=== PATIENT | female | born 1950 | race Caucasian/White ===

== ENCOUNTER → 2020-05-23 02:05 | Outpatient (CLI) | payer MEDICARE, SELFPAY ==
[2020-05-23 19:33] LABS: SARS-CoV-2 RNA PCR Negative
== END ==
PROVIDERS: PCP Internal Medicine; Visit Provider Internal Medicine Gastroenterology
DX: Z01.812 Encounter for preprocedural laboratory examination (principal); Z20.822 Contact with and (suspected) exposure to COVID-19
CPT/HCPCS: C9803; U0003; U0005

== ENCOUNTER 2020-05-27 01:52 | Day surgery (SDC) | payer MEDICARE, SELFPAY ==
[2020-05-18 12:58] VITALS: BMI 38.0
[2020-05-27 11:37] VITALS: BP 141/88; PULSE 94; RESP 18; TEMP 36.2; O2SAT 98; BMI 37.9
[2020-05-27 11:37] LABS: Glucose Point of Care 132 (65-105)
[2020-05-27] MEDS: LACTATED RINGERS 1,000 ML 150 ML IV CONT (11:51)
--- NOTE | 2020-05-27 11:52 | WPDANESEPPF ---
Anes - Initial Pre Proc Eval Procedure: Operation Date: 05/27/20 13:30 Proposed Procedures p Screening Colonoscopy - Nam Garza DO Date/Time: 05/27/20 11:52 Surgeon: Nam Garza DO Pre Op Diagnosis: neoplasm screening Patient Data Age: 70 Gender: F Height: 5 ft 7 in Weight: 109.9 kg Last Vital Signs Temp 97.1 F L 05/27/20 11:37 Pulse 94 05/27/20 11:37 Resp 18 05/27/20 11:37 BP 141/88 H 05/27/20 11:37 Pulse Ox 98 05/27/20 11:37 Allergies Allergy/AdvReac Type Severity Reaction Status Date / Time No Known Allergies Allergy Mild Verified 05/27/20 11:37 Home Medications Medication Instructions Recorded Confirmed Type fluocinonide 0.05 % topical cream 1 applic TOPICAL BID 12/17/18 05/27/20 History metoprolol succinate 25 mg 12.5 mg PO DAILY #90 tablet 01/14/20 05/27/20 Rx tablet,extended release 24 hr potassium chloride 10 mEq 10 meq PO .every other day #90 03/09/20 05/27/20 Rx tablet,extended release tablet atorvastatin 10 mg tablet See Rx Instructions .ROUTE 05/04/20 05/27/20 Rx .COMPLEX #90 tablet furosemide 40 mg tablet See Rx Instructions .ROUTE 05/04/20 05/27/20 Rx .COMPLEX #90 tablet glimepiride 2 mg tablet See Rx Instructions .ROUTE 05/04/20 05/27/20 Rx .COMPLEX #135 tablet irbesartan 300 mg tablet See Rx Instructions .ROUTE 05/04/20 05/27/20 Rx .COMPLEX #90 tablet metformin 1,000 mg tablet See Rx Instructions .ROUTE 05/04/20 05/27/20 Rx .COMPLEX #180 tablet empagliflozin [Jardiance] 10 mg PO DAILY 05/18/20 05/27/20 History Laboratory Tests 05/27/20 11:33 POC Capillary Glucose 132 mg/dl H mg/dl (65-105) Patient hx anesthesia problems: none Family hx anesthesia problems: none PMFSH Past Medical History Medical History Postmenopausal Screening for breast cancer Screening for colon cancer Family History Family History Mother Family history of elevated blood lipids Father Family history of diabetes mellitus in first degree relative Family history of coronary artery disease Cerebrovascular accident Family history of Alzheimer's disease Other Diabetes mellitus Family history of hypercholesterolemia Social History Social History Years smoked: 4 Smoking status: Former smoker Tobacco type: cigarettes Alcohol intake: current Living arrangements: with family Gender identity (if verbalized by the patient): Female Spiritual care concerns: No Anes - Eval Final PreProcedure Day of Procedure 05/27/20 11:52 Patient weight: obese Heart: regular rate and rhythm Lungs: clear to auscultation Airway: Mallampati scale class II Neurological: alert and oriented Last oral intake: >/= 8 hours ASA classification: III Emergent: no Anesthetic plan: proceed Anesthesia type and monitoring: general GIVS and standard monitoring Informed Consent: The patient's anesthetic plan and its attendant risks and benefits were discussed with the patient/family/POA. Questions were solicited and answers provided to the satisfaction of the patient/family/POA.
--- NOTE | 2020-05-27 11:54 | WPDANESEPPF ---
Anes - Initial Pre Proc Eval Procedure: Operation Date: 05/27/20 13:30 Proposed Procedures p Screening Colonoscopy - Nam Garza DO Date/Time: 05/27/20 11:54 Surgeon: Nam Garza DO Pre Op Diagnosis: neoplasm screening Patient Data Age: 70 Gender: F Height: 5 ft 7 in Weight: 109.9 kg Last Vital Signs Temp 97.1 F L 05/27/20 11:37 Pulse 94 05/27/20 11:37 Resp 18 05/27/20 11:37 BP 141/88 H 05/27/20 11:37 Pulse Ox 98 05/27/20 11:37 Allergies Allergy/AdvReac Type Severity Reaction Status Date / Time No Known Allergies Allergy Mild Verified 05/27/20 11:37 Home Medications Medication Instructions Recorded Confirmed Type fluocinonide 0.05 % topical cream 1 applic TOPICAL BID 12/17/18 05/27/20 History metoprolol succinate 25 mg 12.5 mg PO DAILY #90 tablet 01/14/20 05/27/20 Rx tablet,extended release 24 hr potassium chloride 10 mEq 10 meq PO .every other day #90 03/09/20 05/27/20 Rx tablet,extended release tablet atorvastatin 10 mg tablet See Rx Instructions .ROUTE 05/04/20 05/27/20 Rx .COMPLEX #90 tablet furosemide 40 mg tablet See Rx Instructions .ROUTE 05/04/20 05/27/20 Rx .COMPLEX #90 tablet glimepiride 2 mg tablet See Rx Instructions .ROUTE 05/04/20 05/27/20 Rx .COMPLEX #135 tablet irbesartan 300 mg tablet See Rx Instructions .ROUTE 05/04/20 05/27/20 Rx .COMPLEX #90 tablet metformin 1,000 mg tablet See Rx Instructions .ROUTE 05/04/20 05/27/20 Rx .COMPLEX #180 tablet empagliflozin [Jardiance] 10 mg PO DAILY 05/18/20 05/27/20 History Laboratory Tests 05/27/20 11:33 POC Capillary Glucose 132 mg/dl H mg/dl (65-105) Patient hx anesthesia problems: none Family hx anesthesia problems: none PMFSH Past Medical History Medical History Postmenopausal Screening for breast cancer Screening for colon cancer Family History Family History Mother Family history of elevated blood lipids Father Family history of diabetes mellitus in first degree relative Family history of coronary artery disease Cerebrovascular accident Family history of Alzheimer's disease Other Diabetes mellitus Family history of hypercholesterolemia Social History Social History Years smoked: 4 Smoking status: Former smoker Tobacco type: cigarettes Alcohol intake: current Living arrangements: with family Gender identity (if verbalized by the patient): Female Spiritual care concerns: No Anes - Eval Final PreProcedure Day of Procedure 05/27/20 11:54 Patient weight: obese Heart: regular rate and rhythm Lungs: clear to auscultation Airway: Mallampati scale class III Neurological: alert and oriented Last oral intake: >/= 8 hours ASA classification: III Emergent: no Anesthetic plan: proceed Anesthesia type and monitoring: general GIVS and standard monitoring Informed Consent: The patient's anesthetic plan and its attendant risks and benefits were discussed with the patient/family/POA. Questions were solicited and answers provided to the satisfaction of the patient/family/POA.
--- NOTE | 2020-05-27 12:02 | WPDGICN ---
GI Consult Note Consult date/time: 05/27/20 12:02 HPI: Reason for visit is colonoscopy. This very pleasant lady seen at the request of the primary physician. Impression: Screening colonoscopy. The patient is reported to have a thrombosed hemorrhoid /Temporal tag. Diabetes mellitus. Neuropathy. HTN. HLD. Obesity. Cardiomyopathy. Venous stasis. Recommendation: Colonoscopy. History: This very pleasant lady is negative GI review systems. She is reported to have a thrombosed hemorrhoid /hemorrhoidal tag. She is here for colonoscopy. She has never had a colonoscopy. General: very pleasant patient in no acute distress. HEENT: Head was normocephalic sclerae is clear mouth without masses neck was supple. Heart: Rate rhythm regular without S3 or S4.Systolic murmur 2nd right intercostal space in apex. Lungs: CTA. Abdomen: Soft with no guarding or rigidity. Bowel sounds were active. Neurologic: Cranial nerves 2 through 12 intact. No focal defects. No clonus. Musculoskeletal system: Revealed no joint tenderness or swelling no muscle atrophy. Extremities: Reveal no significant edema. Evidence a chronic venous stasis. Skin: Warm and dry with normal turgor. Mental status: intact. Patient is alert and oriented. Review of Systems Review of Systems: All systems reviewed & are unremarkable except as noted in HPI and below PMFSH Past Medical History Medical History (Updated 05/27/20 @ 11:55 by Gerardo Gilbert MD) Benign essential hypertension Cardiomyopathy no echo on the chart Hyperlipidemia Hypertension Postmenopausal Screening for breast cancer Screening for colon cancer Family History Family History Mother Family history of elevated blood lipids Father Family history of diabetes mellitus in first degree relative Family history of coronary artery disease Cerebrovascular accident Family history of Alzheimer's disease Other Diabetes mellitus Family history of hypercholesterolemia Social History Social History Years smoked: 4 Smoking status: Former smoker Tobacco type: cigarettes Alcohol intake: current Living arrangements: with family Gender identity (if verbalized by the patient): Female Spiritual care concerns: No Meds Home Medications and Allergies Home Medications Medication Instructions Recorded Confirmed Type fluocinonide 0.05 % topical cream 1 applic TOPICAL BID 12/17/18 05/27/20 History metoprolol succinate 25 mg 12.5 mg PO DAILY #90 tablet 01/14/20 05/27/20 Rx tablet,extended release 24 hr potassium chloride 10 mEq 10 meq PO .every other day #90 03/09/20 05/27/20 Rx tablet,extended release tablet atorvastatin 10 mg tablet See Rx Instructions .ROUTE 05/04/20 05/27/20 Rx .COMPLEX #90 tablet furosemide 40 mg tablet See Rx Instructions .ROUTE 05/04/20 05/27/20 Rx .COMPLEX #90 tablet glimepiride 2 mg tablet See Rx Instructions .ROUTE 05/04/20 05/27/20 Rx .COMPLEX #135 tablet irbesartan 300 mg tablet See Rx Instructions .ROUTE 05/04/20 05/27/20 Rx .COMPLEX #90 tablet metformin 1,000 mg tablet See Rx Instructions .ROUTE 05/04/20 05/27/20 Rx .COMPLEX #180 tablet empagliflozin [Jardiance] 10 mg PO DAILY 05/18/20 05/27/20 History Allergies Allergy/AdvReac Type Severity Reaction Status Date / Time No Known Allergies Allergy Mild Verified 05/27/20 11:37 Vital Signs Vital Signs - 24 hr 05/27/20 11:37 Temperature 36.2 C L Pulse Rate 94 Respiratory Rate 18 Blood Pressure 141/88 H Pulse Oximetry 98
[2020-05-27 12:42] VITALS: BP 113/67; PULSE 74; RESP 24; O2SAT 96
[2020-05-27 12:52] VITALS: BP 139/76; PULSE 78; RESP 27; O2SAT 96
--- NOTE | 2020-05-27 12:53 | SUR.PHASEII ---
MD Gilbert notified pt HR ranging from 80's to 150's. MD Garza at bedside at this time. pt denies complaints. no new orders. will continue to monitor.
[2020-05-27 13:02] VITALS: BP 141/72; PULSE 82; RESP 27; O2SAT 98
--- NOTE | 2020-05-27 13:03 | SUR.PHASEII ---
cardiac leads were adjusted. vs as charted.
== END 2020-05-27 13:18 | disposition home or self-care (01) ==
PROVIDERS: PCP Internal Medicine; Visit Provider Internal Medicine Gastroenterology
PROC: 0DJD8ZZ Inspection of Lower Intestinal Tract, Via Natural or Artificial Opening Endoscopic (ICD-10-PCS; CPT 45378; principal; 2020-05-27 13:30)
DX: Z12.11 Encounter for screening for malignant neoplasm of colon (principal); C44.520 Squamous cell carcinoma of anal skin; K43.9 Ventral hernia without obstruction or gangrene; E11.40 Type 2 diabetes mellitus with diabetic neuropathy, unspecified; I10 Essential (primary) hypertension; E78.5 Hyperlipidemia, unspecified; I42.9 Cardiomyopathy, unspecified; I87.8 Other specified disorders of veins; E66.9 Obesity, unspecified; Z68.37 Body mass index [BMI] 37.0-37.9, adult; Z87.891 Personal history of nicotine dependence; Z79.84 Long term (current) use of oral hypoglycemic drugs
CPT/HCPCS: 45380; 88305; 88342; J2704; J7120

== ENCOUNTER 2020-06-09 15:15 | Outpatient (CLI) | payer MEDICARE, SELFPAY ==
--- NOTE | ~2020-06-09 | CT_ITS ---
EXAMINATION: CT chest abdomen pelvis w con DATE: 06/09/2020 16:01 CDT INDICATION: Rectal mass TECHNIQUE: Computed tomography (CT) of the chest, abdomen, and pelvis was performed with 100 cc Omnip aque 350 intravenous contrast. The dose-length product was 1449.79 mGy-cm. COMPARISON: None FINDINGS: CHEST CT: There is calcified granuloma of the left lower lobe. There is dependent atelectasis. No endobronchial lesions. No pathologically enlarged thoracic lymph nodes. No significant pleural or pericardial effu pablito. ABDOMEN/PELVIS CT: The liver, spleen, adrenal glands and left kidney are unremarkable. There is a 3 mm nonobstructing ri ght renal stone. There are gallstones. The pancreas is atrophic containing calcifications and multipl e small cystic masses, largest measuring 1.8 cm. Nonobstructive bowel gas pattern. Normal appendix. There is a lower abdominal wall ventral hernia con taining nonobstructed transverse colon no definitive rectal mass identified. No pathologically enlarg ed lymph nodes. No lytic or blastic lesions. Severe thoracic and lumbar spondylosis with scoliosis. IMPRESSION: 1. Chronic pancreatitis with multiple small cystic masses of the pancreatic body measuring up to 1.8 cm. The differential diagnosis includes pseudocyst, intraductal papillary mucinous neoplasm (IPMN), m ucinous cystic neoplasm (MCN), and the less common serous cystadenoma and neuroendocrine tumor. 2: Nonobstructing right nephrolithiasis. 3: Large periumbilical hernia containing nonobstructed transverse colon. Reviewed, dictated and finalized at location A. IMPRESSION: 1. Chronic pancreatitis with multiple small cystic masses of the pancreatic bod y measuring up to 1.8 cm. The differential diagnosis includes pseudocyst, intra ductal papillary mucinous neoplasm (IPMN), mucinous cystic neoplasm (MCN), and the less common serous cystadenoma and neuroendocrine tumor. 2: Nonobstructing right nephrolithiasis. 3: Large periumbilical hernia containing nonobstructed transverse colon.
[2020-06-09 15:41] LABS: Estimated Glomerular Filt Rate 49
== END 2020-06-09 15:16 | disposition home or self-care (01) ==
LOC: ANHIMG 15:20
PROVIDERS: PCP Internal Medicine; Visit Provider Internal Medicine Gastroenterology
DX: K62.89 Other specified diseases of anus and rectum (principal); K42.9 Umbilical hernia without obstruction or gangrene; N20.0 Calculus of kidney; K85.90 Acute pancreatitis without necrosis or infection, unspecified
CPT/HCPCS: 71260; 74177; Q9967

== ENCOUNTER 2020-09-21 09:30 | Outpatient (CLI) | payer MEDICARE, SELFPAY ==
--- NOTE | 2020-09-21 09:30 | ECG_ITS ---
Measurements Intervals [place] Rate: 66 P: 49 ND: 168 QRS: -23 QRSD: 106 T: 30 QT: 384 QTc: 404 Interpretive Statements SINUS RHYTHM BORDERLINE R WAVE PROGRESSION, ANTERIOR LEADS BORDERLINE ST ABNORMALITY- HIGH LATERAL LEADS BASELINE ARTIFACT- I, II, III, AVR, AVL, AVF BORDERLINE ECG Electronically Signed On 09-21-2020 11:08:16 CDT by Rory King D.O.
== END 2020-09-21 09:31 | disposition home or self-care (01) ==
LOC: ANHSURGERY 09:34
PROVIDERS: PCP Internal Medicine; Visit Provider Surgery
DX: I10 Essential (primary) hypertension (principal); Z01.818 Encounter for other preprocedural examination; R94.31 Abnormal electrocardiogram [ECG] [EKG]
CPT/HCPCS: 93005

== ENCOUNTER 2020-09-24 11:07 | Observation (INO) | payer MEDICARE, SELFPAY ==
[2020-09-17 13:00] VITALS: BMI 37.9
--- NOTE | 2020-09-22 11:02 | PM.IMHP ---
H&P: HPI History of Present Illness Date/Time: 09/22/20 11:02 Chief Complaint: Large ventral hernia Narrative: the patient is a 70-year-old woman with qvo-scuvorz-qeawvwueg diabetes, obesity, hypertension and a history of cardiomyopathy. She underwent a colonoscopy last May. At this procedure she was noted to have a fungating mass at the anal verge. Biopsies of this showed squamous cell carcinoma. She underwent chemo radiation therapy, then I grow regimen, which was completed on August 07, 2020. She followed up with radiation oncology approximately 1 month later and the radiation associated perineal skin issues had resolved. During the patient's colonoscopy on 05/27/2020, the scope was only able to be advanced to the mid transverse colon due to a large ventral hernia containing the transverse colon. This was verified on a CT scan of the chest abdomen and pelvis done on 06/09/2020. Prior to the colonoscopy, the patient did not know she had her hernia. She did have a history of some bloody stools. I saw the patient both in May and then again in July. 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 Having completed her radiation therapy for anal canal cancer over 6 weeks ago, she is taken to surgery now for laparoscopic repair of a large ventral hernia. Review of Systems Review of Systems: All systems reviewed & are unremarkable except as noted in HPI and below Constitutional: Constitutional: Denies chills and Denies fever(s) ENT: Denies headache(s) Cardiovascular: Cardiovascular: Denies chest pain, Denies diaphoresis, Denies dyspnea and Denies paroxysmal nocturnal dyspnea Respiratory: Respiratory: Denies chest congestion, Denies cough and Denies dyspnea Gastrointestinal: Gastrointestinal: Denies bloating, Denies constipation and Denies nausea Integumentary/Breasts: Skin/Breast: Denies lesions and Denies rash Neurologic: Denies confusion and Denies headache(s) [facility] Past Medical History Medical History (Updated 09/22/20 @ 11:14 by Fabio Hoyt MD) Benign essential hypertension Cardiomyopathy no echo on the chart Hyperlipidemia Hypertension Postmenopausal Screening for breast cancer Screening for colon cancer Surgical History Surgical History History of right knee joint replacement Hx of colonoscopy unable to complete due to transverse colon in a hernia Family History Family History Mother Family history of elevated blood lipids Father Family history of diabetes mellitus in first degree relative Family history of coronary artery disease Cerebrovascular accident Family history of Alzheimer's disease Sibling Hodgkin disease Other Diabetes mellitus Family history of hypercholesterolemia Social History Social History (Updated 09/14/20 @ 10:53 by Kate Moran MA) Smoking packs per day: 0.5 Smoking cigarettes per day: 10.0 Years smoked: 4 Smoking pack-years: 2.00 Smoking status: Former smoker Tobacco type: cigarettes Second hand tobacco smoke exposure: Yes Smoking end date: 02/20/71 Additional smoking assessment comments: TEENAGE YEARS (16) Alcohol intake: never Alcohol use details: 3 times per year Substance use: never Substance use type: does not use Gender identity (if verbalized by the patient): Female Spiritual care concerns: No Meds Home Medications and Allergies Home Medications Medication Instructions Recorded Confirmed Type atorvastatin 10 mg tablet See Rx Instructions .ROUTE 05/04/20 09/18/20 Rx .COMPLEX #90 tablet furosemide 40 mg tablet See Rx Instructions .ROUTE 05/04/20 09/18/20 Rx .COMPLEX #90 tablet glimepiride 2 mg tablet See Rx Instructions .ROUTE 05/04/20 09/18/20 Rx .COMPLEX #135 tablet metformin 1,000 mg
[2020-09-23] VITALS (19 sets, daily range): BP systolic 121–149; BP diastolic 55–96; PULSE 62–95; RESP 10–18; TEMP 36.1–36.4; O2SAT 94–99; BMI 36.3; BMI 36.8
[2020-09-23] MEDS: LACTATED RINGERS 1,000 ML 30 ML IV CONT ×2 (08:29→12:40)
[2020-09-23] MEDS: ACETAMINOPHEN 500 MG TABLET 1000 MG PO (08:29)
[2020-09-23] MEDS: KETOROLAC 15 MG/ML VIAL (*BKC) IV PUSH (08:29)
[2020-09-23 08:54] LABS: Glucose Point of Care 136 mg/dl (65-105)
--- NOTE | 2020-09-23 09:45 | WPDHPUPDATE1 ---
History and Physical Update Update Date/Time: 09/23/20 09:45 History and Physical has been reviewed, including an updated exam of the patient. There are NO changes in the patient's condition. Risks, benefits, and alternatives have been discussed and questions answered. Patient agrees to proceed with procedure.
--- NOTE | 2020-09-23 09:45 | WPDANESEPPF ---
Anes - Initial Pre Proc Eval Procedure: Operation Date: 09/23/20 09:30 Proposed Procedures p Laparoscopic Repair Ventral Hernia with Mesh - Fabio Hoyt MD Date/Time: 09/23/20 09:45 Surgeon: Fabio Hoyt MD Pre Op Diagnosis: Ventral hernia Patient Data Age: 70 Gender: F Height: 1.7 m Weight: 105.3 kg Last Vital Signs Temp 36.4 C 09/23/20 08:06 Pulse 71 09/23/20 08:06 Resp 18 09/23/20 08:06 BP 124/62 09/23/20 08:06 Pulse Ox 95 09/23/20 08:06 Allergies Allergy/AdvReac Type Severity Reaction Status Date / Time No Known Allergies Allergy Mild Verified 09/23/20 08:01 Home Medications Medication Instructions Recorded Confirmed Type atorvastatin 10 mg tablet See Rx Instructions .ROUTE 05/04/20 09/23/20 Rx .COMPLEX #90 tablet furosemide 40 mg tablet See Rx Instructions .ROUTE 05/04/20 09/23/20 Rx .COMPLEX #90 tablet glimepiride 2 mg tablet See Rx Instructions .ROUTE 05/04/20 09/23/20 Rx .COMPLEX #135 tablet metformin 1,000 mg tablet See Rx Instructions .ROUTE 05/04/20 09/23/20 Rx .COMPLEX #180 tablet empagliflozin 10 mg tablet 20 mg PO DAILY #30 tablet 07/27/20 09/23/20 Rx potassium chloride 10 mEq 10 meq PO DAILY #90 tablet 07/29/20 09/23/20 Rx tablet,extended release fluocinonide 0.05 % topical cream 1 applic TOPICAL BID PRN 09/14/20 09/23/20 History irbesartan 300 mg HS 09/17/20 09/23/20 History metoprolol succinate 12.5 mg PO HS 09/17/20 09/23/20 History Laboratory Tests 09/23/20 08:51 POC Capillary Glucose 136 mg/dl H mg/dl (65-105) Patient hx anesthesia problems: none Family hx anesthesia problems: none PMFSH Past Medical History Medical History Benign essential hypertension Cardiomyopathy no echo on the chart Hyperlipidemia Hypertension Postmenopausal Screening for breast cancer Screening for colon cancer Surgical History Surgical History History of right knee joint replacement Hx of colonoscopy unable to complete due to transverse colon in a hernia Family History Family History Mother Family history of elevated blood lipids Father Family history of diabetes mellitus in first degree relative Family history of coronary artery disease Cerebrovascular accident Family history of Alzheimer's disease Sibling Hodgkin disease Other Diabetes mellitus Family history of hypercholesterolemia Social History Social History Smoking packs per day: 0.5 Smoking cigarettes per day: 10.0 Years smoked: 3 Smoking pack-years: 1.50 Smoking status: Former smoker Tobacco type: cigarettes Second hand tobacco smoke exposure: Yes Smoking end date: 02/20/71 Additional smoking assessment comments: smoked only socially Alcohol intake: current Alcohol use details: 3 times per year Substance use: never Substance use type: does not use Living arrangements: with family Gender identity (if verbalized by the patient): Female Spiritual care concerns: No Anes - Eval Final PreProcedure Day of Procedure 09/23/20 09:45 Patient weight: obese Heart: regular rate and rhythm and murmur (II/ SM) Lungs: clear to auscultation Airway: Mallampati scale class II Neurological: alert and oriented Last oral intake: >/= 8 hours ASA classification: III Emergent: no Anesthetic plan: proceed Anesthesia type and monitoring: general ETT and standard monitoring Informed Consent: The patient's anesthetic plan and its attendant risks and benefits were discussed with the patient/family/POA. Questions were solicited and answers provided to the satisfaction of the patient/family/POA.
--- NOTE | 2020-09-23 09:52 | SUR.PREOP ---
PT AND DR BECK NOTIFIED THE OR ROOM IS RUNNING APPROX 30 MIN BEHIND.
[2020-09-23] MEDS: ceFAZolin 2 GM/D5W 50 ML 2 GM/50 ML BAG IVPB (10:30)
[2020-09-23] MEDS: BUPIVACAINE/EPINEPHRINE 0.5% 50 ML VIAL (10:56)
--- NOTE | 2020-09-23 12:38 | W.PM.PROC2 ---
Procedure Note - Detailed Date of Procedure 09/23/20 Pre-op Diagnosis Ventral hernia Post-op Diagnosis same Procedure Performed Laparoscopic repair of large ventral hernia with 20 x 25 cm Symbotex mesh Surgeon Fbaio Hoyt MD Radiologic Technology Teacher Marycarmen VIVEROS Anesthesia general and local ( 0.5% Marcaine with epinephrine) Indications patient is a 70-year-old woman who has a large ventral hernia that started at the umbilicus but now represents chronic evisceration and a significant ventral hernia. She is noted to have transverse colon in the hernia and discomfort associated with it. It was then able to be reduced. She is taken to surgery now for laparoscopic repair. 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 Findings 6 x 6 cm defect. Fortunately the omentum and transverse colon reduced with minimal dissection. 25 x 20 cm Symbotex mesh was used oriented along the same line as the linea alba. Description of Procedure The patient was taken to surgery and induced into general anesthesia. Weeks catheter was placed. The entire abdomen was prepped and draped. Initial trocar was a 5 mm port placed in the left subcostal position. This would applied Medical optical trocar. Once intra-abdominal, it insufflated easily. From there we placed another 5 mm port in the left lateral abdomen and a 10 11 port in the left lower quadrant laterally. Later in the case we placed two 5 mm ports in the lateral right abdomen 1 in the upper quadrant, 1 in the right lower quadrant. The herniated omentum and transverse colon were easily seen. Using gentle traction and minimal dissection at the edge of the hernia defect this all reduced in 1 piece and did not have any adhesions that required deep dissection up in the hernia sac. The hernia defect looked pretty symmetric. I introduced a ruler into the abdominal cavity and actually measured this with the abdomen insufflated to 20 cm. It measured at 6 cm diameter and was essentially a anvik. From there, I reduced insufflation to 12 mm pressure. I used a 22 gauge needle and a marker. I placed cespedes on the skin at the margins of the hernia defect. I connected each of these dots to delineate where the hernia was located. The 25 x 20 cm mesh was chosen. It was placed symmetrically over the defect in the area were it would be placed intra-abdominally. I marked around the edges of the hernia mesh. I then marked where each of the transfascial sutures would be placed to position the mesh as desired. I then used 2 0 Hawkins-Lee suture and placed each of these transfascial sutures in the mesh. The mesh was then rolled and introduced into the abdominal cavity through the 10 11 left lower quadrant port. The mesh was unrolled and oriented appropriately. Using the [employer] suture pass device, I placed initially the lower abdominal midline transfascial suture. The right lateral transfascial suture was placed next. The left lateral transfascial suture was then placed. Finally the cephalad midline suture was placed. The left lateral suture had to be repositioned slightly more medial than it was placed initially. Once this was done the mesh was in good position. The Hawkins-Lee transfascial sutures were each tied down securing the mesh to the anterior abdominal wall. I then used the secure strap and placed absorbable tacks around the edges of the hernia defect securing the mesh to the abdominal wall. I moved out to each corner of the mesh and placed it in a flattened well secured position. It was at this point in the procedure that the 2 right-sided trocars were placed. I moved to the right side so that I could better position the left side of the mesh. Eventually the mesh was secured quite well with the secure straps. The repair looked to be as expected. I cut the transfascial sutures at the skin level. We stopped insufflation and evacuated CO2. The fascia was closed at the 10 11 port site with
[2020-09-23 12:49] LABS: Glucose Point of Care 165 mg/dl (65-105)
--- NOTE | 2020-09-23 14:48 | SUR.PHASEI ---
[id number] faxed floor notified
[2020-09-23 18:24] LABS: Glucose Point of Care 195 mg/dl (65-105)
[2020-09-23] MEDS: IBUPROFEN IV 800 MG/200 ML 800 MG/200 ML BAG 400 MG IVPB ×2 (19:57→23:53)
[2020-09-23] MEDS: GLIMEPIRIDE 1 MG TABLET PO (19:57)
[2020-09-23] MEDS: SENNA/DOCUSATE SODIUM TABLET 2 TAB PO (20:39)
[2020-09-23] MEDS: IRBESARTAN 150 MG TABLET 300 MG BY MOUTH (20:39)
[2020-09-23] MEDS: ENOXAPARIN 30 MG/0.3 ML SYRINGE SUB-Q (20:39)
[2020-09-23 22:16] LABS: Glucose Point of Care 187 mg/dl (65-105)
[2020-09-23] MEDS: METOPROLOL SUCCINATE EXT REL 12.5 MG TABCR PO (22:23)
[2020-09-24] VITALS (7 sets, daily range): BP systolic 109–142; BP diastolic 60–79; PULSE 64–84; RESP 14–16; TEMP 36.3–36.7; O2SAT 93–98
[2020-09-24] MEDS: IBUPROFEN IV 800 MG/200 ML 800 MG/200 ML BAG 400 MG IVPB ×3 (05:06→17:47)
[2020-09-24 05:45] LABS: Hematocrit 33.4 % (37.0-47.0); Hemoglobin 10.3 g/dL (12.0-15.0); Mean Corpuscular HGB Conc 30.8 g/dl (32-36); Mean Corpuscular Hemoglobin 28.1 pg (26-34); Mean Corpuscular Volume 91.3 fl (80-100); Mean Platelet Volume 9.8 fl (7.4-10.4); Platelet Count Result 217 k/mm3 (150-375); Red Blood Count 3.66 M/mm3 (4.2-5.4); Red Cell Distribution Width 24.1 % (11.5-14.5)
[2020-09-24 05:53] LABS: Anion Gap 5 mmol/L (8-16); Blood Urea Nitrogen 22 mg/dL (7-17); Calcium 8.8 mg/dL (8.4-10.2); Carbon Dioxide 27 mmol/L (22-30); Chloride 100 mmol/L (98-107); Estimated CRCL calculation 56 ml/min; Estimated Glomerular Filt Rate 55; Glucose 124 mg/dL (65-110); Potassium 4.3 mmol/L (3.4-5.0); Sodium 132 mmol/L (137-145)
--- NOTE | 2020-09-24 08:41 | PM.PNGS ---
Progress Note: A&P Assessment and Plan (1) Ventral hernia: Qualifiers: Obstruction and gangrene presence: without obstruction or gangrene Qualified Code(s): K43.9 - Ventral hernia without obstruction or gangrene Code(s): K43.9 - Ventral hernia without obstruction or gangrene Status: Chronic Assessment and Plan: pain being relieved very well with IV ibuprofen. Continue these as analgesics with morphine and [place] as backup. DC Weeks today. Increase ambulation. Advance diet to regular. Recheck labs again tomorrow. Doing well so far. (2) DM w/o complication type II: Code(s): E11.9 - Type 2 diabetes mellitus without complications Status: Chronic Assessment and Plan: Blood sugars under 200. Hospitalist to see. Continue sliding scale insulin and diabetic diet. (3) Hypertension: Qualifiers: Hypertension type: essential hypertension Qualified Code(s): I10 - Essential (primary) hypertension Code(s): I10 - Essential (primary) hypertension Status: Chronic Assessment and Plan: On home medications. Monitoring. (4) BMI 37.0-37.9, adult: Code(s): Z68.37 - Body mass index [BMI] 37.0-37.9, adult Status: Chronic Subjective Subjective Date/Time Seen: 09/24/20 08:41 Post Op day: 1 Patient reports: no new complaints, still having pain ( IV ibuprofen really helping), no flatus, no bowel movement and afebrile Exam Const: General: comfortable and no acute distress; No confusion Orientation/consciousness: patient oriented x3 and No confusion GI: Inspection: incision ( incisions dry and intact, healing well), obesity, no visible herniation and other ( minimal seroma, binder in place) GI Palp: Yes Soft to palpation, Yes Tenderness to palpation present (GI), No Guarding due to palpation present (GI), No Hernia present, No Ascites present and No Rebound tenderness present Auscultation: normal bowel sounds Neuro: General: patient oriented x3, no focal motor deficits and No confusion Extrem: General: no calf tenderness and no edema Psych: Affect: normal affect Insight: Good insight present (Psych) Judgement: Good judgement present (Psych) Objective Data Vital Signs Vital Signs: Vital Signs - 24 hr 09/23/20 12:45 09/23/20 13:00 09/23/20 13:15 Temperature 36.2 C L Pulse Rate 86 87 81 Respiratory Rate 14 16 10 L Blood Pressure 138/60 149/89 H 139/60 Pulse Oximetry 99 99 99 09/23/20 13:30 09/23/20 13:45 09/23/20 14:00 Temperature Pulse Rate 85 78 84 Respiratory Rate 18 12 16 Blood Pressure 142/68 H 125/73 137/66 Pulse Oximetry 97 94 95 09/23/20 14:15 09/23/20 14:30 09/23/20 14:50 Temperature Pulse Rate 80 78 75 Respiratory Rate 14 16 10 L Blood Pressure 136/75 131/60 121/75 Pulse Oximetry 98 96 09/23/20 15:05 09/23/20 15:30 09/23/20 15:45 Temperature 36.1 C L 36.2 C L Pulse Rate 62 82 81 Respiratory Rate 12 14 16 Blood Pressure 125/55 L 143/73 H 142/73 H Pulse Oximetry 96 98 97 09/23/20 16:15 09/23/20 17:15 09/23/20 18:00 Temperature 36.2 C L 36.2 C L 36.4 C Pulse Rate 95 89 90 Respiratory Rate 16 16 14 Blood Pressure 146/92 H 145/96 H 136/73 Pulse Oximetry 94 94 94 09/23/20 20:00 09/23/20 22:00 09/23/20 22:23 Temperature 36.3 C L Pulse Rate 89 89 89 Respiratory Rate 18 18 Blood Pressure 131/69 Pulse Oximetry 98 98 09/24/20 00:00 09/24/20 04:00 Temperature 36.3 C L 36.4 C Pulse Rate 74 69 Respiratory Rate 16 16 Blood Pressure 133/60 109/79 Pulse Oximetry 93 98 Intake/Output Intake/Output: Intake & Output 09/21/20 09/22/20 09/23/20 09/24/20 23:59 23:59 23:59 23:59 Intake Total 1340 900 Output Total 440 1400 Balance 900 -500 Meds/Results Medications: Active Medications Generic Name Dose Route Start Last Admin Trade Name Freq PRN Reason Stop Dose Admin Acetaminophen 500 mg 09/23/20 15:20 Acetaminophen 500 Mg Tablet PO Q6H PRN Mild
[2020-09-24] MEDS: POTASSIUM CHLORIDE 10 MEQ TABLET.ER PO (09:10)
[2020-09-24] MEDS: metFORMIN HCL 500 MG TABLET 1000 MG BY MOUTH ×2 (09:10→17:47)
[2020-09-24] MEDS: GLIMEPIRIDE 2 MG TABLET BY MOUTH (09:10)
[2020-09-24] MEDS: FUROSEMIDE 40 MG TABLET BY MOUTH (09:11)
[2020-09-24] MEDS: polyethylene glycoL 3350 17 GM POWD.PACK PO (09:11)
[2020-09-24 09:34] LABS: Glucose Point of Care 165 mg/dl (65-105)
--- NOTE | 2020-09-24 10:47 | WPDANESPN ---
Anes - Prog Note Post-Op Date/Time: 09/24/20 10:47 Cardiovascular status: normal Respiratory status: normal Airway patency: baseline Mental status: baseline Post-Op hydration status: normal Vital Signs: Last Vital Signs Temp 36.7 C 09/24/20 08:00 Pulse 66 09/24/20 08:00 Resp 16 09/24/20 08:00 BP 142/74 H 09/24/20 08:00 Pulse Ox 97 09/24/20 08:00 Pain Score (VAS): 0 I/O: Intake & Output 09/23/20 09/24/20 09/24/20 23:59 07:59 15:59 Intake Total 590 900 240 Output Total 300 1400 475 Balance 290 500 -235 Laboratory Tests 09/24/20 05:34 09/24/20 05:34 09/23/20 09/23/20 09/23/20 12:46 18:20 19:54 WBC RBC Hgb Hct MCV MCH MCHC RDW Plt Count MPV Sodium Potassium Chloride Carbon Dioxide Anion Gap BUN Creatinine Estim Creat Clear Calc Estimated GFR Glucose POC Capillary Glucose 165 H 195 H 187 H Calcium 09/24/20 09/24/20 09/24/20 05:34 05:34 09:09 WBC 8.0 RBC 3.66 L Hgb 10.3 L Hct 33.4 L MCV 91.3 MCH 28.1 MCHC 30.8 L RDW 24.1 H Plt Count 217 MPV 9.8 Sodium 132 L Potassium 4.3 Chloride 100 Carbon Dioxide 27 Anion Gap 5 L BUN 22 H Creatinine 1.00 Estim Creat Clear Calc 56 Estimated GFR 55 L Glucose 124 H POC Capillary Glucose 165 H Calcium 8.8 Post-procedural complaints: none Patient Feedback: Patient satisfied with anesthetic care.
[2020-09-24] MEDS: ENOXAPARIN 40 MG/0.4 ML SYRINGE SUB-Q (10:49)
[2020-09-24] MEDS: FAMOTIDINE 20 MG TABLET PO ×2 (10:49→21:56)
[2020-09-24 12:45] LABS: Glucose Point of Care 133 mg/dl (65-105)
--- NOTE | 2020-09-24 14:04 | PM.IMCN ---
Assessment and Plan Assessment and plan (1) DM w/o complication type II: Code(s): E11.9 - Type 2 diabetes mellitus without complications Status: Chronic Assessment and Plan: Jazmín Peañloza is a 70 year old female with history of noninsulin dependent diabetes, obesity, hypertension, cardiomyopathy, and squamous cell carcinoma, during recent procedure patient was found to have ventral hernia and patient was seen by surgery service and was taken to OR and had her surgical repair of the hernia, we have been consulted for medical management patient diabetes hypertension and any medical issues while in the hospital, patient's home medication have been resumed, patient blood sugar reasonably well controlled as well as blood pressure patient has no complaint of chest pain shortness of breath palpitation fever or chills. will continue to monitor patient with you if you have any question please feel free to contact us. (2) Hypertension: Qualifiers: Hypertension type: essential hypertension Qualified Code(s): I10 - Essential (primary) hypertension Code(s): I10 - Essential (primary) hypertension Status: Chronic Assessment and Plan: will continue home regimen and monitor. HPI Data of Consult Consult date: 09/24/20 Requesting Physician: Fabio Hoyt MD Primary Care Provider: Marcila Mendoza DO Consult Narrative Narrative: Jazmín Peñaloza is a 70 year old female with history of noninsulin dependent diabetes, obesity, hypertension, cardiomyopathy, and squamous cell carcinoma, during recent procedure patient was found to have ventral hernia and patient was seen by surgery service and was taken to OR and her surgical repair of the hernia, we have been consulted for medical management patient diabetes hypertension and any medical issues while in the hospital, patient's home medication have been resumed, patient blood sugar reasonably well controlled as well as blood pressure patient has no complaint of chest pain shortness of breath palpitation fever or chills. will continue to monitor patient with you if you have any question please feel free to contact us. Review of Systems Review of Systems: All systems reviewed & are unremarkable except as noted in HPI and below PMFSH Past Medical History Medical History Benign essential hypertension Cardiomyopathy no echo on the chart Hyperlipidemia Hypertension Postmenopausal Screening for breast cancer Screening for colon cancer Surgical History Surgical History History of right knee joint replacement Hx of colonoscopy unable to complete due to transverse colon in a hernia Family History Family History Mother Family history of elevated blood lipids Father Family history of diabetes mellitus in first degree relative Family history of coronary artery disease Cerebrovascular accident Family history of Alzheimer's disease Sibling Hodgkin disease Other Diabetes mellitus Family history of hypercholesterolemia Social History Social History Smoking packs per day: 0.5 Smoking cigarettes per day: 10.0 Years smoked: 3 Smoking pack-years: 1.50 Smoking status: Former smoker Tobacco type: cigarettes Second hand tobacco smoke exposure: Yes Smoking end date: 02/20/71 Additional smoking assessment comments: smoked only socially Alcohol intake: never Alcohol use details: 3 times per year Substance use: never Substance use type: does not use Living arrangements: with family Gender identity (if verbalized by the patient): Female Spiritual care concerns: Yes (Church) Meds Home Medications and Allergies Home Medications Medication Instructions Recorded Confirmed Type atorvas
[2020-09-24 17:11] LABS: Glucose Point of Care 124 mg/dl (65-105)
[2020-09-24] MEDS: GLIMEPIRIDE 1 MG TABLET PO (17:47)
--- NOTE | 2020-09-24 21:40 | PHAR ---
RX [id number] CONTAINS DRUG NAME: JARDIANCE INGREDIENTS: EMPAGLIFLOZIN -- 10 MG RELATED DOCUMENTS: DRUGDEX EVALUATIONS - EMPAGLIFLOZIN COLOR: LIGHT YELLOW SHAPE: HOH IMPRINT: S 10 FORM: ORAL TABLET
[2020-09-24] MEDS: IRBESARTAN 150 MG TABLET 300 MG BY MOUTH (21:55)
[2020-09-24] MEDS: SENNA/DOCUSATE SODIUM TABLET 2 TAB PO (21:55)
[2020-09-24] MEDS: METOPROLOL SUCCINATE EXT REL 12.5 MG TABCR PO (21:56)
[2020-09-24 22:06] LABS: Glucose Point of Care 146 mg/dl (65-105)
[2020-09-25] VITALS: BP 129/66; PULSE 74; RESP 16; TEMP 36.4; O2SAT 94
[2020-09-25] MEDS: IBUPROFEN IV 800 MG/200 ML 800 MG/200 ML BAG 400 MG IVPB (01:15)
[2020-09-25 05:36] LABS: Hemoglobin 10.6 g/dL (12.0-15.0); Mean Corpuscular HGB Conc 31.2 g/dl (32-36); Mean Corpuscular Hemoglobin 28.6 pg (26-34); Mean Corpuscular Volume 91.9 fl (80-100); Mean Platelet Volume 9.7 fl (7.4-10.4); Platelet Count Result 215 k/mm3 (150-375); Red Cell Distribution Width 24.4 % (11.5-14.5); White Blood Count 6.4 K/mm3 (4.5-10.0)
[2020-09-25 05:51] LABS: Anion Gap 6 mmol/L (8-16); Blood Urea Nitrogen 20 mg/dL (7-17); Calcium 8.8 mg/dL (8.4-10.2); Carbon Dioxide 24 mmol/L (22-30); Chloride 107 mmol/L (98-107); Estimated CRCL calculation 62 ml/min; Estimated Glomerular Filt Rate > 60; Glucose 101 mg/dL (65-110); Magnesium 2.1 mg/dL (1.6-2.3); Potassium 4.2 mmol/L (3.4-5.0); Sodium 137 mmol/L (137-145)
[2020-09-25 06:00] VITALS: BP 148/72; PULSE 67; RESP 18; TEMP 36.6; O2SAT 97
[2020-09-25] MEDS: IBUPROFEN IV 800 MG/200 ML 800 MG/200 ML BAG 300 MG IVPB (06:31)
[2020-09-25 08:04] LABS: Glucose Point of Care 92 mg/dl (65-105)
[2020-09-25] MEDS: metFORMIN HCL 500 MG TABLET 1000 MG BY MOUTH (09:23)
[2020-09-25] MEDS: GLIMEPIRIDE 2 MG TABLET BY MOUTH (09:24)
[2020-09-25] MEDS: ENOXAPARIN 40 MG/0.4 ML SYRINGE SUB-Q (09:24)
[2020-09-25] MEDS: FUROSEMIDE 40 MG TABLET BY MOUTH (09:25)
[2020-09-25] MEDS: FAMOTIDINE 20 MG TABLET PO (09:25)
[2020-09-25] MEDS: polyethylene glycoL 3350 17 GM POWD.PACK PO (09:26)
[2020-09-25 10:00] VITALS: BP 149/77; PULSE 68; RESP 16; TEMP 36.4; O2SAT 99
--- NOTE | 2020-09-25 11:11 | PM.DS ---
DS: Admitting Diagnosis Admitting Diagnosis large ventral hernia squamous cell cancer of the anal canal status post Joan regimen treatment type 2 diabetes morbid obesity essential hypertension DS: Discharge Diagnosis Discharge Diagnosis (1) Ventral hernia: Qualifiers: Obstruction and gangrene presence: without obstruction or gangrene Qualified Code(s): K43.9 - Ventral hernia without obstruction or gangrene Code(s): K43.9 - Ventral hernia without obstruction or gangrene Status: Chronic Assessment and Plan: underwent laparoscopic repair of ventral hernia with 25 x 20 cm Symbotex mesh on 09/23/2020. (2) Cancer of anal canal: Code(s): C21.1 - Malignant neoplasm of anal canal Status: Chronic (3) BMI 38.0-38.9,adult: Code(s): Z68.38 - Body mass index [BMI] 38.0-38.9, adult Status: Chronic (4) DM w/o complication type II: Code(s): E11.9 - Type 2 diabetes mellitus without complications Status: Chronic (5) Hypertension: Qualifiers: Hypertension type: essential hypertension Qualified Code(s): I10 - Essential (primary) hypertension Code(s): I10 - Essential (primary) hypertension Status: Chronic DS: Summary Hospital Course Hospital Course: Patient is a 70-year-old woman who finished chemo radiation therapy for squamous cell cancer of the anal canal in late July. She was noted at a colonoscopy last March 24 have a large ventral hernia with transverse colon in the hernia and unable to complete the colonoscopy due to the colon being in the hernia sac. She was seen in the office and prepared for surgery. She was taken to the operating room on 09/23/2020. A large central abdominal ventral hernia was noted with chronic evisceration. There was a large subcutaneous pocket below the umbilicus due to the chronically eviscerated omentum and transverse colon. There was no loss of abdominal domain. On 09/23/2020 the patient underwent an uneventful laparoscopic ventral hernia repair. A large piece of Symbotex mesh, 25 x 20 cm, was used. Patient has been an and binder to minimize the seroma since surgery. She was comfortable largely with the IV ibuprofen on a scheduled q.6 hour dose. This was converted to p.r.n. oral ibuprofen on the day of discharge. Hospitalist service saw the patient in consultation and assisted with management of her medical comorbidities including diabetes. Blood sugars were well controlled on the day of discharge. She was comfortable, tolerating food well and able to be discharged in the afternoon on postop day 2. Status at Discharge Functional status at discharge: independent ambulation Overall status at discharge: patient is progressing back to baseline Time Spent with Patient Time attestation: Total time spent providing and/or coordinating discharge services: Exam GI: Inspection: incision ( Healing well), Pannus present, obesity, no visible herniation and other ( minimal seroma, binder in place.) GI Palp: Yes Soft to palpation, Yes Tenderness to palpation present (GI) ( Mild tenderness) and No Hernia present Auscultation: normal bowel sounds DS: Data Data Completed and Pending Labs on day of discharge: Labs from last 24 hours 09/25/20 09/25/20 09/25/20 07:45 05:22 05:22 WBC 6.4 RBC 3.70 L Hgb 10.6 L Hct 34.0 L MCV 91.9 MCH 28.6 MCHC 31.2 L RDW 24.4 H Plt Count 215 MPV 9.7 Sodium 137 Potassium 4.2 Chloride 107 Carbon Dioxide 24 Anion Gap 6 L BUN 20 H Creatinine 0.90 Estim Creat Clear Calc 62 Estimated GFR > 60 Glucose 101 POC Capillary Glucose 92 Calcium 8.8 Magnesium 2.1 09/24/20 09/24/20 09/24/20 21:59 17:07 12:18 WBC RBC Hgb Hct MCV MCH MCHC RDW Plt Count MPV Sodium Potassium Chloride Carbon Dioxide Anion Gap BUN Creatinine Estim Creat Clear Calc
[2020-09-25] MEDS: POTASSIUM CHLORIDE 10 MEQ TABLET.ER PO (11:25)
[2020-09-25 13:40] LABS: Glucose Point of Care 81 mg/dl (65-105)
--- NOTE | 2020-09-25 14:11 | PM.IMPN ---
Progress Note: A&P Assessment and Plan (1) DM w/o complication type II: Code(s): E11.9 - Type 2 diabetes mellitus without complications Status: Chronic Assessment and Plan: 09/25/20 14:11 Jazmín Peñaloza is a 70 year old female with history of noninsulin dependent diabetes, obesity, hypertension, cardiomyopathy, and squamous cell carcinoma, during recent procedure patient was found to have ventral hernia and patient was seen by surgery service and was taken to OR and had her surgical repair of the hernia, we have been consulted for medical management patient diabetes hypertension and any medical issues while in the hospital, patient's home medication have been resumed, patient blood sugar reasonably well controlled as well as blood pressure patient has no complaint of chest pain shortness of breath palpitation fever or chills. will continue to monitor patient with you if you have any question please feel free to contact us. patient is clinically stable has no complaint of chest pain shortness of breath or dizziness, pain is controlled, her blood sugar within normal limits blood pressure close to target, patient was seen surgery service clinically stable discharge home. (2) Hypertension: Qualifiers: Hypertension type: essential hypertension Qualified Code(s): I10 - Essential (primary) hypertension Code(s): I10 - Essential (primary) hypertension Status: Chronic Assessment and Plan: will continue home regimen and monitor. Subjective Date/time seen: 09/25/20 14:11 Jazmín Peñaloza is a 70 year old female with history of noninsulin dependent diabetes, obesity, hypertension, cardiomyopathy, and squamous cell carcinoma, during recent procedure patient was found to have ventral hernia and patient was seen by surgery service and was taken to OR and had her surgical repair of the hernia, we have been consulted for medical management patient diabetes hypertension and any medical issues while in the hospital, patient's home medication have been resumed, patient blood sugar reasonably well controlled as well as blood pressure patient has no complaint of chest pain shortness of breath palpitation fever or chills. will continue to monitor patient with you if you have any question please feel free to contact us. patient is clinically stable has no complaint of chest pain shortness of breath or dizziness, pain is controlled, her blood sugar within normal limits blood pressure close to target, patient was seen surgery service clinically stable discharge home. Review of Systems Review of Systems: All systems reviewed & are unremarkable except as noted in HPI and below Exam Narrative: moderately obese Patient is comfortable, NAD HEENT: eyes are clear and none icteric LUNGS: normal respiratory efforts ABD: distended Lower extremities: no edema SKIN: nonjaundiced Neuro: grossly intact normal speech. Objective Data Vital Signs Vital Signs: Vital Signs - 24 hr 09/24/20 16:00 09/24/20 20:00 09/24/20 21:56 Temperature 98.0 F 97.9 F Pulse Rate 64 81 84 Respiratory Rate 16 14 Blood Pressure 130/60 140/64 Pulse Oximetry 96 98 09/25/20 00:00 09/25/20 06:00 09/25/20 10:00 Temperature 97.6 F 97.8 F 97.5 F L Pulse Rate 74 67 68 Respiratory Rate 16 18 16 Blood Pressure 129/66 148/72 H 149/77 H Pulse Oximetry 94 97 99 Intake/Output Intake/Output: Intake & Output 09/22/20 09/23/20 09/24/20 09/25/20 23:59 23:59 23:59 23:59 Intake Total 1340 2420 840 Output Total 440 9765 1100 Balance 900 -072 -061 Meds/Results Medications: Active Medications Generic Name Dose Route Start Last Admin Trade Name Freq PRN Reason Stop Dose Admin Hydrocodone Bitart/Acetaminophen 1 tab 09/23/20 15:20 Hydrocodone/Acetaminophen (*Crx) 5-325 Mg Tablet PO Q4H PRN Pain Rated 4-6 Hydrocodone Bitart/Acetaminophen 1 tab 09/23/20 15:20 Hydrocodon
== END 2020-09-25 14:20 | disposition home or self-care (01) ==
LOC: ANHSURGERY 11:12 → ANH2MED 11:12
PROVIDERS: Admitting Provider Surgery; PCP Internal Medicine; Visit Provider Surgery
PROC: (CPT 49652; principal; 2020-09-23 09:30)
DX: K43.9 Ventral hernia without obstruction or gangrene (principal); C21.1 Malignant neoplasm of anal canal; E66.9 Obesity, unspecified; Z68.36 Body mass index [BMI] 36.0-36.9, adult; I10 Essential (primary) hypertension; E11.9 Type 2 diabetes mellitus without complications; K86.2 Cyst of pancreas; K80.20 Calculus of gallbladder without cholecystitis without obstruction; Z92.21 Personal history of antineoplastic chemotherapy; Z92.3 Personal history of irradiation; E78.5 Hyperlipidemia, unspecified; I42.9 Cardiomyopathy, unspecified; Z78.0 Asymptomatic menopausal state; Z87.891 Personal history of nicotine dependence; Z79.84 Long term (current) use of oral hypoglycemic drugs; Z79.02 Long term (current) use of antithrombotics/antiplatelets; Z79.899 Other long term (current) drug therapy
CPT/HCPCS: 49652; 36415; 80048; 82948; 83735; 85027; A9270; C1781; G0378; J0690; J1100; J1170; J1650; J1741; J1885; J2704; J2710; J3010; J7120

== ENCOUNTER 2021-01-27 10:33 | Outpatient (CLI) | payer MEDICARE, SELFPAY ==
--- NOTE | ~2021-01-27 | CT_ITS ---
EXAMINATION: CT abdomen pelvis w con EXAM DATE: 01/27/2021 11:15 INDICATION: Anal cancer. TECHNIQUE: Spiral CT of the abdomen and pelvis was performed following intravenous injection of 100 m L Omnipaque 350. Axial, coronal and sagittal images of the abdomen and pelvis were reviewed. The do se-length product (DLP) for this examination was 1261.03 mGy-cm. The exposure was tailored according to patient size (auto mA exposure control), and iterative reconstruction (ASIR) was used as addition al dose reduction technique. There is no prior study for comparison. FINDINGS: Previously seen large abdominal wall hernia containing transverse colon has been repaired. There is small postoperative seroma in this location. There is pancreatic body cystic lesion measuring 1.6 cm, another smaller one measuring 1.2 cm, and in the uncinate measuring 1.8 cm (this uncinate lesion not definitively seen on prior study). These cou ld be pseudocyst given that the pancreatic calcifications indicating history of chronic pancreatitis. The differential diagnosis includes for cystic masses includes pseudocyst, intraductal papillary mu cinous neoplasm (IPMN), mucinous cystic neoplasm (MCN), and the less common serous cystadenoma and ne uroendocrine tumor. Correlate for history of pancreatitis. The liver, spleen, adrenal glands are unremarkable. There are gallstones within an otherwise unremar kable gallbladder. No evidence of obstructive biliary disease. Portal and splenic veins are patent. Kidneys enhance symmetrically. There is no hydronephrosis. There are regions of bilateral renal co rtical scarring, with lobular renal contours bilaterally. There is 4 mm right mid calyceal stone. Po ssible fibroid uterus. The bladder is unremarkable. There is no retroperitoneal or pelvic lymphaden opathy. The appendix is normal. The stomach and small bowel are unremarkable. There is expected amount of c olonic stool. No free intraperitoneal gas. The heart is normal in size. There are no pericardial or pleural effusions. Left basilar calcified granuloma. There is moderate lumbar dextroscoliosis. IMPRESSION: 1. No evidence of metastatic disease. 2. Chronic pancreatitis with several cystic lesions, could be pseudocyst but one has developed or la rger than prior study and cystic neoplasm not excludable. Attention to this on follow-up. 3. Right nephrolithiasis. 4. Cholelithiasis. Reviewed, dictated and finalized at location A. ERY PAIRER IMPRESSION: 1. No evidence of metastatic disease. 2. Chronic pancreatitis with several cystic lesions, could be pseudocyst but o ne has developed or larger than prior study and cystic neoplasm not excludable. Attention to this on follow-up. 3. Right nephrolithiasis. 4. Cholelithiasis.
[2021-01-27 11:07] LABS: Estimated Glomerular Filt Rate 37
== END 2021-01-27 10:34 | disposition home or self-care (01) ==
LOC: ANHIMG 10:38
PROVIDERS: PCP Internal Medicine; Visit Provider Internal Medicine Hematology & Oncology
DX: C21.0 Malignant neoplasm of anus, unspecified (principal); K85.90 Acute pancreatitis without necrosis or infection, unspecified; M41.9 Scoliosis, unspecified; K80.20 Calculus of gallbladder without cholecystitis without obstruction
CPT/HCPCS: 74177; Q9967

== ENCOUNTER 2021-02-03 13:02 | Outpatient (CLI) | payer MEDICARE, SELFPAY ==
--- NOTE | ~2021-02-03 | DEXA_ITS ---
Bone Density Report Name: ELIZABETH JAMES Age: 70 Sex: Female Ethnicity: White Date of : 1950 Indication: postmenopausal; height loss; cancer; Referring Provider: Aylin Reid Study: Bone densitometry was performed. Exam Date: February 03, 2021 Accession number: [id number] Bone Density: Region BMD T-score Z-score Classification AP Spine (L1, L2) 1.145 1.5 3.7 Normal Femoral Neck (Left) 0.665 -1.7 0.3 Osteopenia Total Hip (Left) 1.043 0.8 2.5 Normal Total Hip Bilateral Avg 1.008 0.6 2.2 Normal Femoral Neck (Right) 0.690 -1.4 0.5 Osteopenia Total Hip (Right) 0.973 0.3 1.9 Normal World Health Organization criteria for BMD impression classify patients as: Normal (T-score at or above -1.0), Osteopenia (T-score between -1.0 and -2.5), or Osteoporosis (T-score at or below -2.5). 10-year Fracture Risk(1): Major Osteoporotic Fracture 10.0% Hip Fracture 1.7% Reported Risk Factors: [place] (), Neck BMD=0.665, BMI=38.3 (1) FRAX(R) Version 3.08. Fracture probability calculated for an untreated patient. Fracture probability may be lower if the patient has received treatment. Clinical Information Provided by Patient: Has used the following medications: Vitamin D, Calcium Has the following medical conditions: Cancer Patient maximum height was 68 Menopause Age: 50 Onset of menses at age 11 Number of children 3 Impression: The patient has low bone mass, based on the Left Femoral Neck T-score. The patient has an estimated ten-year risk of hip fracture of 1.7% and an estimated ten-year risk of major fracture of 10%, based on the WHO FRAX algorithm. Discussion: BONE DENSITY IS LOW AT ONE OR MORE SKELETAL SITES. This patient's lowest T-score is low at one or more skeletal sites. It meets the World Health Organization's (WHO) criteria for ?low bone mass? (T-score between -1.0 and -2.5). The patient's 10-year risk of fracture as calculated by FRAX is less than the threshold where pharmacological therapy is recommended by the National Osteoporosis Foundation (NOF). However, all treatment decisions require clinical judgment and consideration of individual patient factors, including patient preferences, comorbidities, previous drug use, risk factors not captured in the FRAX model (e.g., frailty, falls, vitamin D deficiency, increased bone turnover, interval significant decline in bone density) and possible under or overestimation of fracture risk by FRAX. The patient should follow a healthful lifestyle (good nutrition with adequate calcium and vitamin D, and appropriate weight-bearing exercise). Follow-Up: Consider repeating this study in 2 to 3 years to reassess this patient's status, or sooner if there is some new clinical indication. Reported by: MARIKA on 02/03/2021 1:46:00 PM.
--- NOTE | ~2021-02-03 | MM_ITS ---
EXAMINATION: MM screening leo BI w adrienne HISTORY: Screening mammogram TECHNIQUE: Craniocaudal and mediolateral oblique 3-D tomosynthesis images were obtained and synthetic 2-D images were generated. CAD analysis was submitted and interpreted. COMPARISON: 12/05/2014, 11/18/2013, 11/07/2012 bilateral screening mammogram examinations BREAST PARENCHYMAL COMPOSITION: There are scattered areas of fibroglandular density. FINDINGS: There is no evidence of suspicious mass, calcification, or architectural distortion to sugg est malignancy in either breast. There has been no suspicious interval change. IMPRESSION: 1. No mammographic evidence of malignancy. 2. Recommend routine screening mammography in one year. BI-RADS Category 1: Negative Reviewed, dictated and finalized at location A. MECHANIC
== END 2021-02-03 13:03 | disposition home or self-care (01) ==
LOC: ANHIMG 13:03
PROVIDERS: PCP Internal Medicine; Visit Provider Nurse Practitioner
DX: Z12.31 Encounter for screening mammogram for malignant neoplasm of breast (principal); Z78.0 Asymptomatic menopausal state; M85.852 Other specified disorders of bone density and structure, left thigh; M85.851 Other specified disorders of bone density and structure, right thigh
CPT/HCPCS: 36415; 77063; 77067; 77080; 80053; 85025

== ENCOUNTER 2021-03-29 00:15 | Day surgery (SDC) | payer MEDICARE, SELFPAY ==
[2021-03-16 14:12] VITALS: BMI 34.5
[2021-03-29 09:06] VITALS: BP 161/90; PULSE 80; RESP 20; TEMP 35.7; O2SAT 99
--- NOTE | 2021-03-29 09:18 | SUR.PREOP ---
requesting full colonoscopy. Call and spoke to Maritza in the office- states no pre cert required. Okay to proceed.
[2021-03-29] MEDS: LACTATED RINGERS 1,000 ML 150 ML IV CONT (09:21)
--- NOTE | 2021-03-29 09:22 | WPDANESEPPF ---
Anes - Initial Pre Proc Eval Procedure: Operation Date: 03/29/21 10:00 Proposed Procedures p Colonoscopy - Nam Santos MD Date/Time: 03/29/21 09:22 Surgeon: Nam Santos MD Pre Op Diagnosis: anal ca Patient Data Age: 71 Gender: F Height: 1.7 m Weight: 103.6 kg Last Vital Signs Temp 35.7 C L 03/29/21 09:06 Pulse 80 03/29/21 09:06 Resp 20 03/29/21 09:06 BP 161/90 H 03/29/21 09:06 Pulse Ox 99 03/29/21 09:06 Allergies Allergy/AdvReac Type Severity Reaction Status Date / Time No Known Allergies Allergy Mild Verified 03/29/21 09:04 Home Medications Medication Instructions Recorded Confirmed Type fluocinonide 0.05 % topical cream 1 applic TOPICAL BID PRN 09/14/20 03/29/21 History metoprolol succinate 12.5 mg PO HS 09/17/20 03/29/21 History atorvastatin 10 mg tablet See Rx Instructions .ROUTE 10/28/20 03/29/21 Rx .COMPLEX #90 tablet furosemide 40 mg tablet See Rx Instructions .ROUTE 10/28/20 03/29/21 Rx .COMPLEX #90 tablet glimepiride 2 mg tablet See Rx Instructions .ROUTE 10/28/20 03/29/21 Rx .COMPLEX #135 tablet irbesartan 300 mg tablet 300 mg PO DAILY #90 tablet 10/28/20 03/29/21 Rx metformin 1,000 mg tablet See Rx Instructions .ROUTE 10/28/20 03/29/21 Rx .COMPLEX #180 tablet empagliflozin 10 mg tablet See Rx Instructions .ROUTE 01/21/21 03/29/21 Rx .COMPLEX #90 tablet potassium chloride 10 mEq 10 meq PO DAILY #90 tablet 01/25/21 03/29/21 Rx tablet,extended release Patient hx anesthesia problems: none Family hx anesthesia problems: none Results Review: All pre-operative results and documents have been reviewed as part of the pre-operative evaluation. [facility] Past Medical History Medical History Benign essential hypertension Cardiomyopathy no echo on the chart Hyperlipidemia Hypertension Postmenopausal Screening for breast cancer Screening for colon cancer Surgical History Surgical History H/O ventral hernia repair 09/23/20 Laparoscopic repair of large ventral hernia with 20 x 25 cm Symbotex mesh History of right knee joint replacement Hx of colonoscopy unable to complete due to transverse colon in a hernia Family History Family History Mother Family history of elevated blood lipids Father Family history of diabetes mellitus in first degree relative Family history of coronary artery disease Cerebrovascular accident Family history of Alzheimer's disease Sibling Hodgkin disease Other Diabetes mellitus Family history of hypercholesterolemia Social History Social History Smoking packs per day: 0.5 Smoking cigarettes per day: 10.0 Years smoked: 3 Smoking pack-years: 1.50 Smoking status: Former smoker Tobacco type: cigarettes Second hand tobacco smoke exposure: Yes Smoking end date: 02/20/71 Additional smoking assessment comments: smoked only socially Alcohol intake: never Alcohol use details: 3 times per year Substance use: never Substance use type: does not use Living arrangements: with family Gender identity (if verbalized by the patient): Female Sexual Orientation (if Verbalized by the Patient): Straight or Heterosexual Spiritual care concerns: Yes ([employer]) Anes - Eval Final PreProcedure Day of Procedure 03/29/21 09:22 Patient weight: obese Heart: regular rate and rhythm Lungs: clear to auscultation and normal air movement Airway: Mallampati scale class II Neurological: alert and oriented Last oral intake: >/= 8 hours ASA classification: III Emergent: no Anesthetic plan: proceed Anesthesia type and monitoring: general GIVS and standard monitoring Results Review: All pre-operative results and documents have been reviewed as part of the pre-operative evaluation.
--- NOTE | 2021-03-29 09:27 | WPDGICN ---
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 His anal cancer identified [address] Garza. She is now status post treatment by Dr. Mon Oncology. Surveillance is advised at this time. (2) Screening for colon cancer: Code(s): Z12.11 - Encounter for screening for malignant neoplasm of colon Status: Acute Assessment and Plan: Patient's previous colonoscopy was limited because of her hernia. Repeat attempted colonoscopy will be performed today. GI Consult Note Consult date/time: 03/29/21 09:27 HPI: Jazmín Peñaloza is a 71 year old female Presents for colonoscopy. Patient reports that she underwent a colonoscopy by Dr. Garza in May of 2020. This identified an anal carcinoma. The colonoscopy itself was unable to be completed apparently because of a hernia. Patient presents today to complete her colonoscopy. Also to assess anal area after treatment by Oncology service. Patient currently feels well. She reports her weight appetite bowel movements are normal. Surveillance exam of the anus as requested by Oncology Service. Review of Systems Review of Systems: All systems reviewed & are unremarkable except as noted in HPI and below PMFSH Past Medical History Medical History Benign essential hypertension Cardiomyopathy no echo on the chart Hyperlipidemia Hypertension Postmenopausal Screening for breast cancer Screening for colon cancer Surgical History Surgical History H/O ventral hernia repair 09/23/20 Laparoscopic repair of large ventral hernia with 20 x 25 cm Symbotex mesh History of right knee joint replacement Hx of colonoscopy unable to complete due to transverse colon in a hernia Family History Family History Mother Family history of elevated blood lipids Father Family history of diabetes mellitus in first degree relative Family history of coronary artery disease Cerebrovascular accident Family history of Alzheimer's disease Sibling Hodgkin disease Other Diabetes mellitus Family history of hypercholesterolemia Social History Social History Smoking packs per day: 0.5 Smoking cigarettes per day: 10.0 Years smoked: 3 Smoking pack-years: 1.50 Smoking status: Former smoker Tobacco type: cigarettes Second hand tobacco smoke exposure: Yes Smoking end date: 02/20/71 Additional smoking assessment comments: smoked only socially Alcohol intake: never Alcohol use details: 3 times per year Substance use: never Substance use type: does not use Living arrangements: with family Gender identity (if verbalized by the patient): Female Sexual Orientation (if Verbalized by the Patient): Straight or Heterosexual Spiritual care concerns: Yes ([employer]) Meds Home Medications and Allergies Home Medications Medication Instructions Recorded Confirmed Type fluocinonide 0.05 % topical cream 1 applic TOPICAL BID PRN 09/14/20 03/29/21 History metoprolol succinate 12.5 mg PO HS 09/17/20 03/29/21 History atorvastatin 10 mg tablet See Rx Instructions .ROUTE 10/28/20 03/29/21 Rx .COMPLEX #90 tablet furosemide 40 mg tablet See Rx Instructions .ROUTE 10/28/20 03/29/21 Rx .COMPLEX #90 tablet glimepiride 2 mg tablet See Rx Instructions .ROUTE 10/28/20 03/29/21 Rx .COMPLEX #135 tablet irbesartan 300 mg tablet 300 mg PO DAILY #90 tablet 10/28/20 03/29/21 Rx metformin 1,000 mg tablet See Rx Instructions .ROUTE 10/28/20 03/29/21 Rx .COMPLEX #180 tablet empagliflozin 10 mg tablet See Rx Instructions .ROUTE 01/21/21 03/29/21 Rx
[2021-03-29 09:30] LABS: Glucose Point of Care 114 mg/dl (65-105)
[2021-03-29 09:57] VITALS: BP 88/54; PULSE 65; RESP 18; O2SAT 96
[2021-03-29 10:07] VITALS: BP 94/68; PULSE 73; RESP 26; O2SAT 97
[2021-03-29 10:17] VITALS: BP 128/82; PULSE 69; RESP 22; O2SAT 99
== END 2021-03-29 10:26 | disposition home or self-care (01) ==
PROVIDERS: PCP Internal Medicine; Visit Provider Internal Medicine Gastroenterology
PROC: 0DJD8ZZ Inspection of Lower Intestinal Tract, Via Natural or Artificial Opening Endoscopic (ICD-10-PCS; CPT 45378; principal; 2021-03-29 10:00)
DX: Z12.11 Encounter for screening for malignant neoplasm of colon (principal); K62.6 Ulcer of anus and rectum; Z85.048 Personal history of other malignant neoplasm of rectum, rectosigmoid junction, and anus; I10 Essential (primary) hypertension; E78.5 Hyperlipidemia, unspecified; I42.9 Cardiomyopathy, unspecified; Z79.84 Long term (current) use of oral hypoglycemic drugs; E66.9 Obesity, unspecified; Z68.35 Body mass index [BMI] 35.0-35.9, adult
CPT/HCPCS: 45380; 82948; 88305; J2704; J7120

== ENCOUNTER 2022-05-09 02:36 | Day surgery (SDC) | payer MEDICARE, SELFPAY ==
[2022-04-27 12:10] VITALS: BMI 36.1
[2022-05-09 09:49] VITALS: BP 165/80; PULSE 92; RESP 17; TEMP 36; O2SAT 100; BMI 36.4
[2022-05-09 09:58] LABS: Glucose Point of Care 127 mg/dl (65-105)
[2022-05-09] MEDS: LACTATED RINGERS 1,000 ML 150 ML IV CONT (10:02)
--- NOTE | 2022-05-09 10:15 | PM.HPGS ---
History of Present Illness History of Present Illness Consent: Risks, benefits, and alternatives have been discussed and questions answered. Patient agrees to proceed with procedure. Chief complaint: hx malignant neoplasm rectum/rectosigmoid junction Narrative: Jazmín Peñaloza is a 72 year old female Presents for colonoscopy. Patient has a history of ano-rectal mass resected 2020. Patient presents today for follow-up colonoscopy. Patient reports her current weight appetite and bowel movements are normal. Patient denies abdominal pain. She has had no bleeding. Family history noncontributory. Review of Systems Review of Systems: Review of systems noncontributory. [facility] Past Medical History Medical History Benign essential hypertension Cardiomyopathy no echo on the chart Hyperlipidemia Hypertension Postmenopausal Screening for breast cancer Screening for colon cancer Surgical History Surgical History H/O ventral hernia repair 09/23/20 Laparoscopic repair of large ventral hernia with 20 x 25 cm Symbotex mesh History of right knee joint replacement Hx of colonoscopy unable to complete due to transverse colon in a hernia Family History Family History Mother Family history of elevated blood lipids Father Family history of diabetes mellitus in first degree relative Family history of coronary artery disease Cerebrovascular accident Family history of Alzheimer's disease Sibling Hodgkin disease Other Diabetes mellitus Family history of hypercholesterolemia Social History Social History Smoking packs per day: 0.5 Smoking cigarettes per day: 10.0 Years smoked: 3 Smoking pack-years: 1.50 Smoking status: Former smoker Tobacco type: cigarettes Second hand tobacco smoke exposure: Yes Smoking end date: 02/20/71 Additional smoking assessment comments: smoked only socially Alcohol intake: current Alcohol use details: 3 times per year Substance use: never Substance use type: does not use Living arrangements: with family Occupation/Education: retired Gender identity (if verbalized by the patient): Female Sexual Orientation (if Verbalized by the Patient): Straight or Heterosexual 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) Meds Home Medications and Allergies Home Medications Medication Instructions Recorded Confirmed Type potassium chloride 10 mEq 10 meq PO DAILY #90 tabs 01/10/22 05/09/22 Rx tablet,extended release metoprolol succinate 25 mg 12.5 mg PO HS take 1/2 tab daily 01/25/22 05/09/22 Rx tablet,extended release 24 hr #45 tabs empagliflozin 10 mg tablet See Rx Instructions .Route 03/15/22 05/09/22 Rx (Jardiance) .COMPLEX #180 tabs mometasone 0.1 % topical cream 1 applic topical DAILY PRN Itching 03/31/22 05/09/22 History atorvastatin 10 mg tablet See Rx Instructions .Route 04/22/22 05/09/22 Rx .COMPLEX #90 tabs irbesartan 300 mg tablet 300 mg PO DAILY #90 tabs 04/22/22 05/09/22 Rx furosemide 40 mg tablet See Rx Instructions .Route 04/26/22 05/09/22 Rx .COMPLEX #90 tabs glimepiride 2 mg tablet See Rx Instructions .Route 04/26/22 05/09/22 Rx .COMPLEX #135 tabs metformin 1,000 mg tablet See Rx Instructions .Route 04/26/22 05/09/22 Rx .COMPLEX #180 tabs doxycycline hyclate 100 mg capsule 100 mg PO BID 04/27/22 05/09/22 History (Vibramycin) Allergies Allergy/AdvReac Type Severity Reaction Status Date / Time No Known Allergies Allergy Mild Verified 05/09/22 09:47 Vital Signs Vital Signs - 24 hr 05/09/22 09:49 Temperature 96.8 F L Pulse Rate 92 Respiratory Rate 17 Blood Pressure 165/80 H Pulse Oximetry 100 Oxygen Delivery Room Air Exam Narrative: Physical exam reveals patient to be alert. Vital signs stable.
--- NOTE | 2022-05-09 10:44 | WPDANESEPPF ---
Anes - Initial Pre Proc Eval Procedure: Operation Date: 05/09/22 11:00 Proposed Procedures p Colonoscopy - Nam Santos MD Date/Time: 05/09/22 10:44 Surgeon: Nam Santos MD Pre Op Diagnosis: hx malignant neoplasm rectum/rectosigmoid junction Patient Data Age: 72 Gender: F Height: 1.7 m Weight: 105.5 kg Last Vital Signs Temp 96.8 F L 05/09/22 09:49 Pulse 92 05/09/22 09:49 Resp 17 05/09/22 09:49 BP 165/80 H 05/09/22 09:49 Pulse Ox 100 05/09/22 09:49 O2 Del Method Room Air 05/09/22 09:49 Allergies Allergy/AdvReac Type Severity Reaction Status Date / Time No Known Allergies Allergy Mild Verified 05/09/22 09:47 Home Medications Medication Instructions Recorded Confirmed Type potassium chloride 10 mEq 10 meq PO DAILY #90 tabs 01/10/22 05/09/22 Rx tablet,extended release metoprolol succinate 25 mg 12.5 mg PO HS take 1/2 tab daily 01/25/22 05/09/22 Rx tablet,extended release 24 hr #45 tabs empagliflozin 10 mg tablet See Rx Instructions .Route 03/15/22 05/09/22 Rx (Jardiance) .COMPLEX #180 tabs mometasone 0.1 % topical cream 1 applic topical DAILY PRN Itching 03/31/22 05/09/22 History atorvastatin 10 mg tablet See Rx Instructions .Route 04/22/22 05/09/22 Rx .COMPLEX #90 tabs irbesartan 300 mg tablet 300 mg PO DAILY #90 tabs 04/22/22 05/09/22 Rx furosemide 40 mg tablet See Rx Instructions .Route 04/26/22 05/09/22 Rx .COMPLEX #90 tabs glimepiride 2 mg tablet See Rx Instructions .Route 04/26/22 05/09/22 Rx .COMPLEX #135 tabs metformin 1,000 mg tablet See Rx Instructions .Route 04/26/22 05/09/22 Rx .COMPLEX #180 tabs doxycycline hyclate 100 mg capsule 100 mg PO BID 04/27/22 05/09/22 History (Vibramycin) Laboratory Tests 05/09/22 09:55 POC Capillary Glucose 127 mg/dl H mg/dl (65-105) Patient hx anesthesia problems: none Family hx anesthesia problems: none Results Review: All pre-operative results and documents have been reviewed as part of the pre-operative evaluation. [facility] Past Medical History Medical History Benign essential hypertension Cardiomyopathy no echo on the chart Hyperlipidemia Hypertension Postmenopausal Screening for breast cancer Screening for colon cancer Surgical History Surgical History H/O ventral hernia repair 09/23/20 Laparoscopic repair of large ventral hernia with 20 x 25 cm Symbotex mesh History of right knee joint replacement Hx of colonoscopy unable to complete due to transverse colon in a hernia Family History Family History Mother Family history of elevated blood lipids Father Family history of diabetes mellitus in first degree relative Family history of coronary artery disease Cerebrovascular accident Family history of Alzheimer's disease Sibling Hodgkin disease Other Diabetes mellitus Family history of hypercholesterolemia Social History Social History Smoking packs per day: 0.5 Smoking cigarettes per day: 10.0 Years smoked: 3 Smoking pack-years: 1.50 Smoking status: Former smoker Tobacco type: cigarettes Second hand tobacco smoke exposure: Yes Smoking end date: 02/20/71 Additional smoking assessment comments: smoked only socially Alcohol intake: current Alcohol use details: 3 times per year Substance use: never Substance use type: does not use Living arrangements: with family Occupation/Education: retired Gender identity (if verbalized by the patient): Female Sexual Orientation (if Verbalized by the Patient): Straight or Heterosexual Spiritual care concerns: Yes (Gnosticist) Anes - Eval Final PreProcedure Day of Procedure 05/09/22 10:44 Patient weight: normal Heart: regular rate and rhythm Lungs: clear to auscultation Airwa
[2022-05-09 11:11] VITALS: BP 107/65; PULSE 66; RESP 20; O2SAT 95
[2022-05-09 11:21] VITALS: BP 132/92; PULSE 76; RESP 20; O2SAT 98
[2022-05-09 11:31] VITALS: BP 152/85; PULSE 75; RESP 20; O2SAT 98
== END 2022-05-09 11:38 | disposition home or self-care (01) ==
PROVIDERS: PCP Internal Medicine; Visit Provider Internal Medicine Gastroenterology
PROC: 0DJD8ZZ Inspection of Lower Intestinal Tract, Via Natural or Artificial Opening Endoscopic (ICD-10-PCS; CPT 45378; principal; 2022-05-09 11:00)
DX: Z12.11 Encounter for screening for malignant neoplasm of colon (principal); Z85.048 Personal history of other malignant neoplasm of rectum, rectosigmoid junction, and anus; I10 Essential (primary) hypertension; I42.9 Cardiomyopathy, unspecified; E78.5 Hyperlipidemia, unspecified; Z87.891 Personal history of nicotine dependence; Z79.84 Long term (current) use of oral hypoglycemic drugs
CPT/HCPCS: G0105; 82948; J2704; J7120

== ENCOUNTER 2022-06-08 09:43 | Outpatient (CLI) | payer MEDICARE, SELFPAY ==
--- NOTE | ~2022-06-08 | MM_ITS ---
EXAMINATION: MM screening [facility] BI w adrienne HISTORY: Screening mammogram TECHNIQUE: Craniocaudal and mediolateral oblique 3-D tomosynthesis images were obtained and synthetic 2-D images were generated. CAD analysis was submitted and interpreted. COMPARISON: 02/03/2021, 12/05/2014, 11/18/2013 BREAST PARENCHYMAL COMPOSITION: There are scattered areas of fibroglandular density. FINDINGS: No suspicious mass, calcification, or architectural distortion are identified in either heladio ast to suggest malignancy. There has been no suspicious interval change. IMPRESSION: 1. No mammographic evidence of malignancy. 2. Recommend routine screening mammography in one year. BI-RADS Category 1: Negative Reviewed, dictated and finalized at location A.
== END 2022-06-08 09:44 | disposition home or self-care (01) ==
PROVIDERS: PCP Internal Medicine; Visit Provider Nurse Practitioner
DX: Z12.31 Encounter for screening mammogram for malignant neoplasm of breast (principal)
CPT/HCPCS: 77063; 77067

== ENCOUNTER 2022-07-06 08:51 | Outpatient (CLI) | payer MEDICARE, SELFPAY ==
--- NOTE | ~2022-07-06 | CT_ITS ---
EXAMINATION: CT abdomen pelvis w con DATE: 07/06/2022 09:19 INDICATION: Anal cancer TECHNIQUE: Computed tomography (CT) of the abdomen and pelvis was performed with 100 cc Omnipaque 350 intravenous contrast. The dose-length product was 1205.37 mGy-cm. Automated exposure control and ite rative reconstruction technique were employed. COMPARISON: CT dated 01/27/2021 FINDINGS: There is dependent atelectasis. There is calcified granuloma left lower lobe. Heart size no rmal. No significant pleural or pericardial effusion. Fatty infiltration of the liver. There are gallstones. The spleen, adrenal glands and left kidney are unremarkable. There is nonobstructing right renal stone. There are punctate pancreatic calcification s, suspicious for chronic pancreatitis. There are multiple small pancreatic cysts, unchanged from laure or examinations allowing for differences of technique. There is an accessory splenule in the left upp er abdomen. No significant vascular abnormality. No lymphadenopathy. There likely changes of umbilica l hernia repair with fluid at the umbilicus, possibly postoperative seroma. Nonobstructive bowel sonya krys. Normal appendix. Bladder wall is mildly prominent, although not well distended. There is severe lower thoracic and lumbar spondylosis with dextroscoliosis. No focal lytic or blastic lesions. IMPRESSION: 1. No evidence for recurrent malignancy or metastatic disease. 2: Probable chronic pancreatitis with multiple small cysts unchanged, most likely benign pseudocyst. The differential diagnosis includes intraductal papillary mucinous neoplasm (IPMN), mucinous cystic neoplasm (MCN), and the less common serous cystadenoma and neuroendocrine tumor. 3: Cholelithiasis. 4: Nonobstructing right nephrolithiasis. Reviewed, dictated and finalized at location B. IMPRESSION: 1. No evidence for recurrent malignancy or metastatic disease. 2: Probable chronic pancreatitis with multiple small cysts unchanged, most lik юлия benign pseudocyst. The differential diagnosis includes intraductal papillar y mucinous neoplasm (IPMN), mucinous cystic neoplasm (MCN), and the less common serous cystadenoma and neuroendocrine tumor. 3: Cholelithiasis. 4: Nonobstructing right nephrolithiasis.
[2022-07-06 09:14] LABS: Estimated Glomerular Filt Rate 40
== END 2022-07-06 08:52 | disposition home or self-care (01) ==
PROVIDERS: PCP Family Medicine; Visit Provider Internal Medicine Hematology & Oncology
DX: C21.0 Malignant neoplasm of anus, unspecified (principal); K80.20 Calculus of gallbladder without cholecystitis without obstruction; N20.0 Calculus of kidney
CPT/HCPCS: 74177; Q9967

== ENCOUNTER 2022-10-26 08:55 | Outpatient (CLI) | payer MEDICARE, SELFPAY ==
--- NOTE | ~2022-10-26 | XR_ITS ---
EXAM: XR shoulder LT min 2V DATE: 10/26/2022 09:18 HISTORY: M25.512 - Pain in left shoulder, NO INJURY, LIMITED ROM . COMPARISON: None available. FINDINGS: Decreased mineralization. No fracture or dislocation. No lytic or blastic lesion. Moderate AC joint and severe glenohumeral joint degenerative change. Subacromial narrowing. No erosion or per iosteal change. Soft tissues within normal limits. IMPRESSION: Moderate AC joint and severe glenohumeral joint osteoarthritis. Rotator cuff pathology. Reviewed, dictated and finalized at location K. IMPRESSION: Moderate AC joint and severe glenohumeral joint osteoarthritis. Rot ator cuff pathology.
== END 2022-10-26 08:56 | disposition home or self-care (01) ==
PROVIDERS: PCP Family Medicine; Visit Provider Nurse Practitioner Family
DX: M19.012 Primary osteoarthritis, left shoulder (principal)
CPT/HCPCS: 73030

== ENCOUNTER 2022-11-17 09:50 | Outpatient (CLI) | payer MEDICARE, SELFPAY ==
--- NOTE | ~2022-11-17 | MR_ITS ---
EXAMINATION: MR shoulder LT wo con DATE: 11/17/2022 10:29 INDICATION: Left shoulder pain. TECHNIQUE: Magnetic resonance imaging (MRI) of the left shoulder was performed without intravenous co ntrast. Sequences included axial PD-weighted FS FSE, coronal oblique PD-weighted FS FSE and T2-weight ed FS FSE, and sagittal oblique T2-weighted FS FSE and T1-weighted FSE. COMPARISON: Left shoulder radiographs 10/26/2022 FINDINGS: Coracoacromial arch: The acromion undersurface is curved in morphology (type II). There is moderate acromioclavicular join t osteoarthritis. There is severe subacromial/subdeltoid bursitis. Rotator cuff: There is severe supraspinatus and infraspinatus tendinopathy. There is an articular-sided, partial-th ickness tear of supraspinatus and infraspinatus tendons measuring 14 mm anterior to posterior by 30 m m proximal to distal by 60% tendon thickness. Teres minor tendon is normal. There is mild subscapular is tendinopathy. There is no asymmetric fatty atrophy of the rotator cuff muscle bellies. Biceps tendon and glenoid labrum: Biceps tendon is in bicipital groove. There is a partial tear of biceps tendon. There is widespread t earing of the glenoid labrum. Fluid: There is a small glenohumeral joint effusion. Bones/cartilage: There is advanced glenohumeral joint osteoarthritis including bone volume loss of the glenoid. IMPRESSION: 1. Advanced glenohumeral joint osteoarthritis. 2. Moderate acromioclavicular joint osteoarthritis. 3. Articular-sided, partial-thickness tear of supraspinatus and infraspinatus tendons. 4. Small glenohumeral joint effusion. 5. Partial tear of proximal biceps tendon. 6. Severe subacromial/subdeltoid bursitis. Reviewed, dictated and finalized at location E. IMPRESSION: 1. Advanced glenohumeral joint osteoarthritis. 2. Moderate acromioclavicular joint osteoarthritis. 3. Articular-sided, partial-thickness tear of supraspinatus and infraspinatus t endons. 4. Small glenohumeral joint effusion. 5. Partial tear of proximal biceps tendon. 6. Severe subacromial/subdeltoid bursitis.
== END 2022-11-17 09:51 | disposition home or self-care (01) ==
PROVIDERS: PCP Family Medicine; Visit Provider Nurse Practitioner Family
DX: M25.512 Pain in left shoulder (principal); R93.89 Abnormal findings on diagnostic imaging of other specified body structures
CPT/HCPCS: 73221

== ENCOUNTER 2022-12-21 08:25 | Outpatient (CLI) | payer MEDICARE, SELFPAY ==
[2022-12-21 08:45] LABS: Basophils Percent Auto 0.6 % (0.2-1.2); Eosinophils Absolute Auto 0.2 K/mm3 (0-0.3); Eosinophils Percent Auto 3.5 % (0-4.4); Hematocrit 43.8 % (37.0-47.0); Hemoglobin 13.6 g/dL (12.0-15.0); Immature Granulocyte Absolute 0.05 K/mm3 (0.00-0.031); Immature Granulocyte Percent A 0.8 % (0-0.5); Lymphocytes Absolute Auto 1.12 K/mm3 (0.9-3.2); Lymphocytes Percent Auto 16.9 % (18.3-44.2); Mean Corpuscular HGB Conc 31.1 g/dl (32-36); Mean Corpuscular Hemoglobin 28.2 pg (26-34); Mean Corpuscular Volume 90.9 fl (80-100); Mean Platelet Volume 9.4 fl (7.4-10.4); Monocytes Absolute Auto 0.7 K/mm3 (0.1-0.6); Neutrophils Absolute Auto 4.5 K/mm3 (1.3-6.7); Neutrophils Percent Auto 68.2 % (45.5-73.1); Platelet Count Result 275 k/mm3 (150-375); Red Blood Count 4.82 M/mm3 (4.2-5.4); Red Cell Distribution Width 15.2 % (11.5-14.5); White Blood Count 6.6 K/mm3 (4.5-10.0)
[2022-12-21 09:47] LABS: Alanine Aminotransferase 29 U/L (6-35); Albumin Level 4.4 g/dL (3.5-5.1); Alkaline Phosphatase 138 U/L (38-126); Anion Gap 7 mmol/L (8-16); Aspartate Amino Transferase 28 U/L (14-36); Bilirubin,Total 0.8 mg/dL (0.2-1.3); Blood Urea Nitrogen 28 mg/dL (7-17); Calcium 10.1 mg/dL (8.4-10.2); Carbon Dioxide 31 mmol/L (22-30); Chloride 98 mmol/L (98-107); Estimated Glomerular Filt Rate 40; Glucose 143 mg/dL (65-110); Sodium 136 mmol/L (137-145)
== END 2022-12-21 08:26 | disposition home or self-care (01) ==
PROVIDERS: PCP Family Medicine; Visit Provider Internal Medicine Hematology & Oncology
DX: C21.0 Malignant neoplasm of anus, unspecified (principal)
CPT/HCPCS: 36415; 80053; 85025

== ENCOUNTER 2023-11-14 09:51 | Outpatient (CLI) | payer MEDICARE, SELFPAY ==
--- NOTE | 2023-11-14 09:55 | ECHO_ITS ---
Patient Info Name: Jazmín Peñaloza Age: 73 years : 1950 Gender: Female Ht: 67 in Wt: 216 lbs BSA: 2.19 m2 HR: 75 bpm BP: 116 / 83 mmHg Technical Quality: Fair Exam Date: 11/14/2023 10:03 AM Exam Location: Echo Lab Patient Status: Outpatient Admit Date: 11/14/2023 Staff Ordering Physician: Jonnie Barrow MD Sql Architect: Madhuri Dubois RDCS Attending Provider: Jonnie Barrow MD Referring Physician: Danial BALBUENA; Exam Type: CA echo doppler color flow Study Info Indications I10 - Essential (primary) hypertension Complete two-dimensional, color flow and Doppler transthoracic echocardiogram is performed. Strain analysis performed. Summary 1. Complete two-dimensional, color flow and Doppler transthoracic echocardiogram is performed. 2. Left ventricular chamber dimension is normal. 3. Left ventricular systolic function is normal, estimated at 60-65%. 4. The left ventricular diastolic function is grade I diastolic dysfunction. 5. E/e' 7 is not elevated. 6. Global longitudinal strain is slightly abnormal at -16.8%. 7. There is moderate aortic valve sclerosis. 8. There is mild aortic valve stenosis with a peak velocity of 204 cm/s, mean gradient of 9 mmHg, and aortic valve area of 1.9 cm2. 9. There is mild aortic valve regurgitation. 10. No pulmonary hypertension, estimated pulmonary arterial systolic pressure is 22 mmHg. Left Ventricle E/e' 7 is not elevated. Global longitudinal strain is slightly abnormal at -16.8%. Left ventricular chamber dimension is normal. Left ventricular systolic function is normal, estimated at 60-65%. The left ventricular diastolic function is grade I diastolic dysfunction. Right Ventricle Right ventricular chamber dimension is normal. Right ventricular systolic function is normal. Left Atria Left atrial chamber dimension is normal. Right Atria Right atrial chamber dimension is normal. Aortic Valve The aortic valve is trileaflet. There is moderate aortic valve sclerosis. There is mild aortic valve stenosis with a peak velocity of 204 cm/s, mean gradient of 9 mmHg, and aortic valve area of 1.9 cm2. There is mild aortic valve regurgitation. Pulmonic Valve There is no pulmonic regurgitation. Mitral Valve There is no mitral valve stenosis. There is no mitral valve regurgitation. Tricuspid Valve There is no tricuspid valve regurgitation. No pulmonary hypertension, estimated pulmonary arterial systolic pressure is 22 mmHg. Pericardium/Pleural There is no pericardial effusion. Inferior Vena Cava Normal inferior vena cava with >50% collapse upon inspiration consistent with normal right atrial pressure, 5 mmHg. Aorta The aortic root size at the sinus of Valsalva is normal. Left Ventricular Outflow Tract Name Value Normal LVOT 2D LVOT Diameter 2.0 cm LVOT Doppler LVOT Peak Gradient 6 mmHg LVOT Mean Gradient 4 mmHg LVOT VTI 27 cm LVOT VTI/AV VTI Ratio 0.6 LVOT Stroke Volume 81 ml LVOT CO 5.5 l/min LVOT CI 2.5 l/min/m2 Pulmonic Valve --
== END 2023-11-14 09:52 | disposition home or self-care (01) ==
PROVIDERS: PCP Family Medicine; Visit Provider Family Medicine
DX: R01.1 Cardiac murmur, unspecified (principal); I10 Essential (primary) hypertension; I36.1 Nonrheumatic tricuspid (valve) insufficiency; I35.0 Nonrheumatic aortic (valve) stenosis
CPT/HCPCS: 93306

== ENCOUNTER 2024-04-16 07:58 | Outpatient (CLI) | payer MEDICARE, SELFPAY ==
--- NOTE | ~2024-04-16 | DEXA_ITS ---
Bone Density Report Name: ELIZABETH JAMES Age: 74 Sex: Female Ethnicity: White Date of : 1950 Indication: postmenopausal; screening for osteoporosis; height loss; Referring Provider: JESICA VALENTINE Study: Bone densitometry was performed. Exam Date: April 16, 2024 Accession number: [id number] Bone Density: Region BMD T-score Z-score Classification AP Spine(L1-L4) 1.173 1.1 3.6 Normal Femoral Neck (Left) 0.658 -1.7 0.4 Osteopenia Total Hip (Left) 1.003 0.5 2.3 Normal Femoral Neck (Right) 0.696 -1.4 0.8 Osteopenia Total Hip (Right) 0.949 0.1 1.9 Normal Total Hip Mean 0.976 0.3 2.1 Normal World Health Organization criteria for BMD impression classify patients as: Normal (T-score at or above -1.0), Osteopenia (T-score between -1.0 and -2.5), or Osteoporosis (T-score at or below -2.5). 10-year Fracture Risk(1): Major Osteoporotic Fracture 11% Hip Fracture 2.5% Reported Risk Factors: [place] (), Neck BMD=0.658, BMI=36.6 (1) FRAX(R) Version 3.08. Fracture probability calculated for an untreated patient. Fracture probability may be lower if the patient has received treatment. Previous Exams: Region Exam Age BMD T-score BMD Change BMD Change Date g/cm2 vs Baseline vs Previous Total Hip(Left) 04/16/2024 74 1.003 0.5 -0.040 (-3.8%) -0.040 (-3.8%) 02/03/2021 70 1.043 0.8 Total Hip(Right) 04/16/2024 74 0.949 0.1 -0.024 (-2.4%) -0.024 (-2.4%) 02/03/2021 70 0.973 0.3 *Denotes significance at 95% confidence level, LSC for Total Hip = 0.027 g/cm2 Clinical Information Provided by Patient: Has used the following medications: Vitamin D, Calcium Patient maximum height was 68 Menopause Age: 50 No regular weight bearing exercise Drinks caffeinated beverages Onset of menses at age 11 Number of children 3 Impression: The patient has low bone mass, based on the Left Femoral Neck T-score. The patient has an estimated ten-year risk of hip fracture of 2.5% and an estimated ten-year risk of major fracture of 11%, based on the WHO FRAX algorithm. The BMD for the Total Hip(Left) decreased, changing by -3.8% since the last DXA exam. Discussion: BONE DENSITY IS LOW AT ONE OR MORE SKELETAL SITES. This patient's lowest T-score is low at one or more skeletal sites. It meets the World Health Organization's (WHO) criteria for ?low bone mass? (T-score between -1.0 and -2.5). The patient's 10-year risk of fracture as calculated by FRAX is less than the threshold where pharmacological therapy is recommended by the National Osteoporosis Foundation (NOF). However, all treatment decisions require clinical judgment and consideration of individual patient factors, including patient preferences, comorbidities, previous drug use, risk factors not captured in the FRAX model (e.g., frailty, falls, vitamin D deficiency, increased bone turnover, interval significant decline in bone density) and possible under or overestimation of fracture risk by FRAX. The patient should follow a healthful lifestyle (good nutrition with adequate calcium and vitamin D, and appropriate weight-bearing exercise). Follow-Up: Consider repeating this study in 2 years to reassess this patient's status, or sooner if there is some new clinical indication. Reported by: KORY on 04/16/2024 8:35:00 AM. Reviewed, dictated and finalized at location A. [facility]ITALJamal
--- OUTSIDE RECORDS SUMMARY | 2024-04-16 08:10 | XMS_ITS | Clinical Summary ---
Author Organization [facility] Address [address] [place] [address] Care Team Providers Care Fuel Attendant Name Role Phone TexNam millard Primary Care Provider Unavailabl e Allergies No known active allergies Medications empagliflozin (Jardiance) 10 mg tablet Take 10 mg by mouth 2 times daily. Active potassium chloride (KLOR-CON) 10 mEq Extended Release tablet Take 10 mEq by mouth. Active glimepiride (AMARYL) 1 mg tablet Take 1 mg by mouth 2 times daily. One in AM and half in PM Active furosemide (LASIX) 40 mg tablet Take 40 mg by mouth daily. Active Irbesartan (AVAPRO) 300 mg tablet Take 300 mg by mouth daily at bedtime. Active metFORMIN (GLUCOPHAGE) 1,000 mg tablet Take 1,000 mg by mouth 2 times daily with meals. Active metoprolol succinate (TOPROL XL) 25 mg Extended Release 24 hour tablet Take 25 mg by mouth daily. 1/2 pill a day Active atorvastatin (LIPITOR) 10 mg tablet Take 10 mg by mouth daily. Active Active Problems Problem Noted Date Diagnosed Date Anal cancer 06/17/2020 Encounters Date Type Department Care Team Description 03/14/2024 External Device Data ST[facility] ABSTRACTION Provider, Abstract from Last 3 Months Family History Medical History Relation Name Comments Hodgkin's lymphoma Sister 2 Relation Name Status Comments Father Mother Alive Sister 1 Alive Sister 2 Son 1 Alive Son 2 Alive Son 3 Alive Social History Tobacco Use Types Packs/Day Years Used Date Smoking Tobacco: Never Smokeless Tobacco: Never Tobacco Cessation:Counseling Given: Not Answered Alcohol Use Standard Drinks/Week Comments Yes 0 (1 standard drink = 0.6 oz pur e alcohol) Comments Unknown Sex and Gender Information Value Date Recorded Sex Assigned at Not on file Legal Sex Female 2:18 PM CDT Gender Identity Not on file Sexual Orientation Not on file Last Filed Vital Signs Vital Sign Reading Time Taken Comments Blood Pressure 145/59 12/28/2022 1:13 PM CUSTOMER SUPPORT SPECIALIST Pulse 77 12/28/2022 1:07 PM CUSTOMER SUPPORT SPECIALIST Temperature 36.3 C (97.3 F) 12/28/2022 1:07 PM CUSTOMER SUPPORT SPECIALIST Respiratory Rate 18 12/28/2022 1:07 PM CUSTOMER SUPPORT SPECIALIST Oxygen Saturation 97% 12/28/2022 1:07 PM CUSTOMER SUPPORT SPECIALIST Inhaled Oxygen Concentration - - Weight 102.9 kg (226 lb 12.8 oz) 12/28/2022 1:07 PM CUSTOMER SUPPORT SPECIALIST Height 170.2 cm (5' 7 ) 10/13/2021 1:10 PM CDT Body Mass Index 35.52 10/13/2021 1:10 PM CDT Plan of Treatment Upcoming Encounters Date Type Department Care Team (Late st Contact Info) Description 12/27/2024 9:45 AM CUSTOMER SUPPORT SPECIALIST Office Visit [facility] - [place] [address] [facility] [address] [place] [address] Keith Mon MD [address] [facility] [address] [place] [address] Health Maintenance Due Date Last Done Comments DTAP/TDAP/TD VACCINES (1 - Tdap) 02/11/1967 Traditional Medicare (ACO) A nnual Wellness Visit 02/11/1967 PNEUMOCOCCAL VACCINE 65+ YEA RS (1 of 1 - PCV) 02/11/1998 ZOSTER VACCINE (1 of 2) 02/11/1998 OSTEOPOROSIS SCREENING 02/11/2013 RSV VACCINE (60+ or ) (1 - 1-dose 75+ series) 02/11/2023 INFLUENZA VACCINE (#1) 2023 COLORECTAL SCREENING Discontinued 05/09/2022, 03/29/2021, 05/27/2020, Additional history exists Colorectal Cancer Screening Discontinued FIT-DNA Q 3 years Discontinued FIT/FOBT Q 1 year Discontinued Flex Sig/CT Colonography Q 5 years Discontinued Insurance MEDICARE PART A AND B [facility] Care Teams Fuel Attendant Relationship Specialty Start Date End Date Nam Garza DO PCP - General Gastroenterology 06/17/20
--- OUTSIDE RECORDS SUMMARY | 2024-04-16 08:10 | XMS_ITS | Clinical Summary ---
Author Organization [facility] Address [address], [address] [address] Phone Care Team Providers Care Jet Dyeing Machine Tender Name Role Phone Aylin Reid DIRECTOR OPERATIONS Primary Care Provider [phone] Social History Tobacco Use Types Packs/Day Years Used Date Smoking Tobacco: Never Assessed Comments Unknown Sex and Gender Information Value Date Recorded Sex Assigned at Not on file Legal Sex Female 8:55 AM CDT Gender Identity Not on file Sexual Orientation Not on file Plan of Treatment Health Maintenance Due Date Last Done Comments DEXA Bone Density 1950 Hepatitis C Virus (HCV) Screening 1950 TdaP Immunization 1950 Pneumococcal Immunization (5 0+ years) (1 of 1 - PCV) 02/11/1998 Zoster Immunization (1 of 2) 02/11/1998 Respiratory Syncytial Virus (RSV) Immunization (Adult) (1 - 1-dose 75+ series) 02/11/2023 Influenza Immunization (#1) 2023 SARS-COV-2 Immunization ( - season) 2023 Colonoscopy High Risk Discontinued 05/27/2020 Colonoscopy Discontinued 05/27/2020 Colorectal Cancer Screening Discontinued Cologuard Discontinued Hepatitis B Immunization Aged Out No longer eligible based on patient's age to complete this topic Immunochemical Fecal Occult Blood Discontinued Meningococcal Immunization (ACWY) Aged Out No longer eligible based on patient's age to complete this topic Rotavirus Immunization Aged Out No lo nger eligible based on patient's age to complete this topic Procedures Procedure Name Priority Date/Time Associated Diagnosis Comments HM COLONOSCOPY Routine 05/27/2020 from Last 3 Months or Most Recently Relevant to Health Maintenance Results * COLONOSCOPY (05/27/2020) Nam Garza DO PROCEDURE/MINOR SURGICAL ORDERA BLES Final Result from Last 3 Months or Most Recently Relevant to Health Maintenance Insurance MEDICARE [facility] Care Teams Jet Dyeing Machine Tender Relationship Specialty Start Date End Date Aylin Reid APRN PCP - General Family Medicine 05/18/20
--- OUTSIDE RECORDS SUMMARY | 2024-04-16 08:10 | XMS_ITS | Encounter Summary ---
Author Organization [facility] Address [address] [place] [address] Care Team Providers Care Low Altitude Air Defense Officer Name Role Phone Nam Garza DO Primary Care Provider Unavailabl e Encounter Details Date Type Department Care Team (Late Contact Info) Description 06/18/2020 Chart Note [facility] Radiation Therapy [address] [place] [address] [place] [address] [place] [address] Social History Tobacco Use Types Packs/Day Years Used Date Smoking Tobacco: Never Smokeless Tobacco: Never Alcohol Use Standard Drinks/Week Comments Yes 0 (1 standard drink = 0.6 oz pur e alcohol) Comments Unknown Sex and Gender Information Value Date Recorded Sex Assigned at Not on file Legal Sex Female 2:18 PM CDT Gender Identity Not on file Sexual Orientation Not on file COVID-19 Exposure Response Date Recorded In the last month, have you been in contact with someone who was confirmed or suspected to have Coronavirus / COVID-19? No / Unsure 06/17/2020 2:21 PM CDT documented as of this encounter Plan of Treatment Upcoming Encounters Date Type Department Care Team (Late Contact Info) Description 12/27/2024 9:45 AM STATISTICAL ENGINEER Office Visit [facility] Oncology and Hematology - [place] [address] [facility] [address] [place] [address] Keith Mon MD [address] [facility] [address] [place] [address] documented as of this encounter Visit Diagnoses Not on filedocumented in this encounter Care Teams Low Altitude Air Defense Officer Relationship Specialty Start Date End Date Nam Garza DO PCP - General Gastroenterology 06/17/20 documented as of this encounter
== END 2024-04-16 07:59 | disposition home or self-care (01) ==
LOC: ANHIMG 07:59
PROVIDERS: PCP Family Medicine; Visit Provider Family Medicine
DX: Z78.0 Asymptomatic menopausal state (principal); M85.852 Other specified disorders of bone density and structure, left thigh; M85.851 Other specified disorders of bone density and structure, right thigh
CPT/HCPCS: 77080

== ENCOUNTER 2024-07-09 09:30 | Outpatient (RCR) | payer MEDICARE, SELFPAY ==
--- NOTE | 2020-06-18 12:21 | P.CONRAD_ITS ---
Recommendations I had a lengthy and detailed discussion with Ms. Peñaloza regarding the role of radiation therapy in the management of anal cancer. I agree that she is a good candidate for definitive concurrent chemoradiation therapy. I recommend the standard course of treatment with Joan-style chemotherapy per Dr. Mon. Given the proximity of the treatment volume to critical normal structures including the bowel, bladder, femurs, and external genitalia, IMRT will be required in an effort to spare these structures while providing the necessary high curative doses of radiation to the target. We discussed the details of external beam radiation therapy directed at the anal cancer and regional lymph nodes (pelvic and inguinal) delivered daily, Monday through Monday over about 6 weeks. We discussed the expected acute side effects of treatment including loose stools, dysuria, vaginal irritation/discharge, fatigue and perineal skin irritation, as well as the possible but unlikely late complications including vaginal foreshortening/fibrosis, bowel injury, pelvic insufficiency fracture, and minor rectal bleeding. These side effects of radiotherapy will be minimized with the use of IMRT. After our discussion, Ms. Peñaloza expressed an interest in proceeding with treatment as outlined. She will return for CT simulation and radiation treatment planning in the upcoming days. We will coordinate the start of her treatment with medical oncology for concurrent chemotherapy. A total time of about 60 minutes was spent counseling the patient and coor dinating care, with more than half the time discussing treatment options and potential risks and benefits. Thank you for allowing me to participate in the care of this patient. If I can be of any further assistance, please do not hesitate to contact me. Impression 70 y.o. female with a clinical stage IIB (T3 N0 M0) approximately 5 cm anal cancer arising in the perianal region with extension into the anal canal. 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 PMFSH - Date/Time Seen 06/18/20 12:21 - Identifying Data Jazmín Peñaloza is a 70 y.o. female with a clinical stage IIB (T3 N0 M0) approximately 5 cm anal cancer arising in the perianal region with extension into the anal canal. 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 She is seen in consultation today at the request of Dr. Keith Mon for an opinion regarding radiation therapy. - History of Present Illness Ms. Peñaloza initially presented with what was thought to be a thrombosed hemorrhoid. On 05/27/2020, he underwent a colonoscopy including digital rectal examination which revealed a protruding lesion in the perianal region externally as well as an indurated area internally in the anal canal. Examination of the rectum forward and retroflexed view revealed an anal mass. 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 CT chest abdomen and pelvis on 06/17/2020 showed no evidence of regional or distant spread of disease. Incidentally noted was chronic pancreatitis with multiple small cystic masses and large periumbilical hernia. She was seen by Dr. Fabio Hoyt and local excision was not recommended. She was referred for consideration of definitive chemoradiation therapy. Currently, she is doing well and reports only slight oozing of blood from the perianal mass. Her weight and appetite are stable. She denies pain (including with bowel movements) and other new complaints. - Medical History Medical History (Last Updated 06/01/20 @ 14:36 by Jessa Paredes) Benign essential hypertension Cardiomyopathy no echo on the chart Hyperlipidemia Hypertension Postmenopausal Screening for breast cancer Screening for colon cancer - Surgical History Surgical History (Last Reviewed 06/01/20 @ 14:08 by Jessie Jiménez CMA) History of right knee joint replacement Hx of colonoscopy unable to complete due to transverse colon in a hernia - Family History Family History (Last Reviewed 06/01/20 @ 14:08 by Jessie Jiménez CMA) Mother Family history of elevated blood lipids Father Family history of diabetes mellitus in first degree relative Family history of coronary artery disease Cerebrovascular accident Family history of Alzheimer's disease Sibling Hodgkin disease Other Diabetes mellitus Family history of hypercholesterolemia - Social History Social History (Last Reviewed 06/01/20 @ 14:08 by Jessie Jiménez CMA) Gender Identity: Gender identity (if verbalized by the patient): Female Alcohol Use: Alcohol intake: current Substance Use: Substance use: never Others: Spiritual care concerns: No Smoking Status: Smoking status: Former smoker Tobacco type: cigarettes Smoking Pack-years: Years smoked: 4 - Medications fluocinonide 0.05 % topical cream 1 applic TOPICAL BID 12/17/18 [History Confirmed 06/18/20] metoprolol succinate 25 mg tablet,extended release 24 hr 12.5 mg PO DAILY #90 tablet 01/14/20 [Rx Confirmed 06/18/20] potassium chloride 10 mEq tablet,extended release 10 meq PO .every other day #90 tablet 03/09/20 [Rx Confirmed 06/18/20] atorvastatin 10 mg tablet See Rx Instructions .ROUTE .COMPLEX #90 tablet 05/04/20 [Rx Confirmed 06/18/20] furosemide 40 mg tablet See Rx Instructions .ROUTE .COMPLEX #90 tablet 05/04/20 [Rx Confirmed 06/18/20] glimepiride 2 mg tablet See Rx Instructions .ROUTE .COMPLEX #135 tablet 05/04/20 [Rx Confirmed 06/18/20] irbesartan 300 mg tablet See Rx Instructions .ROUTE .COMPLEX #90 tablet 05/04/20 [Rx Confirmed 06/18/20] metformin 1,000 mg tablet See Rx Instructions .ROUTE .COMPLEX #180 tablet 05/04/20 [Rx Confirmed 06/18/20] empagliflozin [Jardiance] 20 mg PO DAILY 06/18/20 [History Confirmed 06/18/20] - PMFSH Comments No history of prior radiotherapy. No history of lupus, scleroderma or other connective tissue disorder. - Allergies Allergies Allergy/AdvReac Type Severity Reaction Status Date / Time No Known Allergies Allergy Mild Verified 06/18/20 13:13 Review of Systems - Constitutional Reports no additional constitutional complaints - Eyes Reports no additional eye complaints - ENT Reports no additional ear, nose, mouth, and throat complaints - Cardiovascular Reports no additional cardiovascular complaints, Reports other (hyperlipidemia, hypertension, CHF) - Respiratory Reports no additional respiratory complaints - Gastrointestinal Reports as per HPI, Reports no additional gastrointestinal complaints - Genitourinary Reports no additional female genitourinary complaints - Musculoskeletal Reports no additional musculoskeletal complaints - Integumentary/Breasts Skin/Breast: Reports no additional skin complaints - Neurologic Reports no additional neurologic complaints - Psychiatric Reports no additional psychiatric complaints - Endocrine Reports other (+ diabetes) Exam - General Very pleasant, obese elderly female in no apparent distress. Alert and oriented x 3. - Vital Signs Vital Signs Temp Pulse Resp BP Pulse Ox 06/18/20 13:17 36.9 C 80 20 136/84 98 Patient Weight 06/18/20 23:59 Weight 110.28 kg Pain rating is 0. - Exam HEENT: EOMI, PERRLA, mucous membranes moist and pink Neck: supple. No: lymphadenopathy, thyromegaly Lungs: clear to auscultation, normal air movement Heart: no murmurs, gallops, or rubs, regular rhythm, regular rate Abdomen: abdomen soft, non-distended, other (abdominal hernia). No: tender Extremities: No: edema Integumentary: no abnormalities Neurological: normal gait, normal speech Psychological: mental status NL, mood NL Other physical findings: Rectal: Digital rectal examination reveals a protruding lesion in the perianal region with palpable induration extending into the anal canal on the right. The extent of the lesion spans approximately 5 cm. Normal anal sphincter tone, and no rectal lesions. There is a small amount of blood on the examining finger. - Radiologic Data EXAMINATION: CT chest abdomen pelvis w con DATE: 06/09/2020 16:01 CDT INDICATION: Rectal mass TECHNIQUE: Computed tomography (CT) of the chest, abdomen, and pelvis was performed with 100 cc Omnipaque 350 intravenous contrast. The dose-length product was 1449.79 mGy-cm. COMPARISON: None FINDINGS: CHEST CT: There is calcified granuloma of the left lower lobe. There is dependent atelectasis. No endobronchial lesions. No pathologically enlarged thoracic lymph nodes. No significant pleural or pericardial effusion. ABDOMEN/PELVIS CT: The liver, spleen, adrenal glands and left kidney are unremarkable. There is a 3 mm nonobstructing right renal stone. There are gallstones. The pancreas is atrop hic containing calcifications and multiple small cystic masses, largest measuring 1.8 cm. Nonobstructive bowel gas pattern. Normal appendix. There is a lower abdominal wall ventral hernia containing nonobstructed transverse colon no definitive rectal mass identified. No pathologically enlarged lymph nodes. No lytic or blastic lesions. Severe thoracic and lumbar spondylosis with scoliosis. IMPRESSION: 1. Chronic pancreatitis with multiple small cystic masses of the pancreatic body measuring up to 1.8 cm. The differential diagnosis includes pseudocyst, intraductal papillary mucinous neoplasm (IPMN), mucinous cystic neoplasm (MCN), and the less common serous cystadenoma and neuroendocrine tumor. 2: Nonobstructing right nephrolithiasis. 3: Large periumbilical hernia containing nonobstructed transverse colon. - Pathologic Data 05/27/2020 Final Diagnosis A. ANAL MASS, ENDOSCOPIC BIOPSY: - SQUAMOUS CELL CARCINOMA, MODERATELY DIFFERENTIATED, NONKERATINIZING, P16- POSITIVE (SEE COMMENT).
[2020-06-18 13:13] VITALS: BMI 38.0
[2020-06-18 13:17] VITALS: BP 136/84; PULSE 80; RESP 20; TEMP 36.9; O2SAT 98
--- NOTE | 2020-06-23 12:33 | PDRADONCFUV ---
Assessment/Plan - Assessment Ready to start radiotherapy - Plan 1. Proceed with CT simulation and radiation treatment planning. 2. Plan for 28 fractions over about 6 weeks starting in one week. 3. Informed consent obtained. 4. Concurrent Joan-style chemotherapy per Dr. Mon Time spent with patient and reviewing medical record, including imaging and laboratory findings as well as notes from collaborating physicians: 20 minutes Follow Up Note - Date/Time 06/23/20 12:33 - Identifying Data Jazmín Peñaloza is a 70 y.o. female with a clinical stage IIB (T3 N0 M0) approximately 5 cm anal cancer arising in the perianal region with extension into the anal canal. 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 She returns now for initiation of radiation treatment planning. - Interval History No new complaints. Persistent spotting of blood. H&P - Exam - General Appears well. - Vital Signs Vital Signs Temp Pulse Resp BP Pulse Ox 06/23/20 15:03 36.3 C L 86 20 147/72 H 100 Pain rating is 0.
--- NOTE | 2020-06-23 12:40 | WPDRADIATPRO ---
Radiation Procedure Note - Date/Time Date/Time: 06/23/20 12:40 - Summary Summary: Procedure Date: 06/23/[address] SIMULATION PROCEDURE PURPOSE: The patient is undergoing a virtual CT simulation for external beam radiation treatment planning. Today’s CT dataset will be utilized for intensity modulated treatment planning (IMRT). TREATMENT SITE(S): Pelvis NUMBER OF AREAS OR EDWARDS: One treatment area was simulated today. NUMBER OF PORTS: IMRT using multiple static gantry angles, arcs, or helical tomotherapy will be needed to cover the treatment volume and adequately protect nearby critical normal tissues. The number of ports will be determined during the treatment planning process. EQUIPMENT USED: Simulation was performed on the department’s dedicated CT simulator. IMMOBILIZATION: An alpha cradle device was fabricated to immobilize the patient’s body in treatment position. CONTRAST MEDIA: The use of contrast was not required for this simulation. EXTERNAL MARKERS: A radio-opaque marker was placed on the anus., A radio-opaque marker was placed in the vagina. TATTOOS: Positioning tattoos were applied to the patient’s skin BLOCKING: An intensity map generated by multiple MLC-shaped beamlets of complex design will be constructed as part of an IMRT treatment plan. COMPENSATING FILTER / WEDGE: None ISODOSE PLAN: An IMRT treatment plan will be performed to precisely deliver a specified dose to the treatment volume with narrow margins and to protect adjacent critical normal tissues from receiving excessive radiation exposure. SCHEDULING Prior to delivering the first radiation fraction, a simulation will be performed on the linear accelerator utilizing electronic portal imaging to verify the isocenter location and block design. DAILY IMAGE GUIDANCE: Utilizing the integrated CT scanner on the [employer] treatment machine, CT images through the treatment volume will be acquired daily prior to treatment to ensure precise patient positioning, thus allowing treatment of the tumor with narrow margins. MEDICAL NECESSITY FOR IMRT TREATMENT PLANNING: The target volume is in close proximity to critical normal structures (small bowel, bone marrow, bladder, rectum, femurs, nerves) and must be treated with narrow margins to adequately protect immediately adjacent structures in order to reduce the probability of radiation toxicity. The dose required to deliver to the target volume exceeds the tolerance of these adjacent normal structures, which are so close that IMRT is the only treatment modality that can achieve this, as opposed to conventional 3D-treatment planning. MEDICAL NECESSITY FOR IGRT TREATMENT PLANNING: There is inherent patient setup variation that could result in geometric miss of the target volume and/or excessive dose delivery to the adjacent normal structures. IGRT is the only treatment modality that can correct for daily variances in target volume location, further improving the therapeutic ratio over IMRT alone.
--- NOTE | 2020-06-23 12:46 | P.RADTP_ITS ---
Radiation Treatment Plan - Date/Time Date/Time: 06/23/20 12:46 - Summary Summary: CLINICAL TREATMENT PLAN PROCEDURE DATE: 06/23/2020 TREATMENT INTENT: Cure SPECIAL TEST(S) INTERPRETED FOR TUMOR DELINEATION: none CHEMOTHERAPY CONSIDERATIONS: Concurrent chemotherapy (Joan-style per Dr. Mon) PROTOCOL ENROLLMENT: none TREATMENT SITE(S): Pelvis NUMBER OF AREAS OR EDWARDS: 1 treatment area(s) NUMBER OF TREATMENT PORTS: Multiple conformal arcs (number to be determined during treatment planning process) IMMOBILIZATION: Alpha-cradle TREATMENT DEVICES: Custom blocks of complex design TREATMENT MODALITY: External photon beam, Concurrent chemotherapy PLANNED DOSE: 5040 cGy in 180 cGy fractions FRACTIONATION: QD TECHNIQUE CONTEMPLATED: IMRT, IGRT MEDICAL NECESSITY FOR IMRT TREATMENT PLANNING: The target volume is in close proximity to critical normal structures (bowel, bladder, femurs, external genitalia) and must be treated with narrow margins to adequately protect immediately adjacent structures in order to reduce the proba bility of radiation toxicity. The dose required to deliver to the target volume exceeds the tolerance of these adjacent normal structures, which are so close that IMRT is the only treatment modality that can achieve this, as opposed to conventional 3D-treatment planning. MEDICAL NECESSITY FOR IGRT TREATMENT PLANNING: There is inherent patient setup variation that could result in geometric miss of the target volume and/or excessive dose delivery to the adjacent normal structures. IGRT is the only treatment modality that can correct for daily variances in target volume location, further improving the therapeutic ratio over IMRT alone.
--- NOTE | 2020-06-23 12:46 | WPDONCRADTXP ---
Radiation Treatment Plan - Date/Time Date/Time: 06/23/20 12:46 - Summary Summary: SPECIAL TREATMENT MANAGEMENT MEDICAL NECESSITY: A special treatment management code (87095) has been charged for this patient due to the additional time and effort required of myself and the department staff while performing and/or managing a special treatment situation. This procedure has been charged only once during the entire course of treatment. SPECIAL TREATMENT PROCEDURE: The administration of concurrent chemotherapy (Joan-style) may result in greater side effects during and after the patient's planned course of radiation therapy. Radiation can react adversely with the effects of chemotherapy and create medical problems of a much greater severity than would be seen in a patient receiving radiation alone. This will considerably increase the complexity of the current treatment plan and on-going management of this patient.
[2020-06-23 15:03] VITALS: BP 147/72; PULSE 86; RESP 20; TEMP 36.3; O2SAT 100
--- NOTE | 2020-06-30 13:37 | WPDRADIATPRO ---
Radiation Procedure Note - Date/Time Date/Time: 06/30/20 13:37 - Summary Summary: Procedure Date: 06/30/2020 ISOCENTER VERIFICATION SIMULATION PURPOSE: The patient initially underwent virtual CT simulation. A simple simulation was performed on the linear accelerator utilizing the integrated cone-beam (CB) CT for isocenter verification prior to treatment delivery of the first fraction. EQUIPMENT USED: Simulation was performed on the linear accelerator. PROCEDURE DETAILS: This simulation was performed prior to the first radiation fraction to the pelvis. The patient was placed on the treatment couch with her body immobilized using a custom fabricated alpha-cradle in treatment position and aligned to the 3-point setup tattoos. A CB CT was acquired through the treatment area. The CB CT images were fused and aligned to the treatment planning CT image set. I reviewed the CT alignment images and made any necessary adjustments. Couch shifts were calculated in order to bring the patient into precise alignment prior to treatment delivery. ASSESSMENT: The isocenter alignment process was successful. ORDERS: Proceed with treatment as planned.
[2020-07-06 12:29] VITALS: BP 126/88; PULSE 82; RESP 20; TEMP 37.3; O2SAT 99
--- NOTE | 2020-07-06 12:29 | WPDRADONCOTV ---
Assessment and Plan - Additional Plan Tolerating radiotherapy. Imaging reviewed. Continue routine skin care. Continue treatment as planned. Chemotherapy Monday per Dr. Mon. On Treatment Visit - Date/Time of Treatment Date/Time: 07/06/20 12:29 Identifying data: Jazmín Peñaloza is a 70 y.o. female with a clinical stage IIB (T3 N0 M0) approximately 5 cm anal cancer arising in the perianal region with extension into the anal canal. 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 She is now undergoing radiation therapy. Site: Pelvis Dose: 900 cGy of 5040 cGy Fraction: History: No complaints. She starts chemo Monday. H&P - Exam - General Appears well. - Vital Signs Vital Signs Temp Pulse Resp BP Pulse Ox 07/06/20 12:29 37.3 C 82 20 126/88 99 Patient Weight 07/06/20 23:59 Weight 110.733 kg Pain rating is 0.
[2020-07-13 11:57] VITALS: BP 124/74; PULSE 76; RESP 20; TEMP 36.6; O2SAT 99
--- NOTE | 2020-07-13 12:01 | WPDRADONCOTV ---
Assessment and Plan - Additional Plan Tolerating radiotherapy. Imaging reviewed. Continue routine skin care. Continue treatment as planned. Chemotherapy per Dr. Mon. On Treatment Visit - Date/Time of Treatment Date/Time: 07/13/20 12:01 History: Identifying data: Jazmín Peñaloza is a 70 y.o. female with a clinical stage IIB (T3 N0 M0) approximately 5 cm anal cancer arising in the perianal region with extension into the anal canal. 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 She is now undergoing radiation therapy. Site: Pelvis Dose: 1800 cGy of 5040 cGy Fraction: History: No complaints. Receiving chemo per Dr. Mon. Tolerated chemo well last week. H&P - Exam - General Appears well. - Vital Signs Vital Signs Temp Pulse Resp BP Pulse Ox 07/13/20 11:57 36.6 C 76 20 124/74 99 Patient Weight 07/13/20 23:59 Weight 108.862 kg Pain rating is 0.
[2020-07-21 10:53] VITALS: BP 136/74; PULSE 76; RESP 20; TEMP 36.7; O2SAT 100
--- NOTE | 2020-07-21 10:54 | WPDRADONCOTV ---
Assessment and Plan - Additional Plan Tolerating radiotherapy. Imaging reviewed. Continue routine skin care. Continue treatment as planned. Chemotherapy per Dr. Mon. On Treatment Visit - Date/Time of Treatment Date/Time: 07/21/20 10:54 History: Identifying data: Jazmín Peñaloza is a 70 y.o. female with a clinical stage IIB (T3 N0 M0) approximately 5 cm anal cancer arising in the perianal region with extension into the anal canal. 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 She is now undergoing radiation therapy. Site: Pelvis Dose: 2700 cGy of 5040 cGy Fraction: History: No complaints other than mild loose stools. Tolerating chemo H&P - Exam - General Appears well. - Vital Signs Vital Signs Temp Pulse Resp BP Pulse Ox 07/21/20 10:53 36.7 C 76 20 136/74 100 Patient Weight 07/21/20 23:59 Weight 108.862 kg Pain rating is 0.
[2020-07-27 09:45] VITALS: BP 134/74; PULSE 68; RESP 20; TEMP 36.2; O2SAT 99
--- NOTE | 2020-07-27 09:52 | WPDRADONCOTV ---
Assessment and Plan - Additional Plan Tolerating radiotherapy. Imaging reviewed. Continue routine skin care with Aquaphor 2-3 times per day - skin check on the treatment table tomorrow. NSAIDs for discomfort. Continue treatment as planned. Chemotherapy per Dr. Mon. On Treatment Visit - Date/Time of Treatment Date/Time: 07/27/20 09:52 History: Identifying data: Jazmín Peñaloza is a 70 y.o. female with a clinical stage IIB (T3 N0 M0) approximately 5 cm anal cancer arising in the perianal region with extension into the anal canal. 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 She is now undergoing radiation therapy. Site: Pelvis Dose: 3420 cGy of 5040 cGy Fraction: History: + skin irritation worse in the skin folds. + vaginal discharge. Mild loose stools. Tolerating chemo H&P - Exam - General Appears well. - Vital Signs Vital Signs Temp Pulse Resp BP Pulse Ox 07/27/20 09:45 36.2 C L 68 20 134/74 99 Patient Weight 07/27/20 23:59 Weight 109.486 kg Pain rating is 0. - Exam Integumentary: erythema (worse within skin folds. No moist desquamation. )
--- NOTE | 2020-08-03 09:32 | WPDRADONCOTV ---
Assessment and Plan - Additional Plan Tolerating radiotherapy. Imaging reviewed. Continue routine skin care with Aquaphor 2-3 times per day - skin check on the treatment table tomorrow. Desitin as barrier cream. NSAIDs for discomfort. Chemotherapy per Dr. Mon. Continue treatment as planned. Four more fractions and then return in 6 weeks for follow-up. On Treatment Visit - Date/Time of Treatment Date/Time: 08/03/20 09:32 History: Identifying data: Jazmín Peñaloza is a 70 y.o. female with a clinical stage IIB (T3 N0 M0) approximately 5 cm anal cancer arising in the perianal region with extension into the anal canal. 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 She is now undergoing radiation therapy. Site: Pelvis Dose: 4320 cGy of 5040 cGy Fraction: History: + skin irritation -tolerable. Using aquaphor and desitin. + vaginal discharge. Mild loose stools - no diarrhea. Last chemo starts Monday H&P - Exam - General Appears well. - Vital Signs Vital Signs Temp Pulse Resp BP Pulse Ox 08/03/20 09:36 36.7 C 70 20 152/76 H 99 Patient Weight 08/03/20 23:59 Weight 109.372 kg Pain rating is 0. - Exam Integumentary: erythema (brisk erythema and moist desquamation - anal skin)
[2020-08-03 09:36] VITALS: BP 152/76; PULSE 70; RESP 20; TEMP 36.7; O2SAT 99
--- NOTE | 2020-08-13 11:40 | WPDRADIATTXS ---
Radiation Treatment Summary - Date/Time Date/Time: 08/13/20 11:40 - Diagnosis Diagnosis: Jazmín Peñaloza is a 70 y.o. female with a clinical stage IIB (T3 N0 M0) approximately 5 cm anal cancer arising in the perianal region with extension into the anal canal. 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 She completed a course of definitive chemoradiation therapy between 06/30/2020 and 08/07/2020. - Narrative Narrative: TREATMENT DELIVERED The anal GTV and entire anal canal received 5040 cGy delivered in 28 fractions of 180 cGy each. The clinically uninvolved pelvic and inguinal nodes received 4200 cGy delivered in 28 fractions of 150 cGy each. Treatment was administered using Tomotherapy helical IMRT. CT simulation was utilized for treatment planning and DVH analysis. Her body was immobilized in treatment position with a custom fabricated alpha-cradle. Daily CT image guidance was utilized to ensure highly precise patient alignment. TREATMENT COURSE She was treated with a full bladder. She tolerated treatment fairly well. She developed mild increased urinary frequency and dysuria, not requiring medication. She experienced mild diarrhea which was controlled with Imodium and diet modification. She reported no rectal irritation. As is quite common during radiation for anal canal cancer, she developed brisk skin erythema over the groins, perineum, and vulva with minimal moist desquamation Her skin reaction was managed with Aquaphor and Desitin. DISPOSITION She will return for a follow-up visit in 6 weeks or sooner as needed.
[2020-09-18 09:33] VITALS: BP 120/68; PULSE 70; RESP 20; TEMP 36.6; O2SAT 100
--- NOTE | 2020-09-18 09:36 | PDRADONCFUV ---
Assessment/Plan - Assessment Resolution of acute effects of treatment. No evidence of persistent or recurrent disease. - Plan 1. Return to clinic in 3 months for routine follow-up. 2. Continue follow-up with Dr. Mon in the interim. 3. Repeat CT imaging in [address] Mon. Time spent with patient and reviewing medical record, including imaging and laboratory findings as well as notes from collaborating physicians: 20 minutes Follow Up Note - Date/Time 09/18/20 09:36 - Identifying Data Jazmín Peñaloza is a 70 y.o. female with a clinical stage IIB (T3 N0 M0) approximately 5 cm anal cancer arising in the perianal region with extension into the anal canal. 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 She completed a course of definitive chemoradiation therapy between 06/30/2020 and 08/07/2020 and returns now for routine follow-up. - Interval History Since she completed chemoradiation therapy, she reports that she has been doing well without any new problems. Her skin reaction which was fairly severe with moist desquamation in her perianal, perineal, vaginal and inguinal folds resolved over a couple of weeks. She is having normal BM's and denies urinary difficulties. She does report persistent fatigue which is slowly improving. H&P - Exam - General Appears well. NAD. AAOx3. - Vital Signs Vital Signs - 24 hr 09/18/20 09:33 Temperature 36.6 C Pulse Rate 70 Respiratory Rate 20 Blood Pressure 120/68 Pulse Oximetry 100 Pain rating is 0. - Exam Integumentary: other (No residual erythema. Complete resolution of the anal mass. )
--- NOTE | 2020-09-18 09:44 | PC.NURSE ---
i was present for the skin check done by Dr Huffman.
[2020-12-24 11:36] VITALS: BP 130/80; PULSE 88; RESP 20; TEMP 36.6; O2SAT 99
--- NOTE | 2020-12-24 12:03 | PDRADONCFUV ---
Assessment/Plan - Assessment Uneventful recovery from chemo-XRT. No evident disease. - Plan Follow-up with Dr. Mon in January. Follow-up with me in April 2021. Call with questions. Follow Up Note - Date/Time 12/24/20 12:03 - Identifying Data Jazmín Peñaloza is a 70 y.o. female with a clinical stage IIB (T3 N0 M0) approximately 5 cm anal cancer arising in the perianal region with extension into the anal canal. 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 She completed a course of definitive chemoradiation therapy between 06/30/2020 and 08/07/2020 and returns now for routine follow-up. - Interval History Patient has had a ventral hernia repair since she was last seen. This evidently went quite well. She is without pain. She denies urinary complaints. She denies new LE edema, but is still wearing her compression stockings. She has occasional loose stools but denies diarrhea. She has no blood in the bowel movements. H&P - Exam - Vital Signs Vital Signs - 24 hr 12/24/20 11:36 Temperature 36.6 C Pulse Rate 88 Respiratory Rate 20 Blood Pressure 130/80 Pulse Oximetry 99 - Exam HEENT: EOMI, PERRLA, mucous membranes moist and pink Neck: supple Lungs: clear to auscultation, normal air movement, decrease breath sounds Heart: no murmurs, gallops, or rubs, regular rhythm, regular rate Abdomen: abdomen soft, non-distended Extremities: normal pulses Other physical findings: AMANDA: Post-XRT atrophy of the perianal skin, but intact. Small area of scarring in the right posterior-right quadrant of anal margin. No masses on exam. No blood on finger.
[2021-04-22 09:00] VITALS: BP 132/84; PULSE 76; RESP 20; TEMP 36.6; O2SAT 100
--- NOTE | 2021-04-22 09:11 | PDRADONCFUV ---
Assessment/Plan - Assessment Clinically PORTER. - Plan Follow-up with me in 6 months. Continue follow-up with Dr. Mon. Call with questions. Follow Up Note - Date/Time 04/22/21 09:11 - Identifying Data Jazmín Peñaloza is a 71 y.o. female with a clinical stage IIB (T3 N0 M0) approximately 5 cm anal cancer arising in the perianal region with extension into the anal canal. 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 She completed a course of definitive chemoradiation therapy between 06/30/2020 and 08/07/2020 and returns now for routine follow-up. - Interval History Patient reports feeling very well. She has mild fatigue, but no issues with bowel movements. She describes her urinary function as normal. There is no numbness or tingling. There are no issues with her skin. She had a colonoscopy which showed no evidence of malignancy. She see Dr. Mon in a month. H&P - Exam - Vital Signs Vital Signs - 24 hr 04/22/21 09:00 Temperature 36.6 C Pulse Rate 76 Respiratory Rate 20 Blood Pressure 132/84 Pulse Oximetry 100 - Exam HEENT: EOMI, PERRLA Neck: supple Lungs: clear to auscultation, normal air movement Heart: no murmurs, gallops, or rubs, regular rhythm, regular rate Abdomen: abdomen soft, non-distended, normal bowel sounds Integumentary: other (Perianal skin with some atrophic changes, but no signs of cancer on AMANDA.) Neurological: normal gait, normal speech, normal muscle tone Psychological: mental status NL, mood NL
[2021-10-28 09:00] VITALS: BP 136/70; PULSE 70; RESP 20; TEMP 36.4; O2SAT 100
--- NOTE | 2021-10-28 09:12 | PDRADONCFUV ---
Assessment/Plan - Assessment Completed definitive chemoradiation therapy for anal canal cancer 14 months ago. Clinically PORTER. - Plan She sees Dr. Mon in February 2022. Planning next screening colonoscopy in March 2022. Return for follow-up here in June 2022 Follow Up Note - Date/Time 10/28/21 09:12 - Identifying Data Jazmín Peñaloza is a 71 y.o. female with a clinical stage IIB (T3 N0 M0) approximately 5 cm anal cancer arising in the perianal region with extension into the anal canal. 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 She completed a course of definitive chemoradiation therapy between 06/30/2020 and 08/07/2020 and returns now for routine follow-up. - Interval History Since she was last here, Ms. Peñaloza has been doing well with no new concerns. She still experiences intermittent fatigue. She denies loss of appetite, unexplained weight loss, new or worsening dyspnea, cough, wheezing, nausea or vomiting, abdominal pain, diarrhea, constipation, rectal bleeding, or incontinence. She describes her urinary function as normal. No vaginal bleeding or discharge. There is no numbness, tingling, or pain in the gluteal or pelvic region. No inguinal masses. She has had no issues with her skin. Denies pain. She sees Dr. Mon in February 2022 Planning next screening colonoscopy in March 2022. Screening Examinations: - Last screening colonoscopy: 03/29/2021 - Nodule seen at the anal verge and biopsies were performed. Otherwise normal colonoscopy. Pathology demonstrated glandular antral mucosa with nonspecific acute and chronic inflammation and benign acute ulcer. - Last screening mammogram: 02/03/2021 - Last PAP test: many years ago H&P - Exam - General HEENT: EOMI, PERRLA NECK: supple without masses LYMPHATICS: No cervical, supraclavicular, infraclavicular, axillary, or inguinal adenopathy LUNGS: clear to auscultation and percussion bilaterally with no wheezes, rhonchi, rales HEART: Soft systolic ejection murmur murmurs, no gallops or rubs, regular rate and rhythm ABDOMEN: Soft, nontender nondistended, without hepatosplenomegaly or masses RECTAL: Mild perianal erythema. No external anal masses. Normal sphincter tone. No anal canal masses or ulceration. NEUROLOGIC: Alert. Moves all 4 extremities well. Gait normal. PSYCHOLOGIC: Normal affect and mood. - Vital Signs Vital Signs - 24 hr 10/28/21 09:00 Temperature 36.4 C Pulse Rate 70 Respiratory Rate 20 Blood Pressure 136/70 Pulse Oximetry 100
[2022-07-07 09:03] VITALS: BP 118/64; PULSE 66; RESP 20; TEMP 36.5; O2SAT 99
--- NOTE | 2022-07-07 09:17 | P.RADPN_ITS ---
Assessment/Plan - Assessment Completed definitive chemoradiation therapy for anal canal cancer 23 months ago. No clinical or radiographic evidence of recurrent tumor. - Plan She sees Dr. Mon in August 2022. Planning next screening colonoscopy in April 2024. Return for follow-up here in 1 year. She was encouraged to call with questions or concerns prior to her next appointment. Margarita Billings Mai, MD This note was transcribed using '[employer]', a computerized voice recognition without a human supervisor speech. This report may or may not have been adjusted for typographical, grammatical and syntax errors. Follow Up Note - Date/Time 07/07/22 09:17 - Identifying Data Jazmín Peñaloza is a 72 y.o. female with a clinical stage IIB (T3 N0 M0) approximately 5 cm anal cancer arising in the perianal region with extension into the anal canal. 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 She completed a course of definitive chemoradiation therapy between 06/30/2020 and 08/07/2020 and returns now for routine follow-up. - Interval History Since she was last here, Ms. Peñaloza has been doing well with no new medical problems or concerns. She has occasional constipation or loose stools which she relates to her diet. She denies loss of appetite, unexplained weight loss, new or worsening dyspnea, persistent cough, chest pain, nausea or vomiting, abdominal/pelvic pain, rectal bleeding, or incontinence. She describes her urinary function as normal. No vaginal bleeding or discharge. There is no numbness, tingling, or pain in the gluteal or pelvic region. No inguinal masses. She has had no issues with her perianal skin. Denies pain. She sees Dr. Mon in August 2022. Last screening colonoscopy: * 05/09/2022 - Normal mucosa throughout the colon. No obvious mass. Follow-up in 2 years was recommended. Due in April 2024. * 03/29/2021 - Nodule seen at the anal verge and biopsies were performed. Otherwise normal colonoscopy. Pathology demonstrated glandular antral mucosa with nonspecific acute and chronic inflammation and benign acute ulcer. Last CT Abd/Pelvis: * 07/06/2022 - No evidence of recurrent or metastatic cancer. Last screening mammogram: * 06/08/2022 - negative Last PAP test: * many years ago , no longer does routine Pap screening H&P - Exam - General HEENT: Normocephalic atraumatic. EOMI. PERRLA. Sclera anicteric and conjunctive are clear. NECK: Supple without masses LYMPHATICS: No cervical, supraclavicular, infraclavicular, axillary, or inguinal adenopathy. LUNGS: Clear to auscultation and percussion bilaterally with no wheezes, rhonchi, rales. HEART: Regular rate and rhythm. 2/6 systolic ejection murmur. No gallops or rubs. ABDOMEN: Soft, nontender, nondistended, without hepatosplenomegaly or masses. RECTAL: Mild perianal erythema. No external anal masses or skin lesions. Mildly diminished sphincter tone. No anal canal masses or ulceration. NEUROLOGIC: Alert. Speech is fluent and comprehension appears intact. Moves all 4 extremities well. Gait steady. PSYCHOLOGIC: Normal affect and mood. - Vital Signs Vital Signs - 24 hr 07/07/22 09:03 Temperature 36.5 C Pulse Rate 66 Respiratory Rate 20 Blood Pressure 118/64 Pulse Oximetry 99
--- NOTE | 2023-07-07 09:03 | PDRADONCFUV ---
Assessment/Plan - Assessment Assessment Completed definitive chemoradiation therapy for anal canal cancer 3 years ago. No clinical or radiographic evidence of recurrent tumor. Plan She sees Dr. Mon in Dec 2023. Planning next screening colonoscopy in April 2024. Return for follow-up here in 1 year. She was encouraged to call with questions or concerns prior to her next appointment. Margarita Billings Mai, MD This note was transcribed using '[employer]', a computerized voice recognition without a human licensed professional counselor. This report may or may not have been adjusted for typographical, grammatical and syntax errors. Follow Up Note - Date/Time 07/07/23 09:03 Identifying Data Jazmín Peñaloza is a 73 y.o. female with a clinical stage IIB (T3 N0 M0) approximately 5 cm anal cancer arising in the perianal region with extension into the anal canal. 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 She completed a course of definitive chemoradiation therapy between 06/30/2020 and 08/07/2020 and returns now for routine follow-up. Interval History Since she was last here, Ms. Peñaloza has been doing well with no new medical problems or concerns. She has occasional loose stools (but not diarrhea) which she relates to her diet (primarily fried foods). She denies loss of appetite, unexplained weight loss, new or worsening dyspnea, persistent cough, chest pain, nausea or vomiting, abdominal/pelvic pain, rectal bleeding, or incontinence. She describes her urinary function as normal. No vaginal bleeding or discharge. There is no numbness, tingling, or pain in the gluteal or pelvic region. No inguinal masses. She has had no issues with her perianal skin. Denies pain. She sees Dr. Mon in Dec 2023. Last screening colonoscopy: * 05/09/2022 - Normal mucosa throughout the colon. No obvious mass. Follow-up in 2 years was recommended. Due in April 2024. * 03/29/2021 - Nodule seen at the anal verge and biopsies were performed. Otherwise normal colonoscopy. Pathology demonstrated glandular antral mucosa with nonspecific acute and chronic inflammation and benign acute ulcer. Last CT Abd/Pelvis: * 07/06/2022 - No evidence of recurrent or metastatic cancer. Last screening mammogram: * 06/08/2022 - negative Last PAP test: * many years ago , no longer does routine Pap screening Physical Examination HEENT: Normocephalic atraumatic. EOMI. PERRLA. Sclera anicteric and conjunctive are clear. NECK: Supple without masses LYMPHATICS: No cervical, supraclavicular, infraclavicular, axillary, or inguinal adenopathy. LUNGS: Clear to auscultation bilaterally with no wheezes, rhonchi, rales. HEART: Regular rate and rhythm. 2/6 systolic ejection murmur. No gallops or rubs. ABDOMEN: Soft, nontender, nondistended, without hepatosplenomegaly or masses. RECTAL: Mild perianal erythema. No external anal masses or skin lesions. Mildly diminished sphincter tone. No anal canal masses or ulceration. NEUROLOGIC: Alert. Speech is fluent and comprehension appears intact. Moves all 4 extremities well. Gait steady. PSYCHOLOGIC: Normal affect and mood.
[2023-07-07 09:07] VITALS: BP 134/70; PULSE 78; TEMP 36.6; O2SAT 98
[2024-07-09 09:39] VITALS: BP 123/89; PULSE 72; RESP 20; TEMP 36.4; O2SAT 98
--- NOTE | 2024-07-09 09:59 | P.RADPN_ITS ---
Follow Up Note Date/Time Date/Time: 07/09/24 09:59 Identifying Data Identifying Data: Jazmín Peñaloza is a 74 y.o. female with a clinical stage IIB (T3 N0 M0) approximately 5 cm anal cancer arising in the perianal region with extension in to the anal canal. 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 She completed a course of definitive chemoradiation therapy between 06/30/2020 and 08/07/2020 and returns now for routine follow-up. Interval History Interval History: Since she was last here, Ms. Peñaloza has been doing well with no new medical problems or concerns. She denies diarrhea, bowel incontinence, or rectal bleeding. She does have some urge urinary incontinence. She denies loss of appetite, unexplained weight loss, new or worsening dyspnea, persistent cough, chest pain, nausea or vomiting, abdominal/pelvic pain, new bone pain. There is no numbness, tingling, or pain in the gluteal or pelvic region. She has had no issues with her perianal skin. Denies pain. She sees Dr. Mon in Dec 2024; missed her visit last year. Last screening colonoscopy: * was due in Apr 2024 but did not schedule * 05/09/2022 - Normal mucosa throughout the colon. No obvious mass. Follow-up in 2 years was recommended. Due in April 2024. * 03/29/2021 - Nodule seen at the anal verge and biopsies were performed. Otherwise normal colonoscopy. Pathology demonstrated glandular antral mucosa with nonspecific acute and chronic inflammation and benign acute ulcer. Last CT Abd/Pelvis: * 07/06/2022 - No evidence of recurrent or metastatic cancer. Last screening mammogram: * 06/08/2022 - negative Last PAP test: * many years ago , no longer does routine Pap screening H&P - Exam General: GENERAL: Well-nourished, well-developed. Resting comfortably in exam room in no acute distress. NECK: Supple without masses LYMPHATICS: No cervical, supraclavicular, infraclavicular, axillary, or inguinal adenopathy. LUNGS: Clear to auscultation bilaterally with no wheezes, rhonchi, rales. HEART: Regular rate and rhythm. 2/6 systolic ejection murmur. No gallops or rubs. ABDOMEN: Soft, nontender, nondistended, without hepatosplenomegaly or masses. RECTAL: Mild perianal erythema, unchanged. No external anal masses or skin lesions. Mildly diminished sphincter tone. No anal canal masses or ulceration. NEUROLOGIC: Alert. Speech is fluent and comprehension appears intact. Moves all 4 extremities well. Gait steady. PSYCHOLOGIC: Normal affect and mood. Vital Signs: Vital Signs - 24 hr 07/09/24 09:39 Temperature 36.4 C Pulse Rate 72 Respiratory Rate 20 Blood Pressure 123/89 Pulse Oximetry 98 Assessment/Plan Assessment Assessment: Completed definitive chemoradiation therapy for anal canal cancer 4 years ago. No clinical evidence of recurrent tumor. Plan Plan: She sees Dr. Mon in Dec 2024. Missed her last planned screening colonoscopy in April 2024. She was encouraged to reschedule. Recommended yearly screening mammogram which she declined. No routine radiation oncology follow-up needed at this time. Margarita Billings Mai, MD This note was transcribed using 'Policard', a computerized voice recognition without a human textile machinery sales representative. This report may or may not have been adjusted for typographical, grammatical and syntax errors.
== END 2024-07-09 09:58 ==
LOC: AMCRADONC 09:30
PROVIDERS: PCP Internal Medicine; Referring Provider Internal Medicine Hematology & Oncology; Visit Provider Radiology Radiation Oncology
DX: C44.500 Unspecified malignant neoplasm of anal skin (principal); Z08 Encounter for follow-up examination after completed treatment for malignant neoplasm; R53.83 Other fatigue; K86.1 Other chronic pancreatitis; I10 Essential (primary) hypertension; E78.5 Hyperlipidemia, unspecified; N20.0 Calculus of kidney; Z87.891 Personal history of nicotine dependence; Z79.899 Other long term (current) drug therapy; E66.9 Obesity, unspecified; Z68.38 Body mass index [BMI] 38.0-38.9, adult; Z92.3 Personal history of irradiation; Z98.890 Other specified postprocedural states
CPT/HCPCS: 36415; 77280; 77290; 77300; 77301; 77334; 77336; 77338; 77386; 80048; 80053; 85025; 96409; 99211; 99212; 99213; G0463; J9280

== ENCOUNTER 2024-12-24 10:37 | Outpatient (CLI) | payer MEDICARE, SELFPAY ==
[2024-12-24 10:56] LABS: Hematocrit 45.7 % (37.0-47.0); Hemoglobin 14.1 g/dL (12.0-15.0); Immature Granulocyte Percent A 0.4 % (0-0.5); Lymphocytes Absolute Auto 1.32 K/mm3 (0.9-3.2); Mean Corpuscular HGB Conc 30.9 g/dl (32-36); Mean Corpuscular Hemoglobin 27.0 pg (26-34); Mean Corpuscular Volume 87.5 fl (80-100); Nucleated Red Blood Cells Absolute Auto 0.000 K/mm3 (0.0-0.012); Nucleated Red Blood Cells Perc 0.0 % (0.0-0.2); Platelet Count Result 299 k/mm3 (150-375); Red Blood Count 5.22 M/mm3 (4.2-5.4); White Blood Count 7.1 K/mm3 (4.5-10.0)
[2024-12-24 17:55] LABS: Anion Gap 12 mmol/L (4-12); Blood Urea Nitrogen 30 mg/dL (7-17); Calcium 10.5 mg/dL (8.4-10.2); Carbon Dioxide 26 mmol/L (22-30); Chloride 97 mmol/L (98-107); Estimated Glomerular Filt Rate 34; Glucose 90 mg/dL (65-110); Potassium 5.2 mmol/L (3.4-5.0); Sodium 135 mmol/L (137-145)
== END 2024-12-24 10:38 | disposition home or self-care (01) ==
LOC: ANHLAB 10:39
PROVIDERS: PCP Family Medicine; Visit Provider Internal Medicine Hematology & Oncology
DX: C21.0 Malignant neoplasm of anus, unspecified (principal)
CPT/HCPCS: 36415; 80048; 85025

== ENCOUNTER 2025-01-06 12:36 | Inpatient (IN) | payer MEDICARE, SELFPAY ==
--- NOTE | ~2025-01-06 | XR_ITS ---
EXAM/PROCEDURE: XR small bowel follow through HISTORY: sbo COMPARISON: CT exam from January 06 TECHNIQUE: Standard technique for small bowel follow-through performed. Patient administered 240 mL of thin barium through the gastric catheter followed by sequential follow-up KUB images. FINDINGS: On the hot mill supervisor image, several loops of distended small bowel present in the left hemiabdomen. Gastric catheter appears appropriately positioned. After administration of enteric contrast through the gastric catheter, contrast flows slowly through the jejunum and into the mid to distal ileum. On the 5 hour images, there is contrast in the distal small bowel but not clearly seen in the large bowel. No extravasation of contrast. No obvious masses seen. IMPRESSION: Findings concerning for small bowel obstruction. Ileus with delayed transit time could have a similar appearance. Recommend follow-up KUB later this evening or tomorrow morning if patient is managed conservatively. Reviewed, dictated and finalized at location A. TICAL SCIENCE PROFESSOR IMPRESSION: Findings concerning for small bowel obstruction. Ileus with delayed transit time could have a similar appearance. Recommend follow-up KUB later this evening or tomorrow morning if patient is ma naged conservatively.
--- NOTE | ~2025-01-06 | US_ITS ---
EXAM/PROCEDURE: US arterial ankle brachial ind HISTORY: Chronic diabetic ulcers COMPARISON: None available. TECHNIQUE: BO study FINDINGS: Right and left brachial systolic pressure readings are 116 and 121 Right posterior tibial and right dorsalis pressure readings are 102 and 98 Left posterior tibial and left dorsalis pedis pressure readings could not be obtained. Right and left great toe pressure readings are 69 and 89 Right BO 0.84 Left BO: Nondiagnostic Right and left TBI's: 0.57 and 0.74 Plethysmography appears somewhat widened bilaterally. IMPRESSION: 1. Nondiagnostic evaluation of the left BO. 2. Right BO of 0.84 suggest mild peripheral artery disease in the right lower extremity. IMPRESSION: No acute findings. Reviewed, dictated and finalized at location A. CAR ATTENDANT IMPRESSION: 1. Nondiagnostic evaluation of the left BO. 2. Right BO of 0.84 suggest mild peripheral artery disease in the right lower extremity. IMPRESSION: No acute findings.
--- NOTE | ~2025-01-06 | CT_ITS ---
EXAMINATION: CT abdomen pelvis wo con, 01/06/2025 17:30 CREATIVE INTERN HISTORY: upper abd pain, N/V, coffee ground emesis COMPARISON: No comparisons available. TECHNIQUE: CT scan of the abdomen and pelvis was performed without IV contrast. One or more of the following dose reduction techniques were used: automated exposure control, adjustment of the mA and/or kV according to patient size, use of iterative reconstruction technique. Unless otherwise stated, incidental findings do not require dedicated follow up imaging FINDINGS: CT abdomen: LUNG BASES: The lung bases demonstrate chronic changes with scattered calcified granulomas. LIVER: The liver demonstrates a heterogeneous appearance. SPLEEN: Unremarkable, no splenomegaly. KIDNEYS: Right Kidney: Right kidney midpole renal calculus 3 x 3 mm, no hydronephrosis. Left Kidney: Unremarkable. No calculi. No hydronephrosis ADRENAL GLANDS: Unremarkable. PANCREAS: Arising from the pancreatic body there is a cystic lesion measuring 1.4 x 1.5 cm. Additional pancreatic cystic lesions are noted with atrophy of the remaining pancreas. GALLBLADDER/BILIARY: Cholelithiasis. STOMACH AND ESOPHAGUS: Visualized stomach and esophagus within normal limits. BOWEL/MESENTERY: Moderate fecal content within the large bowel, the large bowel is relatively decompressed, there is no colitis or diverticulitis. Appendix normal. There is stranding within the mesentery with ill-defined areas of soft tissue density noted. Multiple dilated loops of small bowel the largest measuring 4 cm with decompressed small bowel loops noted in the pelvis. ADENOPATHY/RETROPERITONEUM: No lymphadenopathy. AORTA/VASCULATURE: Normal caliber aorta. FREE FLUID OR FREE AIR: Small amount of free fluid in the abdomen and pelvis.. CT pelvis: SOLID ORGANS/REPRODUCTIVE: Uterus atrophic. No adnexal mass. BLADDER: The bladder is distended. OSSEOUS STRUCTURES: Moderate degenerative changes of the lumbar spine. OVERLYING SOFT TISSUES: There is an umbilical hernia containing fluid. IMPRESSION: 1. Small bowel obstruction with transition point in the pelvis. 2. Ill-defined stranding within the mesentery which is nonspecific however carcinomatosis is not excluded. 3. Pancreatic lesions detailed above, contrast-enhanced MRI is recommended Reviewed, dictated and finalized at location P. TIVE INTERN IMPRESSION: 1. Small bowel obstruction with transition point in the pelvis. 2. Ill-defined stranding within the mesentery which is nonspecific however carc inomatosis is not excluded. 3. Pancreatic lesions detailed above, contrast-enhanced MRI is recommended
--- NOTE | ~2025-01-06 | XR_ITS ---
Examination: XR abdomen/kub 1V Clinical History: SBO Comparison: CT abdomen pelvis 01/06/2025 Technique: 3 view supine AP abdomen Findings: NG tube within stomach. Air-fluid levels cannot be assessed on supine projection. Persistent gaseous distention of small bowel loops. Mild colonic gas noted. No other acute abnormality. IMPRESSION: 1. Small bowel obstruction persists. Reviewed, dictated and finalized at location R. ROUTER OPERATOR
--- NOTE | ~2025-01-06 | XR_ITS ---
EXAMINATION: AP chest and upper abdomen DATE: 01/06/2025 INDICATION: NG tube placement TECHNIQUE: AP radiograph of lower chest and upper abdomen. were obtained. COMPARISON: CT scan dated 01/06/2025 FINDINGS: Tip of the nasogastric tube is noted within the body of the stomach. Lung chaparro to the extent visualized are normal. IMPRESSION: 1. Tip of the nasogastric tube is noted within the body of the stomach. Reviewed, dictated and finalized at location T. MACHINE OPERATOR
--- NOTE | ~2025-01-06 | XR_ITS ---
EXAM/PROCEDURE: XR abdomen/kub 1V HISTORY: SBO COMPARISON: Small bowel series from yesterday TECHNIQUE: KUB FINDINGS: Contrast flows through the large bowel into the rectosigmoid region. Gastric catheter noted. No large amount of free air or extravasation of contrast. Numerous loops of distended small bowel again noted. IMPRESSION: Delayed transit of contrast which does extend through the rectosigmoid region consistent with partial small bowel obstruction or ileus. Reviewed, dictated and finalized at location A. ICIAN AIDE IMPRESSION: Delayed transit of contrast which does extend through the rectosigmoid region c onsistent with partial small bowel obstruction or ileus.
--- NOTE | ~2025-01-06 | XR_ITS ---
EXAM/PROCEDURE: XR abdomen/kub 1V HISTORY: FU ON SBO COMPARISON: Small bowel series yesterday TECHNIQUE: KUB FINDINGS: Most of the contrast remains in the small bowel. In the right hemiabdomen, there appears to be contrast extending into the ascending colon/cecal region. No extravasation of contrast seen. IMPRESSION: Findings concerning for at least partial small bowel obstruction; correlate with follow-up KUB in 4 to 6 hours or sooner if clinically appropriate. Reviewed, dictated and finalized at location A. EM OPERATION SUPERINTENDENT IMPRESSION: Findings concerning for at least partial small bowel obstruction; correlate wit h follow-up KUB in 4 to 6 hours or sooner if clinically appropriate.
--- NOTE | ~2025-01-06 | MR_ITS ---
EXAM/PROCEDURE: MR abdomen wo/w con HISTORY: Pancreatic lesion COMPARISON: CT examination from January 06. TECHNIQUE: Pre and postcontrast enhanced multiplanar MRI of the abdomen performed. FINDINGS: Minimally complex 1.5 x 1.5 cm cystic lesion in the distal pancreatic body seen on image 21 series 4 with slight septal enhancement but otherwise benign and cystic in appearance. Subcentimeter lesions are seen toward the head of the pancreas image 22 series 4, image 20 series 4, and toward the distal body and tail region image 19 series 4. No clearly enhancing solid nodule or mass seen within the pancreas. Cholelithiasis noted with no gallbladder wall thickening or biliary ductal dilatation. There is a small amount of ascites with perihepatic and pericholecystic fluid noted. The common bile duct measures up to 7 mm in diameter with no discrete filling defects seen. Several loops of distended small bowel noted not grossly changed from the CT exam. No suspicious lesion seen in the liver spleen or kidneys. Aorta normal size. Obstructive bowel gas pattern again noted. IMPRESSION: 1. Minimally complex cystic lesions throughout the pancreas. Findings could be associated with intraductal papillary mucinous neoplasm or sequelae of pancreatitis. Correlation with follow-up MRI of the abdomen/pancreas in 6 months recommended. 2. Cholelithiasis with no obvious evidence of acute cholecystitis. Pericholecystic fluid present probably associated with ascites. 3. Obstructive appearing bowel gas pattern not grossly different from the January 06 CT exam. Reviewed, dictated and finalized at location A. MILL WORKER IMPRESSION: 1. Minimally complex cystic lesions throughout the pancreas. Findings could be associated with intraductal papillary mucinous neoplasm or sequelae of pancreat itis. Correlation with follow-up MRI of the abdomen/pancreas in 6 months recomm ended. 2. Cholelithiasis with no obvious evidence of acute cholecystitis. Pericholecys tic fluid present probably associated with ascites. 3. Obstructive appearing bowel gas pattern not grossly different from the Novem CT exam.
[2025-01-06 13:49] VITALS: BP 103/63; PULSE 94; RESP 16; TEMP 36.6; O2SAT 100
[2025-01-06 15:44] VITALS: BP 98/57; PULSE 95; RESP 16; TEMP 36.6; O2SAT 98
--- NOTE | 2025-01-06 16:11 | ED_ITS ---
HPI - Abdominal Pain General Chief Complaint: Abdominal Pain Stated Complaint: upper abd pain x 3 weeks. vomiting Time Seen by Provider: 01/06/25 16:12 Focused HPI: Patient is a 74 y/o female who presents to the ED with c/o N/V. Patient reports she has been having intermittent upper abdominal pain with nausea and vomiting for the past couple weeks. Reports symptoms have starting an over the past couple of days. Reports she has not been able to keep down any food or drink or her home medications over the past 2 days. Has had nausea and vomiting. States her emesis has consisted of dark black liquid, does appear somewhat coffee ground. Also reports diarrhea, dizziness with standing/exertion. Denies fevers. Patient takes ASA 81mg daily, no other blood thinners. GENERAL: Mildly ill-appearing, obese with BMI of 32.3, and in no acute distress. HEAD: Normocephalic, atraumatic. CHEST: Clear to auscultation. ?No respiratory distress. HEART: Regular rate and rhythm.? ABD: Mild diffuse tenderness throughout upper abdomen, large ventral wall hernia NEURO: ?Alert and oriented x3. Patient screened in triage and initial orders placed.? ?Additional care and disposition to be based upon?diagnostic testing and treatment. Source: patient Mode of arrival: ambulatory Limitations: no limitations Related Data Home Medications ?Medication ?Instructions ?Recorded ?Confirmed ?Last Taken ?Type aspirin 81 mg tablet,delayed 81 mg PO DAILY 12/01/22 1 03/08/24 01/04/25 20:00 History release (Adult Aspirin Regimen) potassium chloride 10 mEq See Rx Instructions .Route . COMPLEX 01/06/25 01/06/25 01/04/25 20:00 History capsule,extended release Allergies Allergy/AdvReac Type Severity Reaction Status Date / Time No Known Allergies Allergy Mild Verified 01/06/25 21:02 [facility] Past Medical History Medical History (Updated 01/07/25 @ 04:52 by Margarita Kraus APRN) Acute on chronic renal failure Chronic cutaneous venous stasis ulcer DM2 (diabetes mellitus, type 2) Chronic venous hypertension with ulcer Cardiomyopathy no echo on the chart Hypertension Hyperlipidemia Screening for colon cancer Postmenopausal Screening for breast cancer Benign essential hypertension Surgical History Surgical History H/O ventral hernia repair 09/23/20 Laparoscopic repair of large ventral hernia with 20 x 25 cm Symbotex mesh Hx of colonoscopy unable to complete due to transverse colon in a hernia History of right knee joint replacement Family History Family History Mother Family history of elevated blood lipids Father Family history of diabetes mellitus in first degree relative Family history of coronary artery disease Cerebrovascular accident Family history of Alzheimer's disease Sibling Hodgkin disease Other Diabetes mellitus Family history of hypercholesterolemia Social History Social History (Updated 01/07/25 @ 04:43 by Margarita Kraus APRN) Social History: The patient stated that she is and has 3 children. 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 Her is the durable power workers compensation attorney for healthcare. Code status: Full code Smoking packs per day: 0.5 Smoking cigarettes per day: 10.0 Years smoked: 3 Smoking pack-years: 1.50 Smoking status: Never smoker Tobacco type: cigarettes Second hand tobacco smoke exposure: Yes Smoking end date: 02/20/71 Additional smoking assessment comments: smoked only socially Alcohol intake: never Alcohol use details: 3 times per year Substance use: never Substance use type: does not use Lack of Transportation: No Lack of Food: Never True Current Housing: I Have Housing Concerned About Future Housing: No Difficulty Paying Gas/Electric Bills: No Difficulty Paying for Meds: No Currently Unemployed: No Education: High School Diploma/GED Difficulty w/ Childcare or Family Care: No Living arrangements: with family Occupation/Education: retired Gender identity (if verbalized by the patient): Female Sexual Orientation (if Verbalized by the Patient): Straight or Heterosexual Spiritual care concerns: No Course Vital Signs Vital signs: Vital Signs Temperature 97.8 F 01/06/25 13:49 Pulse Rate 94 01/06/25 13:49 Respiratory Rate 16 01/06/25 13:49 Blood Pressure 103/63 01/06/25 13:49 Pulse Oximetry 100 01/06/25 13:49 Oxygen Delivery Room Air 01/06/25 13:49 Temperature 97.1 F L 01/07/25 04:28 Pulse Rate 89 01/07/25 04:28 Respiratory Rate 16 01/07/25 04:28 Blood Pressure 101/49 L 01/07/25 04:28 Pulse Oximetry 95 01/07/25 04:28 Oxygen Delivery Room Air 01/06/25 16:50 MDM - Abdominal Pain MDM Narrative Medical decision making narrative: MSE by TYSHAWN in triage Lab Data 01/07/25 05:39 01/07/25 05:39 Labs: Lab Results 01/06/25 Range/Units 17:01 WBC 10.4 H (4.5-10.0) K/mm3 RBC 5.29 (4.2-5.4) M/mm3 Hgb 14.2 (12.0-15.0) g/dL Hct 45.0 (37.0-47.0) % MCV 85.1 (80-100) fl MCH 26.8 (26-34) pg MCHC 31.6 L (32-36) g/dl RDW 14.7 H (11.5-14.5) % Plt Count 376 H (150-375) k/mm3 MPV 9.5 (7.4-10.4) fl Immature Gran % (Auto) Not Reportable Neut % (Auto) Not Reportable Lymph % (Auto) Not Reportable [place] % (Auto) Not Reportable Eos % (Auto) Not Reportable Baso % (Auto) Not Reportable Lymph # (Auto) Not Reportable [place] # (Auto) Not Reportable Eos # (Auto) Not Reportable Baso # (Auto) Not Reportable Abs Immat Gran (auto) Not Reportable Absolute Neuts (auto) Not Reportable Absolute Nucleated RBC Not Reportable Total Counted 100 Neutrophils % (Manual) 15 L (46-73) % Band Neutrophils % 53 H (0-6) % Lymphocytes % (Manual) 15.0 L (18-44) % Monocytes % (Manual) 15 H (3-9) % Eosinophils % (Manual) 1 (0-4) % Metamyelocytes % 1 % Nucleated RBC % Not Reportable Abs Neuts (Manual) 7.07 H (1.3-6.7) K/mm3 Abs Lymphs (Manual) 1.56 (1.1-4.5) K/mm3 Abs Monocytes (Manual) 1.56 H (0.1-0.90) K/mm3 Absolute Eos (Manual) 0.10 (0.02-0.50) K/mm3 Platelet Estimate Slightly increased (Adequate) Hypochromasia 1+ Anisocytosis 1+ Schistocytes None seen PT 15.9 H (11.1-14.7) Seconds INR 1.3 APTT 31.2 (22.3-36.8) Seconds Sodium 131 L (137-145) mmol/L Potassium 5.1 H (3.4-5.0) mmol/L Chloride 88 L (98-107) mmol/L Carbon Dioxide 26 (22-30) mmol/L Anion Gap 17 H (4-12) mmol/L BUN 62 H D (7-17) mg/dL Creatinine 2.47 H (0.7-1.0) mg/dL Estim Creat Clear Calc 21 ml/min Estimated GFR 19 L (59 - ) Glucose 176 H (65-110) mg/dL Lactic Acid 1.8 (0.7-2.0) mmol/L Calcium 10.4 H (8.4-10.2) mg/dL Total Bilirubin 0.9 (0.2-1.3) mg/dL AST 21 (14-36) U/L ALT 21 (6-35) U/L Alkaline Phosphatase 146 H (38-126) U/L Total Protein 8.6 H (6.3-8.2) g/dL Albumin 4.6 (3.5-5.1) g/dL Blood Type A Negative Antibody Screen Negative Imaging Data Radiologist's impression: ITS Impressions Abdomen/Pelvis CT 01/06/25 17:52 IMPRESSION: 1. Small bowel obstruction with transition point in the pelvis. 2. Ill-defined stranding within the mesentery which is nonspecific however carcinomatosis is not excluded. 3. Pancreatic lesions detailed above, contrast-enhanced MRI is recommended Abdomen X-Ray 01/06/25 20:13 IMPRESSION: 1. Tip of the nasogastric tube is noted within the body of the stomach. Discharge Plan Discharge Clinical Impression: SBO (small bowel obstruction) Patient Disposition: Still a Patient Condition: Guarded Prognosis
--- NOTE | 2025-01-06 16:17 | ECG_ITS ---
Test Date: 2025-01-06 17:26:23 Measurements Intervals [place] Rate: 98 P: 33 DC: 171 QRS: -47 QRSD: 99 T: 104 QT: 330 QTc: 422 Interpretive Statements SINUS RHYTHM VOLTAGE CRITERIA FOR LVH, CONSIDER NORMAL VARIANT INFERIOR MYOCARDIAL INFARCTION , PROBABLY OLD ANTEROLATERAL MYOCARDIAL INFARCTION , OF INDETERMINATE AGE Electronically Signed On 01-06-2025 20:05:07 PLEAT TAPER by Hayden Sneed D.O
[2025-01-06 16:49] VITALS: BP 139/76; PULSE 101; RESP 16; O2SAT 95
[2025-01-06 16:50] VITALS: BP 139/76; PULSE 99; RESP 18; O2SAT 98
[2025-01-06] MEDS: ONDANSETRON INJ 4 MG/2 ML VIAL IV PUSH (16:55)
[2025-01-06] MEDS: PANTOPRAZOLE SODIUM IV 40 MG VIAL IV PUSH (16:55)
--- NOTE | 2025-01-06 17:01 | CONSULT_PTH ---
PATIENT: Jazmín Peñaloza LOC: [id number] U#:[id number] AGE/SX: 74/F ROOM: 314 RE01/06/[address]: Griselda Wolfe APRN : 1950 BED: 01 DIS: 01/12/2025 SPEC #: [id number] RECD: 01/06/25 21:37 STATUS: JOSELITO REMiladys #: [id number] EDILSON: 01/06/25 17:[address]: Shay Almeida DEPT: [facility] [place] Consult RECD BY: Joaquin Hanna MLT, ([facility]) ENTERED: 01/06/25 21:38 SP TYPE: Consult OTHR DR: MD Jonnie Lr MD Tissues: A - Smear Procedures: Hematology Consult
[2025-01-06 17:14] LABS: Hematocrit 45.0 % (37.0-47.0); Hemoglobin 14.2 g/dL (12.0-15.0); Mean Corpuscular HGB Conc 31.6 g/dl (32-36); Mean Corpuscular Hemoglobin 26.8 pg (26-34); Mean Corpuscular Volume 85.1 fl (80-100); Platelet Count Result 376 k/mm3 (150-375); Red Blood Count 5.29 M/mm3 (4.2-5.4); White Blood Count 10.4 K/mm3 (4.5-10.0)
[2025-01-06 17:25] LABS: Alanine Aminotransferase 21 U/L (6-35); Albumin Level 4.6 g/dL (3.5-5.1); Alkaline Phosphatase 146 U/L (38-126); Anion Gap 17 mmol/L (4-12); Aspartate Amino Transferase 21 U/L (14-36); Bilirubin,Total 0.9 mg/dL (0.2-1.3); Blood Urea Nitrogen 62 mg/dL (7-17); Calcium 10.4 mg/dL (8.4-10.2); Carbon Dioxide 26 mmol/L (22-30); Chloride 88 mmol/L (98-107); Estimated CRCL calculation 21 ml/min; Estimated Glomerular Filt Rate 19; Glucose 176 mg/dL (65-110); INR 1.3; Partial Thromboplastin Time 31.2 Seconds (22.3-36.8); Potassium 5.1 mmol/L (3.4-5.0); Prothrombin Time 15.9 Seconds (11.1-14.7); Sodium 131 mmol/L (137-145); Total Protein 8.6 g/dL (6.3-8.2)
[2025-01-06 17:31] VITALS: BP 102/61; PULSE 100; RESP 18; O2SAT 92
[2025-01-06] MEDS: SODIUM CHLORIDE 0.9% IV 1,000 ML 999 ML IV CONT ×2 (17:51→18:31)
--- NOTE | 2025-01-06 17:58 | ED.ABDPAIN ---
HPI - Abdominal Pain General Chief Complaint: Abdominal Pain Stated Complaint: upper abd pain x 3 weeks. vomiting Time Seen by Provider: 01/06/25 16:12 Source: patient Mode of arrival: ambulatory Limitations: no limitations History of Present Illness HPI narrative: ABDOMINAL PAIN FOR THE LAST 2-3 WEEKS ASSOCIATED WITH INTERMITTENT NAUSEA AND VOMITING. SHE DENIES ANY FEVER, CHILLS, DIARRHEA OR CONSTIPATION. HISTORY OF DIABETES HYPERTENSION HYPERLIPIDEMIA BABY ASPIRIN ONCE A DAY, NOT ON ANTICOAGULANT MEDICATION PATIENT IS TELLING ME THAT SHE WAS NOT ABLE TO EAT OR DRINK OVER THE LAST FEW DAYS. Related Data Home Medications ?Medication ?Instructions ?Recorded ?Confirmed ?Last Taken ?Type mometasone 0.1 % topical cream 1 applic topical DAILY PRN Itching 03/31/22 07/07/23 Unknown History aspirin 81 mg tablet,delayed 81 mg PO DAILY 12/01/22 07/07/23 Unknown History release (Adult Aspirin Regimen) Allergies Allergy/AdvReac Type Severity Reaction Status Date / Time No Known Allergies Allergy Mild Verified 01/06/25 13:48 Review of Systems Review of Systems: All systems reviewed & are unremarkable except as noted in HPI and below PMFSH Past Medical History Medical History Cardiomyopathy no echo on the chart Hypertension Hyperlipidemia Screening for colon cancer Postmenopausal Screening for breast cancer Benign essential hypertension Surgical History Surgical History H/O ventral hernia repair 09/23/20 Laparoscopic repair of large ventral hernia with 20 x 25 cm Symbotex mesh Hx of colonoscopy unable to complete due to transverse colon in a hernia History of right knee joint replacement Family History Family History Mother Family history of elevated blood lipids Father Family history of diabetes mellitus in first degree relative Family history of coronary artery disease Cerebrovascular accident Family history of Alzheimer's disease Sibling Hodgkin disease Other Diabetes mellitus Family history of hypercholesterolemia Social History Social History Smoking packs per day: 0.5 Smoking cigarettes per day: 10.0 Years smoked: 3 Smoking pack-years: 1.50 Smoking status: Former smoker Tobacco type: cigarettes Second hand tobacco smoke exposure: Yes Smoking end date: 02/20/71 Additional smoking assessment comments: smoked only socially Alcohol intake: current Alcohol use details: 3 times per year Substance use: never Substance use type: does not use Lack of Transportation: No Lack of Food: Never True Current Housing: I Have Housing Concerned About Future Housing: No Difficulty Paying Gas/Electric Bills: No Difficulty Paying for Meds: No Currently Unemployed: No Education: High School Diploma/GED Difficulty w/ Childcare or Family Care: No Living arrangements: with family Occupation/Education: retired Gender identity (if verbalized by the patient): Female Sexual Orientation (if Verbalized by the Patient): Straight or Heterosexual Spiritual care concerns: Yes (Episcopal) Exam Narrative: GENERAL APPEARANCE: WELL-DEVELOPED, WELL-NOURISHED SKIN: NORMAL COLOR HEAD: NORMOCEPHALIC, NONTRAUMATIC EYES: CLEAR CONJUNCTIVA ENT: OROPHARYNX NORMAL, EARS NORMAL, NOSE NORMAL NECK: SUPPLE, NONTENDER CHEST AND RESPIRATORY: AIRWAY PATENT, NO RESPIRATORY DISTRESS, NO ACCESSORY MUSCLE USE HEART: REGULAR RATE/RHYTHM ABDOMEN: ABDOMINAL DISTENSION, QUITE BOWEL SOUNDS, UMBILICAL HERNIA. VASCULAR: NORMAL PERIPHERAL PULSES, NORMAL CAPILLARY REFILL. MUSCULOSKELETAL: NORMAL RANGE OF MOTION, NONTENDER BACK NEUROLOGIC: ALERT AND ORIENTED ?3, VACUUM FRAME OPERATOR IS NORMAL TESTED, NO GROSS MOTOR DEFICIT Course Vital Signs Vital signs: Vital Signs Temperature 36.6 C 01/06/25 13:49 Pulse Rate 94 01/06/25 13:49 Respiratory Rate 16 01/06/25 13:49 Blood Pressure 103/63 01/06/25 13:49 Pulse Oximetry 100 01/06/25 13:49 Oxygen Delivery Room Air 01/06/25 13:49 Temperature 36.6 C 01/06/25 15:44 Pulse Rate 100 01/06/25 17:31 Respiratory Rate 18 01/06/25 17:31 Blood Pressure 102/61 01/06/25 17:31 Pulse Oximetry 92 01/06/25 17:31 Oxygen Delivery Room Air 01/06/25 16:50 MDM - Abdominal Pain MDM Narrative Medical decision making narrative: PATIENT PRESENTS WITH ABDOMINAL PAIN INTERMITTENT NAUSEA AND VOMITING VITAL SIGNS ARE STABLE PHYSICAL EXAMINATION CONSISTENT WITH ABDOMINAL DISTENSION AND MILD DIFFUSE TENDERNESS AND NO BOWEL SOUNDS DIFFERENTIAL DIAGNOSIS SMALL-BOWEL OBSTRUCTION, CONSTIPATION, DIVERTICULITIS, COLITIS, INTRA-ABDOMINAL MALIGNANCY, CHOLECYSTITIS, APPENDICITIS BLOOD WORKUP TODAY INCLUDES CBC, CMP, LIPASE, LACTIC ACID SHOWED WBC 10.4, SODIUM 131, POTASSIUM 5.1, BUN 62, CREATININE 2.4, CT ABDOMEN AND PELVIS WITH IV CONTRAST SHOWED SMALL-BOWEL OBSTRUCTION DIAGNOSIS SMALL-BOWEL OBSTRUCTION AND TAMIKO ADMIT TO HOSPITALIST, DISCUSSED WITH THE SURGEON ON-CALL Differential Diagnosis Differential diagnosis: Likely other (YOU ABOVE) Medical Records Attestation: I reviewed the patient's medical records. Lab Data Attestation: I reviewed the patient's lab results. 01/06/25 17:01 01/06/25 17:01 Labs: Lab Results 01/06/25 Range/Units 17:01 WBC 10.4 H (4.5-10.0) K/mm3 RBC 5.29 (4.2-5.4) M/mm3 Hgb 14.2 (12.0-15.0) g/dL Hct 45.0 (37.0-47.0) % MCV 85.1 (80-100) fl MCH 26.8 (26-34) pg MCHC 31.6 L (32-36) g/dl RDW 14.7 H (11.5-14.5) % Plt Count 376 H (150-375) k/mm3 MPV 9.5 (7.4-10.4) fl Immature Gran % (Auto) Not Reportable Neut % (Auto) Not Reportable Lymph % (Auto) Not Reportable [place] % (Auto) Not Reportable Eos % (Auto) Not Reportable Baso % (Auto) Not Reportable Lymph # (Auto) Not Reportable [place] # (Auto) Not Reportable Eos # (Auto) Not Reportable Baso # (Auto) Not Reportable Abs Immat Gran (auto) Not Reportable Absolute Neuts (auto) Not Reportable Absolute Nucleated RBC Not Reportable Total Counted 100 Neutrophils % (Manual) 15 L (46-73) % Band Neutrophils % 53 H (0-6) % Lymphocytes % (Manual) 15.0 L (18-44) % Monocytes % (Manual) 15 H (3-9) % Eosinophils % (Manual) 1 (0-4) % Metamyelocytes % 1 % Nucleated RBC % Not Reportable Abs Neuts (Manual) 7.07 H (1.3-6.7) K/mm3 Abs Lymphs (Manual) 1.56 (1.1-4.5) K/mm3 Abs Monocytes (Manual) 1.56 H (0.1-0.90) K/mm3 Absolute Eos (Manual) 0.10 (0.02-0.50) K/mm3 Platelet Estimate Slightly increased (Adequate) Hypochromasia 1+ Anisocytosis 1+ Schistocytes None seen PT 15.9 H (11.1-14.7) Seconds INR 1.3 APTT 31.2 (22.3-36.8) Seconds Sodium 131 L (137-145) mmol/L Potassium 5.1 H (3.4-5.0) mmol/L Chloride 88 L (98-107) mmol/L Carbon Dioxide 26 (22-30) mmol/L Anion Gap 17 H (4-12) mmol/L BUN 62 H D (7-17) mg/dL Creatinine 2.47 H (0.7-1.0) mg/dL Estim Creat Clear Calc 21 ml/min Estimated GFR 19 L (59 - ) Glucose 176 H (65-110) mg/dL Lactic Acid 1.8 (0.7-2.0) mmol/L Calcium 10.4 H (8.4-10.2) mg/dL Total Bilirubin 0.9 (0.2-1.3) mg/dL AST 21 (14-36) U/L ALT 21 (6-35) U/L Alkaline Phosphatase 146 H (38-126) U/L Total Protein 8.6 H (6.3-8.2) g/dL Albumin 4.6 (3.5-5.1) g/dL Blood Type A Negative Antibody Screen Negative Imaging Data Radiologist's impression: ITS Impressions Abdomen/Pelvis CT 01/06/25 17:52 IMPRESSION: 1. Small bowel obstruction with transition point in the pelvis. 2. Ill-defined stranding within the mesentery which is nonspecific however carcinomatosis is not excluded. 3. Pancreatic lesions detailed above, contrast-enhanced MRI is recommended Critical Care Time Critical Care Time Critical Care Time: Yes Total Critical Care Time: 30 Discharge Plan Discharge Clinical Impression: SBO (small bowel obstruction) Patient Disposition: Still a Patient Condition: Guarded Prognosis Patient Language: Yoruba Prescriptions: No Action mometasone 0.1 % cream 1 applic topical DAILY PRN (Reason: Itching) aspirin [Adult Aspirin Regimen] 81 mg tablet,delayed release (DR/EC) 81 mg PO DAILY potassium chloride 10 mEq capsule, extended release See Rx Instructions .ROUTE .COMPLEX Qty: 90 1RF Dose Instruction: TAKE 1 CAPSULE BY MOUTH EVERY DAY Rx Instructions: TAKE 1 CAPSULE BY MOUTH EVERY DAY metoprolol succinate 25 mg tablet extended release 24 hr See Rx Instructions .ROUTE .COMPLEX Qty: 45 1RF Dose Instruction: TAKE 1/2 TABLET BY MOUTH EVERY DAY AT BEDTIME Rx Instructions: TAKE 1/2 TABLET BY MOUTH EVERY DAY AT BEDTIME metformin 1,000 mg tablet See Rx Instructions .ROUTE .COMPLEX Qty: 180 1RF Dose Instruction: TAKE 1 TABLET BY MOUTH TWICE A DAY Rx Instructions: TAKE 1 TABLET BY MOUTH TWICE A DAY furosemide 40 mg tablet See Rx Instructions .ROUTE .COMPLEX Qty: 90 1RF Dose Instruction: TAKE 1 TABLET BY MOUTH EVERY DAY IN THE MORNING Rx Instructions: TAKE 1 TABLET BY MOUTH EVERY DAY IN THE MORNING irbesartan 300 mg tablet See Rx Instructions .ROUTE .COMPLEX Qty: 90 1RF Dose Instruction: TAKE 1 TABLET BY MOUTH EVERY DAY Rx Instructions: TAKE 1 TABLET BY MOUTH EVERY DAY glimepiride 2 mg tablet See Rx Instructions .ROUTE .COMPLEX Qty: 135 1RF Dose Instruction: TAKE 1 TABLET BY MOUTH IN THE MORNING AND 0.5 TABLETS IN THE EVENING Rx Instructions: TAKE 1 TABLET BY MOUTH IN THE MORNING AND 0.5 TABLETS IN THE EVENING atorvastatin 10 mg tablet See Rx Instructions .ROUTE .COMPLEX Qty: 90 1RF Dose Instruction: TAKE 1 TABLET BY MOUTH EVERY DAY Rx Instructions: TAKE 1 TABLET BY MOUTH EVERY DAY Jardiance 25 mg tablet 25 mg PO QAM Qty: 90 1RF Follow-up/Referrals: Jonnie Barrow MD [Primary Care Provider, Family Practice]
[2025-01-06 18:10] LABS: Band Neutrophils Percent 53 % (0-6); Eosinophils Absolute Manual 0.10 K/mm3 (0.02-0.50); Eosinophils Percent Manual 1 % (0-4); Lymphocytes Absolute Manual 1.56 K/mm3 (1.1-4.5); Lymphocytes Percent Manual 15.0 % (18-44); Metamyelocytes Percent 1 %; Monocytes Absolute Manual 1.56 K/mm3 (0.1-0.90); Monocytes Percent Manual 15 % (3-9); Neutrophils Absolute Manual 7.07 K/mm3 (1.3-6.7); Neutrophils Percent Manual 15 % (46-73); Schistocytes None Seen; Total Cells Counted 100
[2025-01-06 18:11] LABS: Anisocytosis 1+; Hypochromasia 1+
[2025-01-06] MEDS: SODIUM CHLORIDE 0.9% IV 1,000 ML 150 ML IV CONT (19:45)
--- NOTE | 2025-01-06 20:06 | WPCEDHO ---
ED Hand Off Checklist All vitals saved: Y IV Site documented: Y All med administrations documented: Y Triage Note Triage Note Pt to ED co abd pain that she 01/06/25 16:50 states has been going on for around 3 weeks. Pt endorses nausea. Pt states that she had black coffee ground emesis this morning. Allergies No Known Allergies Allergy (Mild, Verified 01/06/25 13:48) CONFIRMS, NKA ON ADMISSION TO PRE[facility] 06/12/06 Family History (Last Reviewed 01/06/25 @ 19:13 by Nitin Copeland MD) Mother Family history of elevated blood lipids Father Family history of diabetes mellitus in first degree relative Family history of coronary artery disease Cerebrovascular accident Family history of Alzheimer's disease Sibling Hodgkin disease Other Diabetes mellitus Family history of hypercholesterolemia Active Medications including assessments/comments Sodium Chloride (Normal Saline Iv) 1,000 mls @ 150 mls/hr IV CONT .Q6H40M ANTIONETTE Last Admin: 01/06/25 19:45 Dose: 150 mls/hr Documented By: ROSAK Infusion/Titration Document 01/06/25 19:45 HNK (Rec: 01/06/25 19:45 HNK [id number]) Intake IV Site Peripheral Access Right Antecubital Container Volume 1,000 Waste Amount 0 Dosing Infusion Rate 150 Cumulative Dose Not Applicable Increase/Decrease Started Elapsed Time Elapsed Time ( 0m minutes) Administered/Completed Medications Discontinued Medications Sodium Chloride (Normal Saline Iv) 1,000 mls @ 999 mls/hr IV CONT .Q1H1M STA Stop: 01/06/25 18:37 Last Infusion: 01/06/25 18:30 Dose: Infused Documented By: Admin: 01/06/25 17:51 Dose: 999 mls/hr Documented By: ANT Sodium Chloride (Normal Saline Iv) 1,000 mls @ 999 mls/hr IV CONT .Q1H1M STA Stop: 01/06/25 18:59 Last Infusion: 01/06/25 19:16 Dose: Infused Documented By: Admin: 01/06/25 18:31 Dose: 999 mls/hr Documented By: ANT Ondansetron HCl (Ondansetron Inj 4 Mg/2 Ml Vial) 4 mg IV PUSH ONCE STA Stop: 01/06/25 16:18 Last Admin: 01/06/25 16:55 Dose: 4 mg Documented By: ANT Pantoprazole Sodium (Pantoprazole Sodium Iv 40 Mg Vial) 40 mg IV PUSH ONCE STA Stop: 01/06/25 16:18 Last Admin: 01/06/25 16:55 Dose: 40 mg Documented By: ANT Interventions/Assessments IV / Saline Lock, Insert Start: 01/06/25 16:17 Freq: STAT Status: Active Protocol: Document 01/06/25 16:49 ANT (Rec: 01/06/25 16:50 ANT [id number]) IV Assessment Peripheral Access Right Antecubital IV Catheter Access Initiated IV Insertion Date 01/06/25 IV Insertion Time 16:50 Catheter Gauge 20 IV Insertion 1 Attempts Ultrasound Used for No Placement IV Site Assessment WNL IV Care and WNL Maintenance PA: Gastrointestinal Assessment Start: 01/06/25 12:37 Freq: Status: Active Protocol: Document 01/06/25 16:52 ANT (Rec: 01/06/25 16:54 ANT [id number]) GI Assessment Gastrointestinal Diarrhea,Pain,Vomiting Symptoms Description Firm,Tender All Quadrants Bowel Sounds Hypoactive Pattern Diarrhea Date of Last Bowel 01/02/25 Movement Last Vital Signs Temperature 97.8 F 01/06/25 15:44 Pulse Rate 100 01/06/25 17:31 Respiratory Rate 18 01/06/25 17:31 Pulse Oximetry 92 01/06/25 17:31 Blood Pressure 102/61 01/06/25 17:31 Blood Pressure Mean 74 01/06/25 17:31 Oxygen Delivery Room Air 01/06/25 16:50 Weight 93.6 kg 01/06/25 16:50 Last Result - Abnormals Only WBC 10.4 K/mm3 (4.5-10.0) H 01/06/25 17:01 MCHC 31.6 g/dl (32-36) L 01/06/25 17:01 RDW 14.7 % (11.5-14.5) H 01/06/25 17:01 Plt Count 376 k/mm3 (150-375) H 01/06/25 17:01 Neutrophils % (Manual) 15 % (46-73) L 01/06/25 17:01 Band Neutrophils % 53 % (0-6) H 01/06/25 17:01 Lymphocytes % (Manual) 15.0 % (18-44) L 01/06/25 17:01 Monocytes % (Manual) 15 % (3-9) H 01/06/25 17:01 Abs Neuts (Manual) 7.07 K/mm3 (1.3-6.7) H 01/06/25 17:01 Abs Monocytes (Manual) 1.56 K/mm3 (0.1-0.90) H 01/06/25 17:01 PT 15.9 Seconds (11.1-14.7) H 01/06/25 17:01 Sodium 131 mmol/L (137-145) L 01/06/25 17:01 Potassium 5.1 mmol/L (3.4-5.0) H 01/06/25 17:01 Chloride 88 mmol/L (98-107) L 01/06/25 17:01 Anion Gap 17 mmol/L (4-12) H 01/06/25 17:01 BUN 62 mg/dL (7-17) H D 01/06/25 17:01 Creatinine 2.47 mg/dL (0.7-1.0) H 01/06/25 17:01 Estimated GFR 19 (59-) L 01/06/25 17:01 Glucose 176 mg/dL (65-110) H 01/06/25 17:01 Calcium 10.4 mg/dL (8.4-10.2) H 01/06/25 17:01 Alkaline Phosphatase 146 U/L (38-126) H 01/06/25 17:01 Total Protein 8.6 g/dL (6.3-8.2) H 01/06/25 17:01 Most Recent Suicide Severity Rating Suicide Severity Rating NO RISK INDICATED 01/06/25 16:50
[2025-01-06 20:51] VITALS: BMI 32.1
--- NOTE | 2025-01-06 20:57 | ADMGEN ---
This patient, Jazmín Peñaloza, was admitted to 3 [facility] Surg Room 317-02. Patient/family oriented to hospital policies and general routines including ID bracelet, bed and alarms, visiting hours, pain management, procedures, bathroom and other care routines, personal items, smoking policy, room service/diet, and visiting hours. Information on how to activate the Rapid Response Team has been discussed. Patient/Family are encouraged to report perceived risks to care and to ask questions if they do not understand what they are told or what they should do.
[2025-01-06 21:55] VITALS: BP 118/78
--- NOTE | 2025-01-07 04:26 | P.HP_ITS ---
H&P: HPI History of Present Illness Date/Time: 01/07/25 04:26 Chief Complaint: Abdominal pain Narrative: This is a 74-year-old female patient who has been complaining of abdominal pain for the last 2-3 weeks. She has had intermittent nausea vomiting with this as well. The patient denies any fever, diarrhea, chills or constipation. Abdominal CT was read as a followingIMPRESSION: 1. Small bowel obstruction with transition point in the pelvis. 2. Ill-defined stranding within the mesentery which is nonspecific however carcinomatosis is not excluded. 3. Pancreatic lesions detailed above, contrast-enhanced MRI is recommended The patient was started on IV fluid and an NG-tube was placed. She was given Zofran and Protonix in the emergency room. Her white count is noted to be 10.4. Sodium 131. Potassium 5.1. Chloride 88. Anion gap is 17. BUN 62 and creatinine 2.47. Random glucose was 176 and her estimated GFR 19. Calcium level 10.4. Her abdominal x-ray shows the tip of the NG tube noted in the body of the stomach. Surgery has been consulted. The patient is being admitted to inpatient status on the date of service of 01/07/2025. Review of Systems Constitutional: Constitutional: Reports as per HPI and Reports no additional constitutional complaints Eyes: Eyes: Reports as per HPI and Reports no additional eye complaints ENT: Reports system reviewed and no additional complaints, except as do cumented and Reports Normal hearing present Cardiovascular: Cardiovascular: Reports no additional cardiovascular complaints Respiratory: Respiratory: Reports as per HPI and Reports no additional respiratory complaints Gastrointestinal: Gastrointestinal: Reports as per HPI and Reports no additional gastrointestinal complaints Genitourinary: Genitourinary: Reports no additional female genitourinary complaints Musculoskeletal: Musculoskeletal: Reports no additional musculoskeletal complaints Integumentary/Breasts: Skin/Breast: Reports system reviewed and no additional complaints, except as docu Neurologic: Reports system reviewed and no additional complaints, except as documented and Reports Normal hearing present Psychiatric: Psychiatric: Reports no additional psychiatric complaints and Reports as per HPI Hematologic/Lymphatic: Hematologic/Lymphatic: Reports no additional hematologic/lymphatic complaints Allergic/Immunologic: Allergic/Immunologic: Reports no additional allergic/immunologic complaints PMFSH Past Medical History Medical History Acute on chronic renal failure Chronic cutaneous venous stasis ulcer DM2 (diabetes mellitus, type 2) Chronic venous hypertension with ulcer Cardiomyopathy no echo on the chart Hypertension Hyperlipidemia Screening for colon cancer Postmenopausal Screening for breast cancer Benign essential hypertension Surgical History Surgical History H/O ventral hernia repair 09/23/20 Laparoscopic repair of large ventral hernia with 20 x 25 cm Symbotex mesh Hx of colonoscopy unable to complete due to transverse colon in a hernia History of right knee joint replacement Family History Family History Mother Family history of elevated blood lipids Father Family history of diabetes mellitus in first degree relative Family history of coronary artery disease Cerebrovascular accident Family history of Alzheimer's disease Sibling Hodgkin disease Other Diabetes mellitus Family history of hypercholesterolemia Social History Social History Social History: The patient stated that she is and has 3 children. She is retired from being a [employer]. Her is the durable power workers compensation defense attorney for healthcare. Code status: Full code Smoking packs per day: 0.5 Smoking cigarettes per day: 10.0 Years smoked: 3 Smoking pack-years: 1.50 Smoking status: Never smoker Tobacco type: cigarettes Second hand tobacco smoke exposure: Yes Smoking end date: 02/20/71 Additional smoking assessment comments: smoked only socially Alcohol intake: never Alcohol use details: 3 times per year Substance use: never Substance use type: does not use Lack of Transportation: No Lack of Food: Never True Current Housing: I Have Housing Concerned About Future Housing: No Difficulty Paying Gas/Electric Bills: No Difficulty Paying for Meds: No Currently Unemployed: No Education: High School Diploma/GED Difficulty w/ Childcare or Family Care: No Living arrangements: with family Occupation/Education: retired Gender identity (if verbalized by the patient): Female Sexual Orientation (if Verbalized by the Patient): Straight or Heterosexual Spiritual care concerns: No Meds Home Medications and Allergies Home Medications ?Medication ?Instructions ?Recorded ?Confirmed ?Type aspirin 81 mg tablet,delayed 81 mg PO DAILY 12/01/22 1 03/08/24 History release (Adult Aspirin Regimen) metoprolol succinate 25 mg See Rx Instructions .Route 07/25/24 01/06/25 Rx tablet,extended release 24 hr .COMPLEX #45 tabs atorvastatin 10 mg tablet See Rx Instructions .Route 0 10/23/24 01/06/25 Rx .COMPLEX #90 tabs empagliflozin 25 mg tablet 25 mg PO QAM #90 tabs 10/2301/06/25 Rx (Jardiance) furosemide 40 mg tablet See Rx Instructions .Route 0 10/23/24 01/06/25 Rx .COMPLEX #90 tabs glimepiride 2 mg tablet See Rx Instructions .Route 0 10/23/24 01/06/25 Rx .COMPLEX #135 tabs irbesartan 300 mg tablet See Rx Instructions .Route 0 10/23/24 01/06/25 Rx .COMPLEX #90 tabs metformin 1,000 mg tablet See Rx Instructions .Route 0 10/23/24 01/06/25 Rx .COMPLEX #180 tabs potassium chloride 10 mEq See Rx Instructions .Route . COMPLEX 01/06/25 01/06/25 History capsule,extended release Allergies Allergy/AdvReac Type Severity Reaction Status Date / Time No Known Allergies Allergy Mild Verified 01/06/25 21:02 Vital Signs Vital Signs - 24 hr 01/06/25 13:49 01/06/25 15:44 01/06/25 16:49 Temperature 97.8 F 97.8 F Pulse Rate 94 95 101 H Respiratory Rate 16 16 16 Blood Pressure 103/63 98/57 L 139/76 Pulse Oximetry 100 98 95 Oxygen Delivery Room Air 01/06/25 16:50 01/06/25 17:31 01/06/25 21:55 Temperature Pulse Rate 99 100 Respiratory Rate 18 18 Blood Pressure 139/76 102/61 118/78 Pulse Oximetry 98 92 Oxygen Delivery Room Air Exam Const: General: cooperative, comfortable, no acute distress, well developed, awake, average body habitus and well nourished Nutritional Appearance: average body habitus and well nourished Orientation/consciousness: oriented to person, oriented to place, oriented to time and patient oriented x3 Limitations: no limitations HENMT: Head: normal to inspection, No palpable skull fracture present, normocephalic, atraumatic and abrasion Ears: hearing grossly normal bilaterally and external ears normal Eyes: General: appearance normal, both eyes and all related structures Alignment and Position: alignment normal Periorbital: periorbital findings normal Neck: Neck: normal visual inspection and full ROM Chest: Chest palpation & inspection: normal inspection of the chest Resp: Effort & Inspection: normal respiratory effort Auscultation: clear to auscultation bilaterally Cardio: Palpation: normal PMI Rate: regular rate Rhythm: regular rhythm Heart sounds: S1 normal heart sound present and S2 normal heart sound present Peripheral pulses: Peripheral pulses 2+ throughout Skin: General skin exam: normal color Wounds: no wounds Hair: normal Nails: normal Other: Multiple ulcerated areas the lower extremities. Area around ulceration is erythematous without any drainage. Lower extremities are warm to touch and tender. Neuro: General: oriented to person, oriented to place, oriented to time and patient oriented x3 Extrem: General: normal to inspection Right upper extremity: normal to inspection and shoulder/upper arm Left upper extremity: normal to inspection and shoulder/upper arm Right lower extremity: normal to inspection Left lower extremity: normal to inspection Psych: Appearance: grossly normal Mental Status: mental status grossly normal Speech and movement: Normal speech and movement present Affect: normal affect Attitude: cooperative Thought process: Normal thought process present Thought content: Yes Normal thought content present Insight: Good insight present (Psych) Judgement: Good judgement present (Psych) H&P: Results Labs Labs: Short CBC 01/06/25 Range/Units 17:01 WBC 10.4 H (4.5-10.0) K/mm3 Hgb 14.2 (12.0-15.0) g/dL Hct 45.0 (37.0-47.0) % Plt Count 376 H (150-375) k/mm3 BMP 01/06/25 17:01 Sodium 131 L Potassium 5.1 H Chloride 88 L Carbon Dioxide 26 BUN 62 H D Creatinine 2.47 H Glucose 176 H Calcium 10.4 H Liver Function 01/06/25 Range/Units 17:01 Total Bilirubin 0.9 (0.2-1.3) mg/dL AST 21 (14-36) U/L ALT 21 (6-35) U/L Alkaline Phosphatase 146 H (38-126) U/L Albumin 4.6 (3.5-5.1) g/dL ECG Interpretation: est Date: 2025-01-06 17:26:23 Measurements Intervals [place] Rate: 98 P: 33 SC: 171 QRS: -47 QRSD: 99 T: 104 QT: 330 QTc: 422 Interpretive Statements SINUS RHYTHM VOLTAGE CRITERIA FOR LVH, CONSIDER NORMAL VARIANT INFERIOR MYOCARDIAL INFARCTION , PROBABLY OLD ANTEROLATERAL MYOCARDIAL INFARCTION , OF INDETERMINATE Imaging CT scan - abdomen: Radiologist's impression: ITS Impressions Abdomen/Pelvis CT 01/06/25 17:52 IMPRESSION: 1. Small bowel obstruction with transition point in the pelvis. 2. Ill-defined stranding within the mesentery which is nonspecific however carcinomatosis is not excluded. 3. Pancreatic lesions detailed above, contrast-enhanced MRI is recommended Abdomen X-Ray 01/06/25 20:13 IMPRESSION: 1. Tip of the nasogastric tube is noted within the body of the stomach. Assessment and Plan Assessment and plan (1) SBO (small bowel obstruction): Code(s): K56.609 - Unspecified intestinal obstruction, unspecified as to partial versus complete obstruction Status: Acute Assessment and Plan: -surgical consultation was placed. Input and recommendations would greatly be appreciated. -conservative treatment with NG tube, bowel rest, IV fluids. The patient has an NG tube that is draining a dark green brown substance. The patient has already drained out a 1000 mL a ready. The patient stated that she is getting some relief with they low intermittent suction. The abdomen is now soft and nontender. -she has had no prior history of small-bowel obstruction. -continue with IV fluids. -continue with and p.o. status. -continue with Zofran p.r.n.. However her QTC is 422. (2) Pancreatic cyst: Code(s): K86.2 - Cyst of pancreas Status: Chronic Assessment and Plan: -MRI has been ordered of the abdomen with and without contrast today. Abdomen/Pelvis CT 01/06/25 17:52 IMPRESSION: 1. Small bowel obstruction with transition point in the pelvis. 2. Ill-defined stranding within the mesentery which is nonspecific however carcinomatosis is not excluded. 3. Pancreatic lesions detailed above, contrast-enhanced MRI is recommended (3) Diabetes: Code(s): E11.9 - Type 2 diabetes mellitus without complications Status: Acute Assessment and Plan: -Accu-Cheks every 6 hours with sliding scale insulin. -check A1c if no recent hemoglobin A1c. -hypoglycemic protocol initiated. -metformin and glimepiride are on hold at this time. (4) Other and unspecified hyperlipidemia: Code(s): E78.5 - Hyperlipidemia, unspecified Status: Acute Assessment and Plan: -the patient is NPO. Atorvastatin is on hold (5) Hyperkalemia: Code(s): E87.5 - Hyperkalemia Status: Acute Assessment and Plan: -her potassium is mildly elevated. Potassium is 5.1. -daily BMPs -the patient had been on potassium supplement with her Lasix at home. Both of those are on hold at this time. (6) Chronic cutaneous venous stasis ulcer: Code(s): I83.009 - Varicose veins of unspecified lower extremity with ulcer of unspecified site; L97.909 - Non-pressure chronic ulcer of unspecified part of unspecified lower leg with unspecified severity Status: Acute Assessment and Plan: -the patient has multiple ulcerated areas to her lower extremities. Area around the ulcerations are slightly red and tender. There are also warm to touch. The patient stated that she has gone to wound care clinic in the past and it has not helped her at all. She declined wound care clinic at this time. -blood cultures are pending -patient was started on Rocephin. -white count is 10.4. (7) Acute on chronic renal failure: Code(s): N17.9 - Acute kidney failure, unspecified; N18.9 - Chronic kidney disease, unspecified Status: Acute Assessment and Plan: -current BUN is 62 with the last known value of 30 a couple weeks ago. -creatinine 2.47 with a baseline of somewhere between 1.3 and 1.5. -GFR is 19 which is typically around 34. -continue with IV fluids. -if no improvement may consider Nephrology and renal ultrasound. -most likely secondary to dehydration. She was also on diuretics as well. -avoid nephrotoxic medication. (8) Hypertension: Qualifiers: Hypertension type: essential hypertension Qualified Code(s): I10 - Essential (primary) hypertension Code(s): I10 - Essential (primary) hypertension Status: Chronic Assessment and Plan: -irbesartan is on hold at this time. -Lasix on hold -current blood pressure is 101/49. Quality VTE Prophylaxis VTE prophylaxis: mechanical ordered
[2025-01-07 04:27] VITALS: BP 101/49; PULSE 89; RESP 16; TEMP 36.2; O2SAT 95
[2025-01-07 04:28] VITALS: BP 101/49; PULSE 89; RESP 16; TEMP 36.2; O2SAT 95
[2025-01-07] MEDS: cefTRIAXone 1 GM in SODIUM CHLORIDE 0.9% IV 50 ML 100 ML IVPB (05:05)
[2025-01-07] MEDS: SODIUM CHLORIDE 0.9% IV 1,000 ML 150 ML IV CONT ×3 (05:05→20:33)
--- NOTE | 2025-01-07 05:17 | WNDPHOTO ---
PHOTO ONLY - See Nursing Notes and/ or assessments for documentation.
--- NOTE | 2025-01-07 05:18 | WNDPHOTO ---
PHOTO ONLY - See Nursing Notes and/ or assessments for documentation.
[2025-01-07 05:55] LABS: Hematocrit 39.0 % (37.0-47.0); Hemoglobin 12.2 g/dL (12.0-15.0); Mean Corpuscular HGB Conc 31.3 g/dl (32-36); Mean Corpuscular Hemoglobin 27.0 pg (26-34); Mean Corpuscular Volume 86.3 fl (80-100); Platelet Count Result 287 k/mm3 (150-375); Red Blood Count 4.52 M/mm3 (4.2-5.4); White Blood Count 8.0 K/mm3 (4.5-10.0)
[2025-01-07 06:04] LABS: Hemoglobin A1C 6.1 % (<5.7)
[2025-01-07 06:13] LABS: Anion Gap 10 mmol/L (4-12); Blood Urea Nitrogen 56 mg/dL (7-17); Calcium 8.8 mg/dL (8.4-10.2); Carbon Dioxide 24 mmol/L (22-30); Chloride 100 mmol/L (98-107); Estimated CRCL calculation 28 ml/min; Estimated Glomerular Filt Rate 27; Glucose 100 mg/dL (65-110); Potassium 4.4 mmol/L (3.4-5.0); Sodium 134 mmol/L (137-145)
[2025-01-07 07:12] LABS: Total Cells Counted 100
[2025-01-07 07:13] LABS: Band Neutrophils Percent 25 % (0-6); Eosinophils Absolute Manual 0.24 K/mm3 (0.02-0.50); Eosinophils Percent Manual 3 % (0-4); Lymphocytes Absolute Manual 0.40 K/mm3 (1.1-4.5); Lymphocytes Percent Manual 5 % (18-44); Monocytes Absolute Manual 1.36 K/mm3 (0.1-0.90); Monocytes Percent Manual 17 % (3-9); Neutrophils Absolute Manual 6.00 K/mm3 (1.3-6.7); Neutrophils Percent Manual 50 % (46-73); Schistocytes None Seen
--- NOTE | 2025-01-07 07:32 | PM.IMPN ---
Progress Note: A&P Assessment and Plan (1) SBO (small bowel obstruction): Code(s): K56.609 - Unspecified intestinal obstruction, unspecified as to partial versus complete obstruction Status: Acute Assessment and Plan: -surgical consultation was placed. --Plan: continue conservative measures with NG tube decompression, bowel rest, and IV fluids. Continue to monitor with serial abdominal exams and imaging. Will likely further evaluate with a water-soluble small-bowel follow-through later today or tomorrow. -the patient has an NG tube in that is draining a bilious green substance. -she has had no prior history of small-bowel obstruction. (2) Pancreatic cyst: Code(s): K86.2 - Cyst of pancreas Status: Chronic Assessment and Plan: CT: Arising from the pancreatic body there is a cystic lesion measuring 1.4 x 1.5 cm. Additional pancreatic cystic lesions are noted with atrophy of the remaining pancreas. Ill-defined stranding within the mesentery which is nonspecific however carcinomatosis is not excluded. -MRI has been ordered of the abdomen with and without contrast today. -Surg consult plan: Continue with ABD MRI (3) Diabetes: Code(s): E11.9 - Type 2 diabetes mellitus without complications Status: Acute Assessment and Plan: -Accu-Cheks every 6 hours with sliding scale insulin. -Hemoglobin A1c 6.1 -hypoglycemic protocol initiated. -metformin and glimepiride are on hold at this time. (4) Hyperkalemia: Code(s): E87.5 - Hyperkalemia Status: Acute Assessment and Plan: -her potassium is mildly elevated. Potassium is 5.1. -daily BMPs -the patient had been on potassium supplement with her Lasix at home. Both of those are on hold at this time. -Resolved, WDL since initial lab, continue to monitor with daily labs (5) Chronic cutaneous venous stasis ulcer: Code(s): I83.009 - Varicose veins of unspecified lower extremity with ulcer of unspecified site; L97.909 - Non-pressure chronic ulcer of unspecified part of unspecified lower leg with unspecified severity Status: Acute Assessment and Plan: -the patient has multiple ulcerated areas to her lower extremities. Area around the ulcerations are slightly red and tender. There are also warm to touch. The patient stated that she has gone to wound care clinic in the past and it has not helped her at all. She declined wound care clinic at this time. -blood cultures are pending -patient was started on Rocephin. -repeat white count is 8.0. -PMS intact bilaterally -Pending BO results (6) Acute on chronic renal failure: Code(s): N17.9 - Acute kidney failure, unspecified; N18.9 - Chronic kidney disease, unspecified Status: Acute Assessment and Plan: -current BUN is 62 with the last known value of 30 a couple weeks ago. -creatinine decreased to 1.80. Baseline of somewhere between 1.3 and 1.5. -GFR irepeat is 27 which is typically around 34. -continue with IV fluids. -if no improvement may consider Nephrology and renal ultrasound. -most likely secondary to dehydration. She was also on diuretics as well. -avoid nephrotoxic medication. (7) Hypertension: Qualifiers: Hypertension type: essential hypertension Qualified Code(s): I10 - Essential (primary) hypertension Code(s): I10 - Essential (primary) hypertension Status: Chronic Assessment and Plan: -irbesartan is on hold at this time. -Lasix on hold -current blood pressure is 101/49. Plan BO's pending, abd MRI, BS, surgical consult Subjective Date/time seen: 01/07/25 1135 Interval history: Patient lying comfortably in bed upon my arrival. Patient endorses pain with palpation to abdomen. Denies N/V/D. Patient denies pain in her legs. Reporting slight increase in pain in her belly with NG tube placed, thinks from prior palpation. Agrees with plan for abdomen MRI. Review of Systems Constitutional: Constitutional: Reports as per HPI and Reports no additional constitutional complaints Eyes: Eyes: Reports as per HPI and Reports no additional eye complaints ENT: Reports system reviewed and no additional complaints, except as documented and Reports Normal hearing present Cardiovascular: Cardiovascular: Reports no additional cardiovascular complaints Respiratory: Respiratory: Reports as per HPI and Reports no additional respiratory complaints Gastrointestinal: Gastrointestinal: Reports as per HPI and Reports no additional gastrointestinal complaints Genitourinary: Genitourinary: Reports no additional female genitourinary complaints Musculoskeletal: Musculoskeletal: Reports no additional musculoskeletal complaints Integumentary/Breasts: Skin/Breast: Reports system reviewed and no additional complaints, except as docu Neurologic: Reports system reviewed and no additional complaints, except as documented and Reports Normal hearing present Psychiatric: Psychiatric: Reports no additional psychiatric complaints and Reports as per HPI Hematologic/Lymphatic: Hematologic/Lymphatic: Reports no additional hematologic/lymphatic complaints Allergic/Immunologic: Allergic/Immunologic: Reports no additional allergic/immunologic complaints Exam Const: General: cooperative, comfortable, no acute distress, well developed, awake, average body habitus and well nourished Nutritional Appearance: average body habitus and well nourished Orientation/consciousness: oriented to person, oriented to place, oriented to time and patient oriented x3 Limitations: no limitations HENMT: Head: normal to inspection, No palpable skull fracture present, normocephalic, atraumatic and abrasion Ears: hearing grossly normal bilaterally and external ears normal Eyes: General: appearance normal, both eyes and all related structures Alignment and Position: alignment normal Periorbital: periorbital findings normal Neck: Neck: normal visual inspection and full ROM Chest: Chest palpation & inspection: normal inspection of the chest Resp: Effort & Inspection: normal respiratory effort Auscultation: clear to auscultation bilaterally Cardio: Palpation: normal PMI Rate: regular rate Rhythm: regular rhythm Heart sounds: Murmur heart sound present Peripheral pulses: Peripheral pulses 2+ throughout GI: Inspection: distended GI Palp: Yes abdominal tenderness (diffuse) and No Rebound tenderness present Auscultation: abnormal bowel sounds (hypo RLQ, LUQ, LLQ) Skin: General skin exam: normal color Wounds: no wounds Hair: normal Nails: normal Other: Multiple ulcerated areas to the lower extremities. Area around ulceration is erythematous without any drainage. Lower extremities are warm to touch and tender. Neuro: General: oriented to person, oriented to place, oriented to time and patient oriented x3 Cranial nerves: Yes Normal hearing present Extrem: General: normal exam except as noted Other: PMS BLE intact Psych: Appearance: grossly normal Mental Status: mental status grossly normal Speech and movement: Normal speech and movement present Affect: normal affect Attitude: cooperative Thought process: Normal thought process present Insight: Good insight present (Psych) Judgement: Good judgement present (Psych) Objective Data Vital Signs Vital Signs: Vital Signs - 24 hr 01/06/25 13:49 01/06/25 15:44 01/06/25 16:49 Temperature 97.8 F 97.8 F Pulse Rate 94 95 101 H Respiratory Rate 16 16 16 Blood Pressure 103/63 98/57 L 139/76 Pulse Oximetry 100 98 95 Oxygen Delivery Room Air 01/06/25 16:50 01/06/25 17:31 01/06/25 21:55 Temperature Pulse Rate 99 100 Respiratory Rate 18 18 Blood Pressure 139/76 102/61 118/78 Pulse Oximetry 98 92 Oxygen Delivery Room Air 01/07/25 04:27 01/07/25 04:28 Temperature 97.1 F L 97.1 F L Pulse Rate 89 89 Respiratory Rate 16 16 Blood Pressure 101/49 L 101/49 L Pulse Oximetry 95 95 Oxygen Delivery Intake/Output Intake/Output: Intake & Output 01/04/25 01/05/25 01/06/25 01/07/25 23:59 23:59 23:59 23:59 Intake Total 1999 1000 Output Total 450 Balance 1999 550 Meds/Results Medications: Active Medications Generic Name Dose Route Start Last Admin Trade Name Freq PRN Reason Stop Dose Admin Dextrose 12.5 gm 01/07/25 04:31 Dextrose 50% 25 Gm/50 Ml Syringe IV PUSH PRN PRN Hypoglycemia Protocol Glucagon 1 mg 01/07/25 04:31 Glucagon For Inj 1 Mg Vial IM PRN PRN Hypoglycemia Protocol Glucose 15 gm 01/07/25 04:31 Glucose Oral Gel 15 Gm Of Glucse In 37.5 Gm Tube PO PRN PRN Hypoglycemia Protocol Sodium Chloride 1,000 mls @ 150 mls/hr 01/06/25 19:00 01/07/25 05:05 Normal Saline Iv IV CONT 150 mls/hr .Q6H40M ANTIONETTE Administration Dextrose 1,000 mls @ 100 mls/hr 01/07/25 04:31 Dextrose 5% 1,000 Ml IVPB PRN PRN Hypoglycemia Protocol Ceftriaxone Sodium 1 gm/ 50 mls @ 100 mls/hr 01/07/25 05:00 01/07/25 05:05 Sodium Chloride IVPB 100 mls/hr Q24H ANTIONETTE Administration Insulin Aspart 2 - 5 units 01/07/25 06:00 01/07/25 05:29 Insulin Aspart (*Bkc) 100 Units/Ml SUB-Q Not Given Q6HR ANTIONETTE Protocol Ondansetron HCl 4 mg 01/06/25 18:56 Ondansetron Inj 4 Mg/2 Ml Vial IV PUSH Q4H PRN Nausea Phenol 1 spray 01/07/25 00:17 Phenol/Sod Pheno Furlong Ortiz (*Bkc) MUCOUS MEM PRN PRN Sore Throat Radiology Results: ITS Impressions Abdomen/Pelvis CT 01/06/25 17:52 IMPRESSION: 1. Small bowel obstruction with transition point in the pelvis. 2. Ill-defined stranding within the mesentery which is nonspecific however carcinomatosis is not excluded. 3. Pancreatic lesions detailed above, contrast-enhanced MRI is recommended Abdomen X-Ray 01/06/25 20:13 IMPRESSION: 1. Tip of the nasogastric tube is noted within the body of the stomach. Labs Labs: Laboratory Results - last 24 hr 01/06/25 01/07/25 01/07/25 17:01 05:21 05:39 WBC 10.4 H 8.0 RBC 5.29 4.52 Hgb 14.2 12.2 Hct 45.0 39.0 MCV 85.1 86.3 MCH 26.8 27.0 MCHC 31.6 L 31.3 L RDW 14.7 H 14.7 H Plt Count 376 H 287 MPV 9.5 9.7 Immature Gran % (Auto) Not Reportable Not Reportable Neut % (Auto) Not Reportable Not Reportable Lymph % (Auto) Not Reportable Not Reportable [place] % (Auto) Not Reportable Not Reportable Eos % (Auto) Not Reportable Not Reportable Baso % (Auto) Not Reportable Not Reportable Lymph # (Auto) Not Reportable Not Reportable [place] # (Auto) Not Reportable Not Reportable Eos # (Auto) Not Reportable Not Reportable Baso # (Auto) Not Reportable Not Reportable Abs Immat Gran (auto) Not Reportable Not Reportable Absolute Neuts (auto) Not Reportable Not Reportable Absolute Nucleated RBC Not Reportable Not Reportable Total Counted 100 100 Neutrophils % (Manual) 15 L 50 Band Neutrophils % 53 H 25 H Lymphocytes % (Manual) 15.0 L 5 L Monocytes % (Manual) 15 H 17 H Eosinophils % (Manual) 1 3 Metamyelocytes % 1 Nucleated RBC % Not Reportable Not Reportable Abs Neuts (Manual) 7.07 H 6.00 Abs Lymphs (Manual) 1.56 0.40 L Abs Monocytes (Manual) 1.56 H 1.36 H Absolute Eos (Manual) 0.10 0.24 Platelet Estimate Slightly increased Adequate Hypochromasia 1+ Anisocytosis 1+ Schistocytes None seen None seen PT 15.9 H INR 1.3 APTT 31.2 Sodium 131 L 134 L Potassium 5.1 H 4.4 Chloride 88 L 100 Carbon Dioxide 26 24 Anion Gap 17 H 10 BUN 62 H D 56 H Creatinine 2.47 H 1.80 H Estim Creat Clear Calc 21 28 Estimated GFR 19 L 27 L Glucose 176 H 100 POC Capillary Glucose 109 H Hemoglobin A1c 6.1 H Lactic Acid 1.8 Calcium 10.4 H 8.8 Total Bilirubin 0.9 AST 21 ALT 21 Alkaline Phosphatase 146 H Total Protein 8.6 H Albumin 4.6 Blood Type A Negative Antibody Screen Negative Quality VTE Prophylaxis VTE prophylaxis: mechanical ordered
--- NOTE | 2025-01-07 09:52 | PM.CNGS ---
Assessment and Plan Assessment and plan (1) SBO (small bowel obstruction): Code(s): K56.609 - Unspecified intestinal obstruction, unspecified as to partial versus complete obstruction Status: Acute Assessment and Plan: CT showed evidence of a SBO with transition point in the pelvis. She has been dealing with symptoms on and off for 3 weeks. She has no signs of bowel function and has not had a BM in 6 days. She is clinically improving following NG tube decompression. She has had a lot of output from the NG tube since placed yesterday. Her abdominal exam is benign. Will continue conservative measures with NG tube decompression, bowel rest, and IV fluids. Continue to monitor with serial abdominal exams and imaging. Will likely further evaluate with a water-soluble small-bowel follow-through later today or tomorrow. (2) Pancreatic cyst: Code(s): K86.2 - Cyst of pancreas Status: Chronic Assessment and Plan: Incidentally noted on CT. MRI ordered today. (3) Acute on chronic renal failure: Code(s): N17.9 - Acute kidney failure, unspecified; N18.9 - Chronic kidney disease, unspecified Status: Acute Assessment and Plan: Likely related to volume depletion/dehydration. Continue IV fluids, management per Hospitalist, avoid nephrotoxic medications, trend labs (4) Abnormal CT of the abdomen: Code(s): R93.5 - Abnormal findings on diagnostic imaging of other abdominal regions, including retroperitoneum Status: Acute Assessment and Plan: CT showed ill-defined stranding within the mesentery which may be nonspecific verses findings of possible carcinomatosis. She has no known cancer and is followed by Oncology for a history of anal cancer. There were also pancreatic lesions and she is getting an MRI today to further evaluate. (5) DM2 (diabetes mellitus, type 2): Code(s): E11.9 - Type 2 diabetes mellitus without complications Status: Acute (6) Cholelithiases: Code(s): K80.20 - Calculus of gallbladder without cholecystitis without obstruction Status: Chronic Assessment and Plan: Noted on imaging. No signs of cholecystitis. Discussed with patient. Continue to monitor. (7) History of anal cancer: Code(s): Z85.048 - Personal history of other malignant neoplasm of rectum, rectosigmoid junction, and anus Status: Acute Assessment and Plan: Treated with chemotherapy and radiation therapy in 2020, follows for surveillance with Dr. Mon. (8) Chronic cutaneous venous stasis ulcer: Code(s): I83.009 - Varicose veins of unspecified lower extremity with ulcer of unspecified site; L97.909 - Non-pressure chronic ulcer of unspecified part of unspecified lower leg with unspecified severity Status: Acute Assessment and Plan: Multiple small superficial wounds on her lower leg circumferentially. Currently open to air and they are dry with multiple scabs. They appear very chronic and reportedly look much better than they have recently. Hospitalist ordered ABIs. No indication for any surgical debridement clinically. (9) Umbilical hernia: Code(s): K42.9 - Umbilical hernia without obstruction or gangrene Status: Acute Assessment and Plan: Umbilical bulge noted on exam. CT report showed umbilical hernia containing fluid. This is unable to be reduced and appears to be in similar location to her previous hernia, which was repaired with mesh laparoscopically in 2020. She has not noticed a bulge or any pain/issues with this area prior to her symptoms. This is not her acute issue and can be monitored. Plan I have discussed the patient's case, recommendations, and treatment with Dr. Cao. History of Present Illness Consult details Consult date: 01/07/25 Reason for consult: other (Small-bowel obstruction) Requesting physician: Shay Almeida DO Narrative: This is a 74-year-old female with a history of anal cancer s/p chemotherapy and radiation treatment in 2020, HTN, type 2 DM, chronic venous stasis, and other medical problems, who we have been asked to see in surgical consultation for a small-bowel obstruction. She reports first noticing generalized cramping abdominal pain about 2-3 weeks ago. The pain would come in waves and seem to be aggravated with eating or drinking. She initially did not have any vomiting, but felt constipated. She did not take any [id number] laxatives her medications for her symptoms. She did back off her diet to mainly only clear liquids and her symptoms improved. Her abdominal pain actually went away for a few days. Her symptoms returned last week and she began vomiting a few days ago. She has not had a bowel movement in 6 days and has not been passing any flatus. She reports over the past few days, she has not been able to keep down any solid food or liquids. Due to her persistent symptoms, she came into the ED for evaluation. Labs showed a white blood cell count 47789, sodium 131, potassium 5.1, BUN 62, creatinine 2.47, lactic acid 1.8. CT scan of the abdomen and pelvis showed small-bowel obstruction with transition point in the pelvis, ill-defined stranding within the mesentery which is nonspecific however carcinomatosis is not excluded, and pancreatic lesions with recommendations of a contrast enhanced MRI. She had an NG tube placed and was admitted to the hospitalist service. She also was started on IV Rocephin for bilateral lower extremity wounds. ABIs have been ordered. She has a history of chronic venous stasis ulcers and was previously seen in the [facility], but refused wound care consultation at this time. She reports her wounds and legs actually look much better and have been healing. She has an MRI ordered for the pancreatic lesions. She denies history of a small-bowel obstruction. Her only previous abdominal surgery was laparoscopic repair large ventral hernia with mesh by Dr. Hoyt in 2020. She denies noticing a bulge, but there is an umbilical bulge noted on her exam today and her CT report mentions a fluid-filled umbilical hernia. She has had over 1.5 mL out of her NG since admission. She is still not passing any flatus. Her abdominal pain and distension have reportedly improved. She is not having any abdominal pain at the time of my exam. Review of Systems Review of Systems: All systems reviewed & are unremarkable except as noted in HPI and below PMFSH Past Medical History Medical History Acute on chronic renal failure Chronic cutaneous venous stasis ulcer DM2 (diabetes mellitus, type 2) Chronic venous hypertension with ulcer Cardiomyopathy no echo on the chart Hypertension Hyperlipidemia Screening for colon cancer Postmenopausal Screening for breast cancer Benign essential hypertension Surgical History Surgical History H/O ventral hernia repair 09/23/20 Laparoscopic repair of large ventral hernia with 20 x 25 cm Symbotex mesh Hx of colonoscopy unable to complete due to transverse colon in a hernia History of right knee joint replacement Family History Family History Mother Family history of elevated blood lipids Father Family history of diabetes mellitus in first degree relative Family history of coronary artery disease Cerebrovascular accident Family history of Alzheimer's disease Sibling Hodgkin disease Other Diabetes mellitus Family history of hypercholesterolemia Social History Social History Social History: The patient stated that she is and has 3 children. 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 Her is the [employer] transactions attorney for healthcare. Code status: Full code Smoking packs per day: 0.5 Smoking cigarettes per day: 10.0 Years smoked: 3 Smoking pack-years: 1.50 Smoking status: Never smoker Tobacco type: cigarettes Second hand tobacco smoke exposure: Yes Smoking end date: 02/20/71 Additional smoking assessment comments: smoked only socially Alcohol intake: never Alcohol use details: 3 times per year Substance use: never Substance use type: does not use Lack of Transportation: No Lack of Food: Never True Current Housing: I Have Housing Concerned About Future Housing: No Difficulty Paying Gas/Electric Bills: No Difficulty Paying for Meds: No Currently Unemployed: No Education: High School Diploma/GED Difficulty w/ Childcare or Family Care: No Living arrangements: with family Occupation/Education: retired Gender identity (if verbalized by the patient): Female Sexual Orientation (if Verbalized by the Patient): Straight or Heterosexual Spiritual care concerns: No Meds Home Medications and Allergies Home Medications ?Medication ?Instructions ?Recorded ?Confirmed ?Type aspirin 81 mg tablet,delayed 81 mg PO DAILY 12/01/22 01/06/25 History release (Adult Aspirin Regimen) metoprolol succinate 25 mg See Rx Instructions .Route 07/25/24 01/06/25 Rx tablet,extended release 24 hr .COMPLEX #45 tabs atorvastatin 10 mg tablet See Rx Instructions .Route 10/23/24 01/06/25 Rx .COMPLEX #90 tabs empagliflozin 25 mg tablet 25 mg PO QAM #90 tabs 10/23/24 01/06/25 Rx (Jardiance) furosemide 40 mg tablet See Rx Instructions .Route 10/23/24 01/06/25 Rx .COMPLEX #90 tabs glimepiride 2 mg tablet See Rx Instructions .Route 10/23/24 01/06/25 Rx .COMPLEX #135 tabs irbesartan 300 mg tablet See Rx Instructions .Route 10/23/24 01/06/25 Rx .COMPLEX #90 tabs metformin 1,000 mg tablet See Rx Instructions .Route 10/23/24 01/06/25 Rx .COMPLEX #180 tabs potassium chloride 10 mEq See Rx Instructions .Route .COMPLEX 01/06/25 01/06/25 History capsule,extended release Allergies Allergy/AdvReac Type Severity Reaction Status Date / Time No Known Allergies Allergy Mild Verified 01/06/25 21:02 Vital Signs Vital Signs - 24 hr 01/06/25 13:49 01/06/25 15:44 01/06/25 16:49 Temperature 97.8 F 97.8 F Pulse Rate 94 95 101 H Respiratory Rate 16 16 16 Blood Pressure 103/63 98/57 L 139/76 Pulse Oximetry 100 98 95 Oxygen Delivery Room Air 01/06/25 16:50 01/06/25 17:31 01/06/25 21:55 Temperature Pulse Rate 99 100 Respiratory Rate 18 18 Blood Pressure 139/76 102/61 118/78 Pulse Oximetry 98 92 Oxygen Delivery Room Air 01/07/25 04:27 01/07/25 04:28 Temperature 97.1 F L 97.1 F L Pulse Rate 89 89 Respiratory Rate 16 16 Blood Pressure 101/49 L 101/49 L Pulse Oximetry 95 95 Oxygen Delivery Exam Const: General: comfortable and no acute distress Nutritional Appearance: obese Orientation/consciousness: patient oriented x3 HENMT: Head: normocephalic and atraumatic Ears: hearing grossly normal bilaterally Mouth: Yes moist mucous membranes Eyes: General: appearance normal, both eyes and all related structures Pupils: Equal, round and reactive pupils present Neck: Neck: normal visual inspection and full ROM Resp: Effort & Inspection: no respiratory distress Auscultation: clear to auscultation bilaterally Cardio: Rate: regular rate Rhythm: regular rhythm Heart sounds: Murmur heart sound present GI: Inspection: distended and scar (small scars noted across abd) GI Palp: Yes Soft to palpation, Yes Tenderness to palpation present (GI) (very mild diffuse tenderness), No Guarding due to palpation present (GI), Yes Hernia present (5-6 cm umbilical bulge, nontender, not reducible, no overlying skin changes) umbilical and No Rebound tenderness present Auscultation: absent bowel sounds Rectal Exam: deferred Skin: General skin exam: normal color Neuro: General: moves all extremities and no focal motor deficits Speech: normal speech Motor exam (neuro): 5/5 motor strength present throughout Extrem: General: capillary refill normal and no edema Other: Bilateral lower legs with small scabs and a few small superficial ulcers that are dry, they appear very chronic and there is no drainage, no swelling, no warmth or erythema. Bilateral feet are warm with no wounds, no swelling, and no erythema. Unable to palpable distal pulses, ABIs ordered today. Psych: Mental Status: mental status grossly normal Attitude: cooperative Insight: Good insight present (Psych) Judgement: Good judgement present (Psych) Results Labs 01/07/25 05:39 01/07/25 05:39 Labs: Abnormal lab results 01/06/25 01/07/25 01/07/25 Range/Units 17:01 05:21 05:39 WBC 10.4 H (4.5-10.0) K/mm3 MCHC 31.6 L 31.3 L (32-36) g/dl RDW 14.7 H 14.7 H (11.5-14.5) % Plt Count 376 H (150-375) k/mm3 Neutrophils % (Manual) 15 L (46-73) % Band Neutrophils % 53 H 25 H (0-6) % Lymphocytes % (Manual) 15.0 L 5 L (18-44) % Monocytes % (Manual) 15 H 17 H (3-9) % Abs Neuts (Manual) 7.07 H (1.3-6.7) K/mm3 Abs Lymphs (Manual) 0.40 L (1.1-4.5) K/mm3 Abs Monocytes (Manual) 1.56 H 1.36 H (0.1-0.90) K/mm3 PT 15.9 H (11.1-14.7) Seconds Sodium 131 L 134 L (137-145) mmol/L Potassium 5.1 H (3.4-5.0) mmol/L Chloride 88 L (98-107) mmol/L Anion Gap 17 H (4-12) mmol/L BUN 62 H D 56 H (7-17) mg/dL Creatinine 2.47 H 1.80 H (0.7-1.0) mg/dL Estimated GFR 19 L 27 L (59 - ) Glucose 176 H (65-110) mg/dL POC Capillary Glucose 109 H (65-105) mg/dl Hemoglobin A1c 6.1 H (<5.7) % Calcium 10.4 H (8.4-10.2) mg/dL Alkaline Phosphatase 146 H (38-126) U/L Total Protein 8.6 H (6.3-8.2) g/dL Diabetes panel 01/06/25 01/07/25 Range/Units 17:01 05:39 Sodium 131 L 134 L (137-145) mmol/L Potassium 5.1 H 4.4 (3.4-5.0) mmol/L Chloride 88 L 100 (98-107) mmol/L Carbon Dioxide 26 24 (22-30) mmol/L BUN 62 H D 56 H (7-17) mg/dL Creatinine 2.47 H 1.80 H (0.7-1.0) mg/dL Glucose 176 H 100 (65-110) mg/dL Hemoglobin A1c 6.1 H (<5.7) % Calcium 10.4 H 8.8 (8.4-10.2) mg/dL AST 21 (14-36) U/L ALT 21 (6-35) U/L Alkaline Phosphatase 146 H (38-126) U/L Total Protein 8.6 H (6.3-8.2) g/dL Albumin 4.6 (3.5-5.1) g/dL Calcium panel 01/06/25 01/07/25 Range/Units 17:01 05:39 Calcium 10.4 H 8.8 (8.4-10.2) mg/dL Albumin 4.6 (3.5-5.1) g/dL Pituitary panel 01/06/25 01/07/25 Range/Units 17:01 05:39 Sodium 131 L 134 L (137-145) mmol/L Potassium 5.1 H 4.4 (3.4-5.0) mmol/L Chloride 88 L 100 (98-107) mmol/L Carbon Dioxide 26 24 (22-30) mmol/L BUN 62 H D 56 H (7-17) mg/dL Creatinine 2.47 H 1.80 H (0.7-1.0) mg/dL Glucose 176 H 100 (65-110) mg/dL Calcium 10.4 H 8.8 (8.4-10.2) mg/dL Adrenal panel 01/06/25 01/07/25 Range/Units 17:01 05:39 Sodium 131 L 134 L (137-145) mmol/L Potassium 5.1 H 4.4 (3.4-5.0) mmol/L Chloride 88 L 100 (98-107) mmol/L Carbon Dioxide 26 24 (22-30) mmol/L BUN 62 H D 56 H (7-17) mg/dL Creatinine 2.47 H 1.80 H (0.7-1.0) mg/dL Glucose 176 H 100 (65-110) mg/dL Calcium 10.4 H 8.8 (8.4-10.2) mg/dL Total Bilirubin 0.9 (0.2-1.3) mg/dL AST 21 (14-36) U/L ALT 21 (6-35) U/L Alkaline Phosphatase 146 H (38-126) U/L Total Protein 8.6 H (6.3-8.2) g/dL Albumin 4.6 (3.5-5.1) g/dL All other labs normal. Imaging Additional studies: ITS Impressions Abdomen/Pelvis CT 01/06/25 17:52 IMPRESSION: 1. Small bowel obstruction with transition point in the pelvis. 2. Ill-defined stranding within the mesentery which is nonspecific however carcinomatosis is not excluded. 3. Pancreatic lesions detailed above, contrast-enhanced MRI is recommended Abdomen X-Ray 01/06/25 20:13 IMPRESSION: 1. Tip of the nasogastric tube is noted within the body of the stomach.
[2025-01-07] MEDS: BENZOCAINE/MENTHOL (*BKC) 18 EA LOZENGE 1 LOZENGE PO (11:38)
[2025-01-07] MEDS: PANTOPRAZOLE SODIUM IV 40 MG VIAL IV PUSH ×2 (11:41→20:33)
[2025-01-07 14:00] VITALS: BP 100/53; PULSE 92; RESP 18; TEMP 36.3; O2SAT 97
[2025-01-07 21:31] VITALS: BP 132/70; PULSE 91; RESP 18; TEMP 36.8; O2SAT 94
[2025-01-07 21:58] VITALS: O2SAT 94
[2025-01-08] MEDS: DEXTROSE 50% 25 GM/50 ML SYRINGE IV PUSH (00:32)
[2025-01-08 05:45] VITALS: BP 134/67; PULSE 87; RESP 16; TEMP 36.4; O2SAT 94
[2025-01-08] MEDS: cefTRIAXone 1 GM in SODIUM CHLORIDE 0.9% IV 50 ML 100 ML IVPB (06:28)
[2025-01-08 06:39] LABS: Hematocrit 41.7 % (37.0-47.0); Hemoglobin 12.6 g/dL (12.0-15.0); Mean Corpuscular HGB Conc 30.2 g/dl (32-36); Mean Corpuscular Hemoglobin 26.9 pg (26-34); Mean Corpuscular Volume 89.1 fl (80-100); Platelet Count Result 318 k/mm3 (150-375); Red Blood Count 4.68 M/mm3 (4.2-5.4); White Blood Count 8.0 K/mm3 (4.5-10.0)
[2025-01-08 07:06] LABS: Anion Gap 9 mmol/L (4-12); Blood Urea Nitrogen 35 mg/dL (7-17); Calcium 8.8 mg/dL (8.4-10.2); Carbon Dioxide 23 mmol/L (22-30); Chloride 106 mmol/L (98-107); Estimated CRCL calculation 41 ml/min; Estimated Glomerular Filt Rate 42; Glucose 81 mg/dL (65-110); Potassium 4.5 mmol/L (3.4-5.0); Sodium 138 mmol/L (137-145)
[2025-01-08 07:24] LABS: Neutrophils Percent Manual 54 % (46-73); Total Cells Counted 100
[2025-01-08 07:25] LABS: Band Neutrophils Percent 32 % (0-6); Basophils Absolute Manual 0.08 K/mm3 (0.0-0.1); Basophils Percent Manual 1 % (0-1); Dohle Bodies Present; Eosinophils Absolute Manual 0.08 K/mm3 (0.02-0.50); Eosinophils Percent Manual 1 % (0-4); Lymphocytes Absolute Manual 0.56 K/mm3 (1.1-4.5); Lymphocytes Percent Manual 7 % (18-44); Monocytes Absolute Manual 0.40 K/mm3 (0.1-0.90); Monocytes Percent Manual 5 % (3-9); Neutrophils Absolute Manual 6.88 K/mm3 (1.3-6.7); Schistocytes None Seen; Toxic Granulation Present
[2025-01-08] MEDS: PANTOPRAZOLE SODIUM IV 40 MG VIAL IV PUSH ×2 (09:33→21:03)
--- NOTE | 2025-01-08 09:40 | P.PNGS_ITS ---
Progress Note: A&P Assessment and Plan (1) SBO (small bowel obstruction): Code(s): K56.609 - Unspecified intestinal obstruction, unspecified as to partial versus complete obstruction Status: Acute Assessment and Plan: * KUB this morning still showed dilated small bowel c/w SBO. Starting to pass flatus, but still high NG output. * Continue NG tube decompression, bowel rest, and IV fluids * Small-bowel follow-through ordered today (2) Pancreatic cyst: Code(s): K86.2 - Cyst of pancreas Status: Chronic Assessment and Plan: * MRCP showed complex cystic lesions throughout the pancreas which could be associated with intraductal papillary mucinous neoplasm vs sequela pancreatitis, recommended follow-up MRI in 6 months (3) Acute on chronic renal failure: Code(s): N17.9 - Acute kidney failure, unspecified; N18.9 - Chronic kidney disease, unspecified Status: Acute Assessment and Plan: * Improving. Continue IV fluids, management per Hospitalist, avoid nephrotoxic medications, trend labs (4) Abnormal CT of the abdomen: Code(s): R93.5 - Abnormal findings on diagnostic imaging of other abdominal regions, including retroperitoneum Status: Acute Assessment and Plan: * CT showed ill-defined stranding within the mesentery which may be nonspecific verses findings of possible carcinomatosis, as well as pancreatic lesions as mentioned above. She has no known cancer and is followed by Oncology for a history of anal cancer. (5) DM2 (diabetes mellitus, type 2): Code(s): E11.9 - Type 2 diabetes mellitus without complications Status: Acute (6) Cholelithiases: Code(s): K80.20 - Calculus of gallbladder without cholecystitis without obstruction Status: Chronic (7) History of anal cancer: Code(s): Z85.048 - Personal history of other malignant neoplasm of rectum, rectosigmoid junction, and anus Status: Acute Assessment and Plan: * Treated with chemotherapy and radiation therapy in 2020, follows for surveillance with Dr. Mon. (8) Chronic cutaneous venous stasis ulcer: Code(s): I83.009 - Varicose veins of unspecified lower extremity with ulcer of unspecified site; L97.909 - Non-pressure chronic ulcer of unspecified part of unspecified lower leg with unspecified severity Status: Acute Assessment and Plan: * Chronic wounds with no signs of an active infection and appears stable. BO showed evidence of peripheral vascular insufficiency. Likely contributing to her chronic wounds. (9) Umbilical hernia: Code(s): K42.9 - Umbilical hernia without obstruction or gangrene Status: Acute Plan I have discussed the patient's case, recommendations, and treatment with Dr. Cao. Subjective Subjective Date/Time Seen: 01/08/25 09:40 Interval history: Patient reports still having some epigastric abdominal pain, but mostly when she gets up to go to the bathroom. Otherwise, she has been comfortable overnight. She has noticed little flatus this morning for the first time. No bowel movements. She has been belching a lot. She has had 700 cc out of her NG tube over the past 24 hours. KUB this morning still shows small bowel obstruction. Exam Const: General: comfortable and no acute distress Orientation/consciousness: patient oriented x3 GI: Inspection: distended and scar (small scars noted across abd) GI Palp: Yes Soft to palpation, Yes Tenderness to palpation present (GI) (mild tenderness in the upper abdomen), No Guarding due to palpation present (GI), Yes Hernia pre sent umbilical (5-6 cm umbilical bulge) and No Rebound tenderness present Auscultation: Hypoactive bowel sounds present (More bowel sounds today) Objective Data Vital Signs Vital Signs: Vital Signs - 24 hr 01/07/25 14:00 01/07/25 20:00 01/07/25 21:31 Temperature 97.3 F L 98.3 F Pulse Rate 92 91 Respiratory Rate 18 18 Blood Pressure 100/53 L 132/70 Pulse Oximetry 97 94 Oxygen Delivery Room Air 01/07/25 21:58 01/08/25 05:45 Temperature 97.5 F L Pulse Rate 87 Respiratory Rate 16 Blood Pressure 134/67 Pulse Oximetry 94 94 Oxygen Delivery Room Air Intake/Output Intake/Output: Intake & Output 01/05/25 01/06/25 01/07/25 01/08/25 23:59 23:59 23:59 23:59 Intake Total 1999 3040 50 Output Total 450 Balance 1999 2590 50 Meds/Results Medications: Active Medications Generic Name Dose Route Start Last Admin Trade Name Freq PRN Reason Stop Dose Admin Benzocaine 1 lozenge 01/07/25 09:57 01/07/25 11:38 Benzocaine/Menthol (*Bkc) 18 Ea Lozenge PO 1 lozenge PRN PRN Administration Sore Throat Dextrose 12.5 gm 01/07/25 04:31 01/08/25 00:32 Dextrose 50% 25 Gm/50 Ml Syringe IV PUSH 12.5 gm PRN PRN Administration Hypoglycemia Protocol Glucagon 1 mg 01/07/25 04:31 Glucagon For Inj 1 Mg Vial IM PRN PRN Hypoglycemia Protocol Glucose 15 gm 01/07/25 04:31 Glucose Oral Gel 15 Gm Of Glucse In 37.5 Gm Tube PO PRN PRN Hypoglycemia Protocol Sodium Chloride 1,000 mls @ 150 mls/hr 01/06/25 19:00 01/08/25 06:38 Normal Saline Iv IV CONT Not Given .Q6H40M ANTIONETTE Dextrose 1,000 mls @ 100 mls/hr 01/07/25 04:31 Dextrose 5% 1,000 Ml IVPB PRN PRN Hypoglycemia Protocol Ceftriaxone Sodium 1 gm/ 50 mls @ 100 mls/hr 01/07/25 05:00 01/08/25 06:58 Sodium Chloride IVPB Infused Q24H ANTIONETTE Infusion Insulin Aspart 2 - 5 units 01/07/25 06:00 01/08/25 06:20 Insulin Aspart (*Bkc) 100 Units/Ml SUB-Q Not Given Q6HR [facility] Protocol Ondansetron HCl 4 mg 01/06/25 18:56 Ondansetron Inj 4 Mg/2 Ml Vial IV PUSH Q4H PRN Nausea Pantoprazole Sodium 40 mg 01/07/25 09:00 01/08/25 09:33 Pantoprazole Sodium Iv 40 Mg Vial IV PUSH 40 mg Q12HR ANTIONETTE Administration Radiology Results: ITS Impressions Abdomen/Pelvis CT 01/06/25 17:52 IMPRESSION: 1. Small bowel obstruction with transition point in the pelvis. 2. Ill-defined stranding within the mesentery which is nonspecific however carcinomatosis is not excluded. 3. Pancreatic lesions detailed above, contrast-enhanced MRI is recommended Ankle Brachial Index 01/07/25 11:29 IMPRESSION: 1. Nondiagnostic evaluation of the left BO. 2. Right BO of 0.84 suggest mild peripheral artery disease in the right lower extremity. IMPRESSION: No acute findings. Abdomen MRI 01/07/25 15:58 IMPRESSION: 1. Minimally complex cystic lesions throughout the pancreas. Findings could be associated with intraductal papillary mucinous neoplasm or sequelae of pancreatitis. Correlation with follow-up MRI of the abdomen/pancreas in 6 months recommended. 2. Cholelithiasis with no obvious evidence of acute cholecystitis. Pericholecystic fluid present probably associated with ascites. 3. Obstructive appearing bowel gas pattern not grossly different from the January 06 CT exam. Abdomen X-Ray 01/08/25 08:01 IMPRESSION: 1. Small bowel obstruction persists. Labs Labs: Laboratory Results - last 24 hr 01/07/25 01/08/25 01/08/25 12:02 00:20 05:47 WBC RBC Hgb Hct MCV MCH MCHC RDW Plt Count MPV Immature Gran % (Auto) Neut % (Auto) Lymph % (Auto) [place] % (Auto) Eos % (Auto) Baso % (Auto) Lymph # (Auto) [place] # (Auto) Eos # (Auto) Baso # (Auto) Abs Immat Gran (auto) Absolute Neuts (auto) Absolute Nucleated RBC Total Counted Neutrophils % (Manual) Band Neutrophils % Lymphocytes % (Manual) Monocytes % (Manual) Eosinophils % (Manual) Basophils % (Manual) Nucleated RBC % Abs Neuts (Manual) Abs Lymphs (Manual) Abs Monocytes (Manual) Absolute Eos (Manual) Abs Basophils (Manual) Toxic Granulation Dohle Bodies Platelet Estimate Schistocytes Sodium Potassium Chloride Carbon Dioxide Anion Gap BUN Creatinine Estim Creat Clear Calc Estimated GFR Glucose POC Capillary Glucose 87 79 77 Lactic Acid Calcium 01/08/25 06:22 WBC 8.0 RBC 4.68 Hgb 12.6 Hct 41.7 MCV 89.1 MCH 26.9 MCHC 30.2 L RDW 14.8 H Plt Count 318 MPV 9.4 Immature Gran % (Auto) Not Reportable Neut % (Auto) Not Reportable Lymph % (Auto) Not Reportable [place] % (Auto) Not Reportable Eos % (Auto) Not Reportable Baso % (Auto) Not Reportable Lymph # (Auto) Not Reportable [place] # (Auto) Not Reportable Eos # (Auto) Not Reportable Baso # (Auto) Not Reportable Abs Immat Gran (auto) Not Reportable Absolute Neuts (auto) Not Reportable Absolute Nucleated RBC Not Reportable Total Counted 100 Neutrophils % (Manual) 54 Band Neutrophils % 32 H Lymphocytes % (Manual) 7 L Monocytes % (Manual) 5 Eosinophils % (Manual) 1 Basophils % (Manual) 1 Nucleated RBC % Not Reportable Abs Neuts (Manual) 6.88 H Abs Lymphs (Manual) 0.56 L Abs Monocytes (Manual) 0.40 Absolute Eos (Manual) 0.08 Abs Basophils (Manual) 0.08 Toxic Granulation Present Dohle Bodies Present Platelet Estimate Adequate Schistocytes None seen Sodium 138 Potassium 4.5 Chloride 106 Carbon Dioxide 23 Anion Gap 9 BUN 35 H D Creatinine 1.23 H Estim Creat Clear Calc 41 Estimated GFR 42 L Glucose 81 POC Capillary Glucose Lactic Acid 0.9 Calcium 8.8
--- NOTE | 2025-01-08 09:45 | PC.NURSE ---
Patient off of unit for small bowel follow through
[2025-01-08] MEDS: SODIUM CHLORIDE 0.9% IV 1,000 ML 150 ML IV CONT ×2 (13:01→21:07)
[2025-01-08 14:00] VITALS: BP 128/72; PULSE 93; RESP 18; TEMP 36.6; O2SAT 97
--- NOTE | 2025-01-08 14:25 | P.PNIM_ITS ---
Progress Note: A&P Assessment and Plan (1) Hypertension: Qualifiers: Hypertension type: essential hypertension Qualified Code(s): I10 - Essential (primary) hypertension Code(s): I10 - Essential (primary) hypertension Status: Chronic (2) SBO (small bowel obstruction): Code(s): K56.609 - Unspecified intestinal obstruction, unspecified as to partial versus complete obstruction Status: Acute Plan 74-year-old female patient presented with complaints of abdominal pain for the last 2-3 weeks. She has had intermittent nausea vomiting with this as well. CT abdomen showed small-bowel obstruction with transition point in pelvis, ill- defined stranding within the mesentery which is nonspecific however carcinomatosis is not excluded 1. Small-bowel obstruction: Continue with NG tube X-ray KUB with persistent obstruction Small-bowel follow-through pending Continue with IV fluids NPO Continue with IV fluids Continue with PPI Continue with ceftriaxone Surgery following 2. Diabetes mellitus: NPO status Blood glucose check q.6 hours Continue with sliding scale insulin Adjust dose as needed 3. DVT prophylaxis: SCDs 4. Code status: Full 5. Disposition: Pending improvement Time Spent With Patient Time: 39 mins Subjective Date/time seen: 01/08/25 14:25 Interval history: Continues to have NG tube Review of Systems Review of Systems: All systems reviewed & are unremarkable except as noted in HPI and below Exam Const: General: cooperative and comfortable Orientation/consciousness: patient oriented x3 HENMT: Head: normal to inspection, normocephalic and atraumatic Eyes: General: appearance normal, both eyes and all related structures Neck: Neck: full ROM Resp: Auscultation: clear to auscultation bilaterally Cardio: Rate: regular rate Rhythm: regular rhythm GI: Inspection: distended GI Palp: Yes abdominal tenderness (diffuse) Auscultation: abnormal bowel sounds (hypo RLQ, LUQ, LLQ) Skin: General skin exam: normal color Other: Multiple ulcerated areas to the lower extremities. Area around ulceration is erythematous without any drainage. Lower extremities are warm to touch and tender. Neuro: General: patient oriented x3 Extrem: General: normal exam except as noted Other: PMS BLE intact Psych: Appearance: grossly normal Mental Status: mental status grossly normal Objective Data Vital Signs Vital Signs: Vital Signs - 24 hr 01/07/25 20:00 01/07/25 21:31 01/07/25 21:58 Temperature 98.3 F Pulse Rate 91 Respiratory Rate 18 Blood Pressure 132/70 Pulse Oximetry 94 94 Oxygen Delivery Room Air Room Air 01/08/25 05:45 01/08/25 09:33 01/08/25 14:00 Temperature 97.5 F L 97.8 F Pulse Rate 87 93 Respiratory Rate 16 18 Blood Pressure 134/67 128/72 Pulse Oximetry 94 97 Oxygen Delivery Room Air Intake/Output Intake/Output: Intake & Output 01/05/25 01/06/25 01/07/25 01/08/25 23:59 23:59 23:59 23:59 Intake Total 1999 3040 850 Output Total 450 Balance 1999 2590 850 Meds/Results Medications: Active Medications Generic Name Dose Route Start Last Admin Trade Name Freq PRN Reason Stop Dose Admin Benzocaine 1 lozenge 01/07/25 09:57 01/07/25 11:38 Benzocaine/Menthol (*Bkc) 18 Ea Lozenge PO 1 lozenge PRN PRN Administration Sore Throat Dextrose 12.5 gm 01/07/25 04:31 01/08/25 00:32 Dextrose 50% 25 Gm/50 Ml Syringe IV PUSH 12.5 gm PRN PRN Administration Hypoglycemia Protocol Glucagon 1 mg 01/07/25 04:31 Glucagon For Inj 1 Mg Vial IM PRN PRN Hypoglycemia Protocol Glucose 15 gm 01/07/25 04:31 Glucose Oral Gel 15 Gm Of Glucse In 37.5 Gm Tube PO PRN PRN Hypoglycemia Protocol Sodium Chloride 1,000 mls @ 150 mls/hr 01/06/25 19:00 01/08/25 13:01 Normal Saline Iv IV CONT 150 mls/hr .Q6H40M AN[facility]ION[facility]TE Administration Dextrose 1,000 mls @ 100 mls/hr 01/07/25 04:31 Dextrose 5% 1,000 Ml IVPB PRN PRN Hypoglycemia Protocol Ceftriaxone Sodium 1 gm/ 50 mls @ 100 mls/hr 01/07/25 05:00 01/08/25 06:58 Sodium Chloride IVPB Infused Q24H [facility] Infusion Insulin Aspart 2 - 5 units 01/07/25 06:00 01/08/25 12:59 Insulin Aspart (*Bkc) 100 Units/Ml SUB-Q Not Given Q6HR [facility] Protocol Ondansetron HCl 4 mg 01/06/25 18:56 Ondansetron Inj 4 Mg/2 Ml Vial IV PUSH Q4H PRN Nausea Pantoprazole Sodium 40 mg 01/07/25 09:00 01/08/25 09:33 Pantoprazole Sodium Iv 40 Mg Vial IV PUSH 40 mg Q12HR AN[facility]IONETTE Administration Radiology Results: ITS Impressions Abdomen/Pelvis CT 01/06/25 17:52 IMPRESSION: 1. Small bowel obstruction with transition point in the pelvis. 2. Ill-defined stranding within the mesentery which is nonspecific however carcinomatosis is not excluded. 3. Pancreatic lesions detailed above, contrast-enhanced MRI is recommended Ankle Brachial Index 01/07/25 11:29 IMPRESSION: 1. Nondiagnostic evaluation of the left BO. 2. Right BO of 0.84 suggest mild peripheral artery disease in the right lower extremity. IMPRESSION: No acute findings. Abdomen MRI 01/07/25 15:58 IMPRESSION: 1. Minimally complex cystic lesions throughout the pancreas. Findings could be associated with intraductal papillary mucinous neoplasm or sequelae of pancreatitis. Correlation with follow-up MRI of the abdomen/pancreas in 6 months recommended. 2. Cholelithiasis with no obvious evidence of acute cholecystitis. Perichole cystic fluid present probably associated with ascites. 3. Obstructive appearing bowel gas pattern not grossly different from the January [address] CT exam. Abdomen X-Ray 01/08/25 08:01 IMPRESSION: 1. Small bowel obstruction persists. Labs Labs: Laboratory Results - last 24 hr 01/08/25 01/08/25 01/08/25 00:20 05:47 06:22 WBC 8.0 RBC 4.68 Hgb 12.6 Hct 41.7 MCV 89.1 MCH 26.9 MCHC 30.2 L RDW 14.8 H Plt Count 318 MPV 9.4 Immature Gran % (Auto) Not Reportable Neut % (Auto) Not Reportable Lymph % (Auto) Not Reportable [place] % (Auto) Not Reportable Eos % (Auto) Not Reportable Baso % (Auto) Not Reportable Lymph # (Auto) Not Reportable [place] # (Auto) Not Reportable Eos # (Auto) Not Reportable Baso # (Auto) Not Reportable Abs Immat Gran (auto) Not Reportable Absolute Neuts (auto) Not Reportable Absolute Nucleated RBC Not Reportable Total Counted 100 Neutrophils % (Manual) 54 Band Neutrophils % 32 H Lymphocytes % (Manual) 7 L Monocytes % (Manual) 5 Eosinophils % (Manual) 1 Basophils % (Manual) 1 Nucleated RBC % Not Reportable Abs Neuts (Manual) 6.88 H Abs Lymphs (Manual) 0.56 L Abs Monocytes (Manual) 0.40 Absolute Eos (Manual) 0.08 Abs Basophils (Manual) 0.08 Toxic Granulation Present Dohle Bodies Present Platelet Estimate Adequate Schistocytes None seen Sodium 138 Potassium 4.5 Chloride 106 Carbon Dioxide 23 Anion Gap 9 BUN 35 H D Creatinine 1.23 H Estim Creat Clear Calc 41 Estimated GFR 42 L Glucose 81 POC Capillary Glucose 79 77 Lactic Acid 0.9 Calcium 8.8 01/08/25 12:57 WBC RBC Hgb Hct MCV MCH MCHC RDW Plt Count MPV Immature Gran % (Auto) Neut % (Auto) Lymph % (Auto) [place] % (Auto) Eos % (Auto) Baso % (Auto) Lymph # (Auto) [place] # (Auto) Eos # (Auto) Baso # (Auto) Abs Immat Gran (auto) Absolute Neuts (auto) Absolute Nucleated RBC Total Counted Neutrophils % (Manual) Band Neutrophils % Lymphocytes % (Manual) Monocytes % (Manual) Eosinophils % (Manual) Basophils % (Manual) Nucleated RBC % Abs Neuts (Manual) Abs Lymphs (Manual) Abs Monocytes (Manual) Absolute Eos (Manual) Abs Basophils (Manual) Toxic Granulation Dohle Bodies Platelet Estimate Schistocytes Sodium Potassium Chloride Carbon Dioxide Anion Gap BUN Creatinine Estim Creat Clear Calc Estimated GFR Glucose POC Capillary Glucose 84 Lactic Acid Calcium Quality VTE Prophylaxis VTE prophylaxis: mechanical ordered
--- NOTE | 2025-01-08 18:30 | PC.NURSE ---
RN spoke with Dr. Cao at bedside and okay to leave NG clamped off since patient is feeling better after small bowel follow through. If patient becomes nauseous or begins vomiting reconnect NG tube to low intermittent suction.
[2025-01-08 20:12] VITALS: BP 133/86; PULSE 92; RESP 18; TEMP 36.6; O2SAT 97
[2025-01-09 04:17] VITALS: BP 144/77; PULSE 88; RESP 18; TEMP 36.5; O2SAT 98
[2025-01-09] MEDS: SODIUM CHLORIDE 0.9% IV 1,000 ML 150 ML IV CONT ×3 (04:44→20:05)
[2025-01-09 05:52] LABS: Hematocrit 41.3 % (37.0-47.0); Hemoglobin 12.4 g/dL (12.0-15.0); Mean Corpuscular HGB Conc 30.0 g/dl (32-36); Mean Corpuscular Hemoglobin 26.6 pg (26-34); Mean Corpuscular Volume 88.4 fl (80-100); Platelet Count Result 296 k/mm3 (150-375); Red Blood Count 4.67 M/mm3 (4.2-5.4); White Blood Count 9.5 K/mm3 (4.5-10.0)
[2025-01-09 06:08] LABS: Anion Gap 14 mmol/L (4-12); Blood Urea Nitrogen 28 mg/dL (7-17); Calcium 8.8 mg/dL (8.4-10.2); Carbon Dioxide 16 mmol/L (22-30); Chloride 112 mmol/L (98-107); Estimated CRCL calculation 47 ml/min; Estimated Glomerular Filt Rate 50; Glucose 93 mg/dL (65-110); Potassium 4.0 mmol/L (3.4-5.0); Sodium 142 mmol/L (137-145)
[2025-01-09] MEDS: cefTRIAXone 1 GM in SODIUM CHLORIDE 0.9% IV 50 ML 100 ML IVPB (06:09)
[2025-01-09 06:37] LABS: Band Neutrophils Percent 16 % (0-6); Eosinophils Absolute Manual 0.09 K/mm3 (0.02-0.50); Eosinophils Percent Manual 1 % (0-4); Lymphocytes Absolute Manual 1.14 K/mm3 (1.1-4.5); Lymphocytes Percent Manual 12 % (18-44); Monocytes Absolute Manual 0.57 K/mm3 (0.1-0.90); Monocytes Percent Manual 6 % (3-9); Neutrophils Absolute Manual 7.69 K/mm3 (1.3-6.7); Neutrophils Percent Manual 65 % (46-73); Total Cells Counted 100
[2025-01-09 06:38] LABS: Dohle Bodies Present; Schistocytes None Seen; Toxic Granulation Present
[2025-01-09] MEDS: PANTOPRAZOLE SODIUM IV 40 MG VIAL IV PUSH ×2 (08:59→20:07)
--- NOTE | 2025-01-09 09:50 | P.PNGS_ITS ---
Progress Note: A&P Assessment and Plan (1) SBO (small bowel obstruction): Code(s): K56.609 - Unspecified intestinal obstruction, unspecified as to partial versus complete obstruction Status: Acute Assessment and Plan: * SBFT showed no contrast in the colon at 5 hours with concern for persistent small bowel obstruction. She has started moving her bowels, but she is still having thick bilious output from her NG and was vomiting this morning. * Will get a repeat KUB. If improving, then we could consider a clamping trial today * Continue NG tube decompression, bowel rest, and IV fluids (2) Pancreatic cyst: Code(s): K86.2 - Cyst of pancreas Status: Chronic Assessment and Plan: * MRCP showed complex cystic lesions throughout the pancreas which could be associated with intraductal papillary mucinous neoplasm vs sequela pancreatitis, recommended follow-up MRI in 6 months. (3) Acute on chronic renal failure: Code(s): N17.9 - Acute kidney failure, unspecified; N18.9 - Chronic kidney disease, unspecified Status: Acute Assessment and Plan: * Improving. Continue IV fluids, management per Hospitalist, avoid nephrotoxic medications, trend labs (4) Abnormal CT of the abdomen: Code(s): R93.5 - Abnormal findings on diagnostic imaging of other abdominal regions, including retroperitoneum Status: Acute Assessment and Plan: * CT showed ill-defined stranding within the mesentery which may be nonspecific verses findings of possible carcinomatosis, as well as pancreatic lesions as mentioned above. She does have a history of anal cancer. She also has new pancreatic lesions as mentioned above. (5) DM2 (diabetes mellitus, type 2): Code(s): E11.9 - Type 2 diabetes mellitus without complications Status: Acute (6) Cholelithiases: Code(s): K80.20 - Calculus of gallbladder without cholecystitis without obstruction Status: Chronic (7) History of anal cancer: Code(s): Z85.048 - Personal history of other malignant neoplasm of rectum, rectosigmoid junction, and anus Status: Acute Assessment and Plan: * Treated with chemotherapy and radiation therapy in 2020, follows for surveillance with Dr. Mon. (8) Chronic cutaneous venous stasis ulcer: Code(s): I83.009 - Varicose veins of unspecified lower extremity with ulcer of unspecified site; L97.909 - Non-pressure chronic ulcer of unspecified part of unspecified lower leg with unspecified severity Status: Acute Assessment and Plan: * Chronic wounds with no signs of an active infection and appears stable. BO showed evidence of peripheral vascular insufficiency. Likely contributing to her chronic wounds. (9) Umbilical hernia: Code(s): K42.9 - Umbilical hernia without obstruction or gangrene Status: Acute Plan I have discussed the patient's case, recommendations, and treatment with Dr. Nicko roth. Subjective Subjective Date/Time Seen: 01/09/25 09:50 Patient reports: pain is less, flatus, bowel movement and afebrile Interval history: Patient reports having some abdominal pain and vomiting last night after the contrast test. She reports another 2 episodes of vomiting this morning. She has only had 200 cc output overnight from the NG tube. She has already had 300 cc this morning that looks like thick bilious output. She has had multiple bowel movements through the night and is passing flatus. She is feeling better now she stated. Exam Const: General: comfortable and no acute distress GI: Inspection: distended GI Palp: Yes Soft to palpation, Yes Tenderness to palpation present (GI) (across the upper abdomen), No Guarding due to palpation present (GI) and No Rebound tenderness present Auscultation: Hypoactive bowel sounds present Objective Data Vital Signs Vital Signs: Vital Signs - 24 hr 01/08/25 14:00 01/08/25 20:12 01/08/25 20:50 Temperature 97.8 F 97.9 F Pulse Rate 93 92 Respiratory Rate 18 18 Blood Pressure 128/72 133/86 Pulse Oximetry 97 97 Oxygen Delivery Room Air 01/09/25 04:17 Temperature 97.7 F Pulse Rate 88 Respiratory Rate 18 Blood Pressure 144/77 H Pulse Oximetry 98 Oxygen Delivery Intake/Output Intake/Output: Intake & Output 01/06/25 01/07/25 01/08/25 01/09/25 23:59 23:59 23:59 23:59 Intake Total 1999 3040 1850 1050 Output Total 450 700 200 Balance 1999 2590 1150 850 Meds/Results Medications: Active Medications Generic Name Dose Route Start Last Admin Trade Name Freq PRN Reason Stop Dose Admin Benzocaine 1 lozenge 01/07/25 09:57 01/07/25 11:38 Benzocaine/Menthol (*Bkc) 18 Ea Lozenge PO 1 lozenge PRN PRN Administration Sore Throat Dextrose 12.5 gm 01/07/25 04:31 01/08/25 00:32 Dextrose 50% 25 Gm/50 Ml Syringe IV PUSH 12.5 gm PRN PRN Administration Hypoglycemia Protocol Glucagon 1 mg 01/07/25 04:31 Glucagon For Inj 1 Mg Vial IM PRN PRN Hypoglycemia Protocol Glucose 15 gm 01/07/25 04:31 Glucose Oral Gel 15 Gm Of Glucse In 37.5 Gm Tube PO PRN PRN Hypoglycemia Protocol Sodium Chloride 1,000 mls @ 150 mls/hr 01/06/25 19:00 01/09/25 07:00 Normal Saline Iv IV CONT Not Given .Q6H40M [facility]ION[facility]TE Dextrose 1,000 mls @ 100 mls/hr 01/07/25 04:31 Dextrose 5% 1,000 Ml IVPB PRN PRN Hypoglycemia Protocol Ceftriaxone Sodium 1 gm/ 50 mls @ 100 mls/hr 01/07/25 05:00 01/09/25 06:39 Sodium Chloride IVPB Infused Q24H [facility] Infusion Insulin Aspart 2 - 5 units 01/07/25 06:00 01/09/25 06:18 Insulin Aspart (*Bkc) 100 Units/Ml SUB-Q Not Given Q6HR [facility] Protocol Ondansetron HCl 4 mg 01/06/25 18:56 Ondansetron Inj 4 Mg/2 Ml Vial IV PUSH Q4H PRN Nausea Pantoprazole Sodium 40 mg 01/07/25 09:00 01/09/25 08:59 Pantoprazole Sodium Iv 40 Mg Vial IV PUSH 40 mg Q12HR ANTIONETTE Administration Radiology Results: ITS Impressions Abdomen/Pelvis CT 01/06/25 17:52 IMPRESSION: 1. Small bowel obstruction with transition point in the pelvis. 2. Ill-defined stranding within the mesentery which is nonspecific however carcinomatosis is not excluded. 3. Pancreatic lesions detailed above, contrast-enhanced MRI is recommended Ankle Brachial Index 01/07/25 11:29 IMPRESSION: 1. Nondiagnostic evaluation of the left BO. 2. Right BO of 0.84 suggest mild peripheral artery disease in the right lower extremity. IMPRESSION: No acute findings. Abdomen MRI 01/07/25 15:58 IMPRESSION: 1. Minimally complex cystic lesions throughout the pancreas. Findings could be associated with intraductal papillary mucinous neoplasm or sequelae of pancreatitis. Correlation with follow-up MRI of the abdomen/pancreas in 6 months recommended. 2. Cholelithiasis with no obvious evidence of acute cholecystitis. Pericholecystic fluid present probably associated with ascites. 3. Obstructive appearing bowel gas pattern not grossly different from the January 06 CT exam. Abdomen X-Ray 01/08/25 08:01 IMPRESSION: 1. Small bowel obstruction persists. Upper GI and Small Bowel X-Ray 01/08/25 15:39 IMPRESSION: Findings concerning for small bowel obstruction. Ileus with delayed transit time could have a similar appearance. Recommend follow-up KUB later this evening or tomorrow morning if patient is managed conservatively. Labs Labs: Laboratory Results - last 24 hr 01/08/25 01/08/25 01/08/25 12:57 18:16 23:32 WBC RBC Hgb Hct MCV MCH MCHC RDW Plt Count MPV Immature Gran % (Auto) Neut % (Auto) Lymph % (Auto) [place] % (Auto) Eos % (Auto) Baso % (Auto) Lymph # (Auto) [place] # (Auto) Eos # (Auto) Baso # (Auto) Abs Immat Gran (auto) Absolute Neuts (auto) Absolute Nucleated RBC Total Counted Neutrophils % (Manual) Band Neutrophils % Lymphocytes % (Manual) Monocytes % (Manual) Eosinophils % (Manual) Nucleated RBC % Abs Neuts (Manual) Abs Lymphs (Manual) Abs Monocytes (Manual) Absolute Eos (Manual) Toxic Granulation Dohle Bodies Platelet Estimate Schistocytes Sodium Potassium Chloride Carbon Dioxide Anion Gap BUN Creatinine Estim Creat Clear Calc Estimated GFR Glucose POC Capillary Glucose 84 109 H 111 H Calcium 01/09/25 01/09/25 05:36 06:17 WBC 9.5 RBC 4.67 Hgb 12.4 Hct 41.3 MCV 88.4 MCH 26.6 MCHC 30.0 L RDW 15.0 H Plt Count 296 MPV 9.2 Immature Gran % (Auto) Not Reportable Neut % (Auto) Not Reportable Lymph % (Auto) Not Reportable [place] % (Auto) Not Reportable Eos % (Auto) Not Reportable Baso % (Auto) Not Reportable Lymph # (Auto) Not Reportable [place] # (Auto) Not Reportable Eos # (Auto) Not Reportable Baso # (Auto) Not Reportable Abs Immat Gran (auto) Not Reportable Absolute Neuts (auto) Not Reportable Absolute Nucleated RBC Not Reportable Total Counted 100 Neutrophils % (Manual) 65 Band Neutrophils % 16 H Lymphocytes % (Manual) 12 L Monocytes % (Manual) 6 Eosinophils % (Manual) 1 Nucleated RBC % Not Reportable Abs Neuts (Manual) 7.69 H Abs Lymphs (Manual) 1.14 Abs Monocytes (Manual) 0.57 Absolute Eos (Manual) 0.09 Toxic Granulation Present Dohle Bodies Present Platelet Estimate Adequate Schistocytes None seen Sodium 142 Potassium 4.0 Chloride 112 H Carbon Dioxide 16 L Anion Gap 14 H BUN 28 H Creatinine 1.06 H Estim Creat Clear Calc 47 Estimated GFR 50 L Glucose 93 POC Capillary Glucose 90 Calcium 8.8
--- NOTE | 2025-01-09 11:36 | PC.NURSE ---
I, Sindy Gardner RN, have reviewed documentation by [employer] MASON and agree with the findings.
--- NOTE | 2025-01-09 11:52 | PM.IMPN ---
Progress Note: A&P Assessment and Plan (1) Hypertension: Qualifiers: Hypertension type: essential hypertension Qualified Code(s): I10 - Essential (primary) hypertension Code(s): I10 - Essential (primary) hypertension Status: Chronic (2) SBO (small bowel obstruction): Code(s): K56.609 - Unspecified intestinal obstruction, unspecified as to partial versus complete obstruction Status: Acute Plan 74-year-old female patient presented with complaints of abdominal pain for the last 2-3 weeks. She has had intermittent nausea vomiting with this as well. CT abdomen showed small-bowel obstruction with transition point in pelvis, ill-defined stranding within the mesentery which is nonspecific however carcinomatosis is not excluded 1. Small-bowel obstruction: Continue with NG tube X-ray KUB with persistent obstruction Small-bowel follow-through pending Continue with IV fluids NPO Continue with PPI Continue with ceftriaxone Surgery following 2. Diabetes mellitus: NPO status Blood glucose check q.6 hours Continue with sliding scale insulin Adjust dose as needed 3. DVT prophylaxis: SCDs 4. Code status: Full 5. Disposition: Pending improvement Subjective Date/time seen: 01/09/25 11:52 Interval history: 74-year-old female patient presented with complaints of abdominal pain for the last 2-3 weeks. She has had intermittent nausea vomiting with this as well. CT abdomen showed small-bowel obstruction with transition point in pelvis, ill-defined stranding within the mesentery which is nonspecific however carcinomatosis is not excluded 01/09/25 Patient was seen examined bedside. She is feeling fine. Denies any chest pain, shortness off pressors. Continue to have NG tube. Continue to have abdominal pain but improving. Had 2 episodes of diarrhea this morning. 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 Plan to continue NG tube, clamping trial and repeat KUB tomorrow. Lab tests reviewed: WBC 9.5, hemoglobin 12.4 Reviewed KUB this morning. It showed partial small-bowel obstruction. Review of Systems Review of Systems: All systems reviewed & are unremarkable except as noted in HPI and below Exam Const: General: cooperative, comfortable, no acute distress, well developed, awake, average body habitus and well nourished Nutritional Appearance: average body habitus and well nourished Orientation/consciousness: oriented to person, oriented to place, oriented to time and patient oriented x3 Limitations: no limitations HENMT: Head: normal to inspection, No palpable skull fracture present, normocephalic, atraumatic and abrasion Ears: hearing grossly normal bilaterally and external ears normal Eyes: General: appearance normal, both eyes and all related structures Alignment and Position: alignment normal Periorbital: periorbital findings normal Neck: Neck: normal visual inspection and full ROM Chest: Chest palpation & inspection: normal inspection of the chest Resp: Effort & Inspection: normal respiratory effort Auscultation: clear to auscultation bilaterally Cardio: Palpation: normal PMI Rate: regular rate Rhythm: regular rhythm Heart sounds: S1 normal heart sound present, S2 normal heart sound present and Murmur heart sound present Peripheral pulses: Peripheral pulses 2+ throughout GI: Inspection: distended Auscultation: abnormal bowel sounds (hypo RLQ, LUQ, LLQ) Skin: General skin exam: normal color Wounds: no wounds Hair: normal Nails: normal Other: Multiple ulcerated areas to the lower extremities. Area around ulceration is erythematous without any drainage. Lower extremities are warm to touch and tender. Neuro: General: oriented to person, oriented to place, oriented to time and patient oriented x3 Cranial nerves: Yes Normal hearing present Extrem: General: normal to inspection and normal exam except as noted Right upper extremity: normal to inspection and shoulder/upper arm Left upper extremity: normal to inspection and shoulder/upper arm Right lower extremity: normal to inspection Left lower extremity: normal to inspection Other: PMS BLE intact Psych: Appearance: grossly normal Mental Status: mental status grossly normal Speech and movement: Normal speech and movement present Affect: normal affect Attitude: cooperative Thought process: Normal thought process present Insight: Good insight present (Psych) Judgement: Good judgement present (Psych) Objective Data Vital Signs Vital Signs: Vital Signs - 24 hr 01/08/25 14:00 01/08/25 20:12 01/08/25 20:50 Temperature 97.8 F 97.9 F Pulse Rate 93 92 Respiratory Rate 18 18 Blood Pressure 128/72 133/86 Pulse Oximetry 97 97 Oxygen Delivery Room Air 01/09/25 04:17 01/09/25 08:00 Temperature 97.7 F Pulse Rate 88 Respiratory Rate 18 Blood Pressure 144/77 H Pulse Oximetry 98 Oxygen Delivery Room Air Intake/Output Intake/Output: Intake & Output 01/06/25 01/07/25 01/08/25 01/09/25 23:59 23:59 23:59 23:59 Intake Total 1999 3040 1850 1050 Output Total 450 700 200 Balance 1999 2590 1150 850 Meds/Results Medications: Active Medications Generic Name Dose Route Start Last Admin Trade Name Freq PRN Reason Stop Dose Admin Benzocaine 1 lozenge 01/07/25 09:57 01/07/25 11:38 Benzocaine/Menthol (*Bkc) 18 Ea Lozenge PO 1 lozenge PRN PRN Administration Sore Throat Dextrose 12.5 gm 01/07/25 04:31 01/08/25 00:32 Dextrose 50% 25 Gm/50 Ml Syringe IV PUSH 12.5 gm PRN PRN Administration Hypoglycemia Protocol Glucagon 1 mg 01/07/25 04:31 Glucagon For Inj 1 Mg Vial IM PRN PRN Hypoglycemia Protocol Glucose 15 gm 01/07/25 04:31 Glucose Oral Gel 15 Gm Of Glucse In 37.5 Gm Tube PO PRN PRN Hypoglycemia Protocol Sodium Chloride 1,000 mls @ 150 mls/hr 01/06/25 19:00 01/09/25 07:00 Normal Saline Iv IV CONT Not Given .Q6H40M ANTIONETTE Dextrose 1,000 mls @ 100 mls/hr 01/07/25 04:31 Dextrose 5% 1,000 Ml IVPB PRN PRN Hypoglycemia Protocol Ceftriaxone Sodium 1 gm/ 50 mls @ 100 mls/hr 01/07/25 05:00 01/09/25 06:39 Sodium Chloride IVPB Infused Q24H ANTIONETTE Infusion Insulin Aspart 2 - 5 units 01/07/25 06:00 01/09/25 06:18 Insulin Aspart (*Bkc) 100 Units/Ml SUB-Q Not Given Q6HR [facility] Protocol Ondansetron HCl 4 mg 01/06/25 18:56 Ondansetron Inj 4 Mg/2 Ml Vial IV PUSH Q4H PRN Nausea Pantoprazole Sodium 40 mg 01/07/25 09:00 01/09/25 08:59 Pantoprazole Sodium Iv 40 Mg Vial IV PUSH 40 mg Q12HR ANTIONETTE Administration Radiology Results: ITS Impressions Abdomen/Pelvis CT 01/06/25 17:52 IMPRESSION: 1. Small bowel obstruction with transition point in the pelvis. 2. Ill-defined stranding within the mesentery which is nonspecific however carcinomatosis is not excluded. 3. Pancreatic lesions detailed above, contrast-enhanced MRI is recommended Ankle Brachial Index 01/07/25 11:29 IMPRESSION: 1. Nondiagnostic evaluation of the left BO. 2. Right BO of 0.84 suggest mild peripheral artery disease in the right lower extremity. IMPRESSION: No acute findings. Abdomen MRI 01/07/25 15:58 IMPRESSION: 1. Minimally complex cystic lesions throughout the pancreas. Findings could be associated with intraductal papillary mucinous neoplasm or sequelae of pancreatitis. Correlation with follow-up MRI of the abdomen/pancreas in 6 months recommended. 2. Cholelithiasis with no obvious evidence of acute cholecystitis. Pericholecystic fluid present probably associated with ascites. 3. Obstructive appearing bowel gas pattern not grossly different from the January 06 CT exam. Upper GI and Small Bowel X-Ray 01/08/25 15:39 IMPRESSION: Findings concerning for small bowel obstruction. Ileus with delayed transit time could have a similar appearance. Recommend follow-up KUB later this evening or tomorrow morning if patient is managed conservatively. Abdomen X-Ray 01/09/25 10:13 IMPRESSION: Findings concerning for at least partial small bowel obstruction; correlate with follow-up KUB in 4 to 6 hours or sooner if clinically appropriate. Labs Labs: Laboratory Results - last 24 hr 01/08/25 01/08/25 01/08/25 12:57 18:16 23:32 WBC RBC Hgb Hct MCV MCH MCHC RDW Plt Count MPV Immature Gran % (Auto) Neut % (Auto) Lymph % (Auto) [place] % (Auto) Eos % (Auto) Baso % (Auto) Lymph # (Auto) [place] # (Auto) Eos # (Auto) Baso # (Auto) Abs Immat Gran (auto) Absolute Neuts (auto) Absolute Nucleated RBC Total Counted Neutrophils % (Manual) Band Neutrophils % Lymphocytes % (Manual) Monocytes % (Manual) Eosinophils % (Manual) Nucleated RBC % Abs Neuts (Manual) Abs Lymphs (Manual) Abs Monocytes (Manual) Absolute Eos (Manual) Toxic Granulation Dohle Bodies Platelet Estimate Schistocytes Sodium Potassium Chloride Carbon Dioxide Anion Gap BUN Creatinine Estim Creat Clear Calc Estimated GFR Glucose POC Capillary Glucose 84 109 H 111 H Calcium 01/09/25 01/09/25 05:36 06:17 WBC 9.5 RBC 4.67 Hgb 12.4 Hct 41.3 MCV 88.4 MCH 26.6 MCHC 30.0 L RDW 15.0 H Plt Count 296 MPV 9.2 Immature Gran % (Auto) Not Reportable Neut % (Auto) Not Reportable Lymph % (Auto) Not Reportable [place] % (Auto) Not Reportable Eos % (Auto) Not Reportable Baso % (Auto) Not Reportable Lymph # (Auto) Not Reportable [place] # (Auto) Not Reportable Eos # (Auto) Not Reportable Baso # (Auto) Not Reportable Abs Immat Gran (auto) Not Reportable Absolute Neuts (auto) Not Reportable Absolute Nucleated RBC Not Reportable Total Counted 100 Neutrophils % (Manual) 65 Band Neutrophils % 16 H Lymphocytes % (Manual) 12 L Monocytes % (Manual) 6 Eosinophils % (Manual) 1 Nucleated RBC % Not Reportable Abs Neuts (Manual) 7.69 H Abs Lymphs (Manual) 1.14 Abs Monocytes (Manual) 0.57 Absolute Eos (Manual) 0.09 Toxic Granulation Present Dohle Bodies Present Platelet Estimate Adequate Schistocytes None seen Sodium 142 Potassium 4.0 Chloride 112 H Carbon Dioxide 16 L Anion Gap 14 H BUN 28 H Creatinine 1.06 H Estim Creat Clear Calc 47 Estimated GFR 50 L Glucose 93 POC Capillary Glucose 90 Calcium 8.8
[2025-01-09 14:00] VITALS: BP 141/72; PULSE 77; RESP 16; TEMP 36.7; O2SAT 98
[2025-01-09 21:17] VITALS: O2SAT 96
[2025-01-09 22:00] VITALS: BP 140/62; PULSE 74; RESP 20; TEMP 36.7; O2SAT 96
[2025-01-10] MEDS: SODIUM CHLORIDE 0.9% IV 1,000 ML 150 ML IV CONT (03:11)
[2025-01-10 04:45] VITALS: BP 161/75; PULSE 90; RESP 20; TEMP 36.5; O2SAT 98
[2025-01-10] MEDS: cefTRIAXone 1 GM in SODIUM CHLORIDE 0.9% IV 50 ML 100 ML IVPB (05:39)
[2025-01-10] MEDS: DEXTROSE 50% 25 GM/50 ML SYRINGE IV PUSH (06:24)
[2025-01-10] MEDS: GLUCAGON FOR INJ 1 MG VIAL IM (06:37)
--- NOTE | 2025-01-10 06:45 | PC.NURSE ---
Patient 0600 blood glucose 69, given 12.5 mg/ml IV push. After contacting Margarita Kraus DITCHER OPERATOR, orders given to administer Glucagon 1 mg/ml IM due to patient NPO status, in addition to BG taken 1 hour after IM given. Patient asymptomatic, vital signs stable at this time. Will continue to monitor BG with follow-up ACCU check reading. Bed in lowest position, call light within reach and fall precaution bed alarm set.
[2025-01-10 06:46] LABS: Hematocrit 39.8 % (37.0-47.0); Hemoglobin 12.2 g/dL (12.0-15.0); Mean Corpuscular HGB Conc 30.7 g/dl (32-36); Mean Corpuscular Hemoglobin 27.3 pg (26-34); Mean Corpuscular Volume 89.0 fl (80-100); Platelet Count Result 283 k/mm3 (150-375); Red Blood Count 4.47 M/mm3 (4.2-5.4); White Blood Count 9.6 K/mm3 (4.5-10.0)
[2025-01-10 07:29] LABS: Chloride 114 mmol/L (98-107)
[2025-01-10 07:33] LABS: Anion Gap 11 mmol/L (4-12); Blood Urea Nitrogen 24 mg/dL (7-17); Calcium 8.9 mg/dL (8.4-10.2); Carbon Dioxide 18 mmol/L (22-30); Estimated CRCL calculation 48 ml/min; Estimated Glomerular Filt Rate 52; Glucose 72 mg/dL (65-110); Potassium 3.6 mmol/L (3.4-5.0); Sodium 143 mmol/L (137-145)
--- NOTE | 2025-01-10 08:30 | P.PNGS_ITS ---
Progress Note: A&P Assessment and Plan (1) SBO (small bowel obstruction): Code(s): K56.609 - Unspecified intestinal obstruction, unspecified as to partial versus complete obstruction Status: Acute Assessment and Plan: much improved, exam completely benign and having bowel function, will clamp NG and hopefully remove later today, will trial clears, encouraged out of bed Subjective Subjective Date/Time Seen: 01/10/25 08:30 Interval history: feels much better, no N/V, abd pain largely resolved, +multiple BMs Review of Systems Review of Systems: All systems reviewed & are unremarkable except as noted in HPI and below Exam Const: General: cooperative, comfortable and no acute distress Resp: Auscultation: clear to auscultation bilaterally Cardio: Rate: regular rate Rhythm: regular rhythm GI: Inspection: normal to inspection and non-distended GI Palp: No abdomin al tenderness and Yes Soft to palpation Objective Data Vital Signs Vital Signs: Vital Signs - 24 hr 01/09/25 14:00 01/09/25 20:12 01/09/25 21:17 Temperature 36.7 C Pulse Rate 77 Respiratory Rate 16 Blood Pressure 141/72 H Pulse Oximetry 98 96 Oxygen Delivery Room Air Room Air 01/09/25 22:00 01/10/25 04:45 Temperature 36.7 C 36.5 C Pulse Rate 74 90 Respiratory Rate 20 20 Blood Pressure 140/62 161/75 H Pulse Oximetry 96 98 Oxygen Delivery Intake/Output Intake/Output: Intake & Output 01/07/25 01/08/25 01/09/25 01/10/25 23:59 23:59 23:59 23:59 Intake Total 3040 1850 3050 1050 Output Total 450 700 850 600 Balance 2590 1150 2200 450 Meds/Results Medications: Active Medications Generic Name Dose Route Start Last Admin Trade Name Freq PRN Reason Stop Dose Admin Benzocaine 1 lozenge 01/07/25 09:57 01/07/25 11:38 Benzocaine/Menthol (*Bkc) 18 Ea Lozenge PO 1 lozenge PRN PRN Administration Sore Throat Dextrose 12.5 gm 01/07/25 04:31 01/10/25 06:24 Dextrose 50% 25 Gm/50 Ml Syringe IV PUSH 12.5 gm PRN PRN Administration Hypoglycemia Protocol Glucagon 1 mg 01/07/25 04:31 01/10/25 06:37 Glucagon For Inj 1 Mg Vial IM 1 mg PRN PRN Administration Hypoglycemia Protocol Glucose 15 gm 01/07/25 04:31 Glucose Oral Gel 15 Gm Of Glucse In 37.5 Gm Tube PO PRN PRN Hypoglycemia Protocol Sodium Chloride 1,000 mls @ 150 mls/hr 01/06/25 19:00 01/10/25 03:11 Normal Saline Iv IV CONT 150 mls/hr .Q6H40M ANTIONETTE Administration Dextrose 1,000 mls @ 100 mls/hr 01/07/25 04:31 Dextrose 5% 1,000 Ml IVPB PRN PRN Hypoglycemia Protocol Ceftriaxone Sodium 1 gm/ 50 mls @ 100 mls/hr 01/07/25 05:00 01/10/25 06:09 Sodium Chloride IVPB Infused Q24H ANTIONETTE Infusion Insulin Aspart 2 - 5 units 01/07/25 06:00 01/10/25 06:59 Insulin Aspart (*Bkc) 100 Units/Ml SUB-Q Not Given Q6HR [facility] Protocol Ondansetron HCl 4 mg 01/06/25 18:56 Ondansetron Inj 4 Mg/2 Ml Vial IV PUSH Q4H PRN Nausea Pantoprazole Sodium 40 mg 01/07/25 09:00 01/09/25 20:07 Pantoprazole Sodium Iv 40 Mg Vial IV PUSH 40 mg Q12HR ANTIONETTE Administration Radiology Results: ITS Impressions Abdomen/Pelvis CT 01/06/25 17:52 IMPRESSION: 1. Small bowel obstruction with transition point in the pelvis. 2. Ill-defined stranding within the mesentery which is nonspecific however carcinomatosis is not excluded. 3. Pancreatic lesions detailed above, contrast-enhanced MRI is recommended Ankle Brachial Index 01/07/25 11:29 IMPRESSION: 1. Nondiagnostic evaluation of the left BO. 2. Right BO of 0.84 suggest mild peripheral artery disease in the right lower extremity. IMPRESSION: No acute findings. Abdomen MRI 01/07/25 15:58 IMPRESSION: 1. Minimally complex cystic lesions throughout the pancreas. Findings could be associated with intraductal papillary mucinous neoplasm or sequelae of pancreatitis. Correlation with follow-up MRI of the abdomen/pancreas in 6 months recommended. 2. Cholelithiasis with no obvious evidence of acute cholecystitis. Pericholecystic fluid present probably associated with ascites. 3. Obstructive appearing bowel gas pattern not grossly different from the January 06 CT exam. Upper GI and Small Bowel X-Ray 01/08/25 15:39 IMPRESSION: Findings concerning for small bowel obstruction. Ileus with delayed transit time could have a similar appearance. Recommend follow-up KUB later this evening or tomorrow morning if patient is managed conservatively. Abdomen X-Ray 01/10/25 07:59 IMPRESSION: Delayed transit of contrast which does extend through the rectosigmoid region consistent with partial small bowel obstruction or ileus. Labs Labs: Laboratory Results - last 24 hr 01/09/25 01/09/25 01/09/25 06:17 11:55 17:16 Sodium Potassium Chloride Carbon Dioxide Anion Gap BUN Creatinine Estim Creat Clear Calc Estimated GFR Glucose POC Capillary Glucose 90 88 75 Calcium 01/10/25 01/10/25 01/10/25 00:11 06:11 06:13 Sodium 143 Potassium 3.6 Chloride 114 H Carbon Dioxide 18 L Anion Gap 11 BUN 24 H Creatinine 1.04 H Estim Creat Clear Calc 48 Estimated GFR 52 L Glucose 72 POC Capillary Glucose 87 69 Calcium 8.9 01/10/25 07:16 Sodium Potassium Chloride Carbon Dioxide Anion Gap BUN Creatinine Estim Creat Clear Calc Estimated GFR Glucose POC Capillary Glucose 128 H Calcium
[2025-01-10 08:48] LABS: Band Neutrophils Percent 29 % (0-6); Basophils Absolute Manual 0.09 K/mm3 (0.0-0.1); Basophils Percent Manual 1 % (0-1); Eosinophils Absolute Manual 0.19 K/mm3 (0.02-0.50); Eosinophils Percent Manual 2 % (0-4); Lymphocytes Absolute Manual 0.67 K/mm3 (1.1-4.5); Lymphocytes Percent Manual 7.0 % (18-44); Metamyelocytes Percent 2 %; Monocytes Absolute Manual 0.86 K/mm3 (0.1-0.90); Monocytes Percent Manual 9 % (3-9); Myelocytes Percent 5 %; Neutrophils Absolute Manual 7.10 K/mm3 (1.3-6.7); Neutrophils Percent Manual 45 % (46-73); Total Cells Counted 100
[2025-01-10 08:49] LABS: Anisocytosis Occasional; Burr Cells 1+; Ovalocytes Occasional; Schistocytes None Seen
[2025-01-10] MEDS: PANTOPRAZOLE SODIUM IV 40 MG VIAL IV PUSH (08:54)
--- NOTE | 2025-01-10 12:15 | P.PNIM_ITS ---
Progress Note: A&P Assessment and Plan (1) Hypertension: Qualifiers: Hypertension type: essential hypertension Qualified Code(s): I10 - Essential (primary) hypertension Code(s): I10 - Essential (primary) hypertension Status: Chronic (2) SBO (small bowel obstruction): Code(s): K56.609 - Unspecified intestinal obstruction, unspecified as to partial versus complete obstruction Status: Acute Plan 74-year-old female patient presented with complaints of abdominal pain for the last 2-3 weeks. She has had intermittent nausea vomiting with this as well. CT abdomen showed small-bowel obstruction with transition point in pelvis, ill- defined stranding within the mesentery which is nonspecific however carcinomatosis is not excluded 1. Small-bowel obstruction: Continue with NG tube X-ray KUB with persistent obstruction Small-bowel follow-through pending Continue with IV fluids NPO Continue with PPI Continue with ceftriaxone Surgery following - 01/10 NG clamped per surgery. improved. no nausea clear diet started 2. Diabetes mellitus: NPO status Blood glucose check q.6 hours Continue with sliding scale insulin Adjust dose as needed clear diet now 3. DVT prophylaxis: SCDs 4. Code status: Full 5. Disposition: Pending improvement Time Spent With Patient Time with patient: 25 - 35 minutes Subjective Date/time seen: 01/10/25 12:15 Interval history: 74-year-old female patient presented with complaints of abdominal pain for the last 2-3 weeks. She has had intermittent nausea vomiting with this as well. CT abdomen showed small-bowel obstruction with transition point in pelvis, ill- defined stranding within the mesentery which is nonspecific however carcinomatosis is not excluded 01/09/25 Patient was seen examined bedside. She is feeling fine. Denies any chest pain, shortness off pressors. Continue to have NG tube. Continue to have abdominal pain but improving. Had 2 episodes of diarrhea this morning. Reviewed surgery [employer]NA[employer] notes. Plan to continue NG tube, clamping trial and repeat KUB tomorrow. Lab tests reviewed: WBC 9.5, hemoglobin 12.4 Reviewed KUB this morning. It showed partial small-bowel obstruction. 01/10 pt is seen and examined. surgery clamped NG. Having BM. Review of Systems Review of Systems: All systems reviewed & are unremarkable except as noted in HPI and below Constitutional: Constitutional: Reports as per HPI and Reports no additional constitutional complaints Eyes: Eyes: Reports as per HPI and Reports no additional eye complaints ENT: Reports system reviewed and no additional complaints, except as documented and Reports Normal hearing present Cardiovascular: Cardiovascular: Reports no additional cardiovascular complaints Respiratory: Respiratory: Reports as per HPI and Reports no additional respiratory complaints Gastrointestinal: Gastrointestinal: Reports as per HPI and Reports no additional gastrointestinal complaints Genitourinary: Genitourinary: Reports no additional female genitourinary complaints Musculoskeletal: Musculoskeletal: Reports no additional musculoskeletal complaints Integumentary/Breasts: Skin/Breast: Reports system reviewed and no additional complaints, except as docu Neurologic: Reports system reviewed and no additional complaints, except as documented and Reports Normal hearing present Psychiatric: Psychiatric: Reports no additional psychiatric complaints and Reports as per HPI Hematologic/Lymphatic: Hematologic/Lymphatic: Reports no additional hematologic/lymphatic complaints Allergic/Immunologic: Allergic/Immunologic: Reports no additional allergic/immunologic complaints Exam Const: General: cooperative, comfortable, no acute distress, well developed, awake, average body habitus and well nourished Nutritional Appearance: average body habitus and well nourished Orientation/consciousness: oriented to person, oriented to place, oriented to time and patient oriented x3 Limitations: no limitations HENMT: Head: normal to inspection, No palpable skull fracture present, normocephalic, atraumatic and abrasion Ears: hearing grossly normal bilaterally and external ears normal Eyes: General: appearance normal, both eyes and all related structures Alignment and Position: alignment normal Periorbital: periorbital findings normal Neck: Neck: normal visual inspection and full ROM Chest: Chest palpation & inspection: normal inspection of the chest Resp: Effort & Inspection: normal respiratory effort Auscultation: clear to auscultation bilaterally Cardio: Palpation: normal PMI Rate: regular rate Rhythm: regular rhythm Heart sounds: S1 normal heart sound present, S2 normal heart sound present and Murmur heart sound present Peripheral pulses: Peripheral pulses 2+ throughout GI: Inspection: distended Auscultation: abnormal bowel sounds (hypo RLQ, LUQ, LLQ) Skin: General skin exam: normal color Wounds: no wounds Hair: normal Nails: normal Other: Multiple ulcerated areas to the lower extremities. Area around ulceration is erythematous without any drainage. Lower extremities are warm to touch and tender. Neuro: General: oriented to person, oriented to place, oriented to time and patient oriented x3 Cranial nerves: Yes Normal hearing present Extrem: General: normal to inspection and normal exam except as noted Right upper extremity: normal to inspection and shoulder/upper arm Left upper extremity: normal to inspection and shoulder/upper arm Right lower extremity: normal to inspection Left lower extremity: normal to inspection Other: PMS BLE intact Psych: Appearance: grossly normal Mental Status: mental status grossly normal Speech and movement: Normal speech and movement present Affect: normal affect Attitude: cooperative Thought process: Normal thought process present Insight: Good insight present (Psych) Judgement: Good judgement present (Psych) Objective Data Vital Signs Vital Signs: Vital Signs - 24 hr 01/09/25 14:00 01/09/25 20:12 01/09/25 21:17 Temperature 98.1 F Pulse Rate 77 Respiratory Rate 16 Blood Pressure 141/72 H Pulse Oximetry 98 96 Oxygen Delivery Room Air Room Air 01/09/25 22:00 01/10/25 04:45 01/10/25 08:00 Temperature 98.0 F 97.7 F Pulse Rate 74 90 Respiratory Rate 20 20 Blood Pressure 140/62 161/75 H Pulse Oximetry 96 98 Oxygen Delivery Room Air Intake/Output Intake/Output: Intake & Output 01/07/25 01/08/25 01/09/25 01/10/25 23:59 23:59 23:59 23:59 Intake Total 3040 1850 3050 1050 Output Total 450 700 850 600 Balance 2590 1150 2200 450 Meds/Results Medications: Active Medications Generic Name Dose Route Start Last Admin Trade Name Freq PRN Reason Stop Dose Admin Benzocaine 1 lozenge 01/07/25 09:57 01/07/25 11:38 Benzocaine/Menthol (*Bkc) 18 Ea Lozenge PO 1 lozenge PRN PRN Administration Sore Throat Dextrose 12.5 gm 01/07/25 04:31 01/10/25 06:24 Dextrose 50% 25 Gm/50 Ml Syringe IV PUSH 12.5 gm PRN PRN Administration Hypoglycemia Protocol Glucagon 1 mg 01/07/25 04:31 01/10/25 06:37 Glucagon For Inj 1 Mg Vial IM 1 mg PRN PRN Administration Hypoglycemia Protocol Glucose 15 gm 01/07/25 04:31 Glucose Oral Gel 15 Gm Of Glucse In 37.5 Gm Tube PO PRN PRN Hypoglycemia Protocol Sodium Chloride 1,000 mls @ 150 mls/hr 01/06/25 19:00 01/10/25 03:11 Normal Saline Iv IV CONT 150 mls/hr .[id number] ANTIONETTE Administration Dextrose 1,000 mls @ 100 mls/hr 01/07/25 04:31 Dextrose 5% 1,000 Ml IVPB PRN PRN Hypoglycemia Protocol Ceftriaxone Sodium 1 gm/ 50 mls @ 100 mls/hr 01/07/25 05:00 01/10/25 06:09 Sodium Chloride IVPB Infused Q24H ANTIONETTE Infusion Insulin Aspart 2 - 5 units 01/07/25 06:00 01/10/25 06:59 Insulin Aspart (*Bkc) 100 Units/Ml SUB-Q Not Given Q6HR ANTIONETTE Protocol Ondansetron HCl 4 mg 01/06/25 18:56 Ondansetron Inj 4 Mg/2 Ml Vial IV PUSH Q4H PRN Nausea Pantoprazole Sodium 40 mg 01/07/25 09:00 01/10/25 08:54 Pantoprazole Sodium Iv 40 Mg Vial IV PUSH 40 mg Q12HR ANTIONETTE Administration Radiology Results: ITS Impressions Abdomen/Pelvis CT 01/06/25 17:52 IMPRESSION: 1. Small bowel obstruction with transition point in the pelvis. 2. Ill-defined stranding within the mesentery which is nonspecific however carcinomatosis is not excluded. 3. Pancreatic lesions detailed above, contrast-enhanced MRI is recommended Ankle Brachial Index 01/07/25 11:29 IMPRESSION: 1. Nondiagnostic evaluation of the left BO. 2. Right BO of 0.84 suggest mild peripheral artery disease in the right lower extremity. IMPRESSION: No acute findings. Abdomen MRI 01/07/25 15:58 IMPRESSION: 1. Minimally complex cystic lesions throughout the pancreas. Findings could be associated with intraductal papillary mucinous neoplasm or sequelae of pancreatitis. Correlation with follow-up MRI of the abdomen/pancreas in 6 months recommended. 2. Cholelithiasis with no obvious evidence of acute cholecystitis. Pericholecystic fluid present probably associated with ascites. 3. Obstructive appearing bowel gas pattern not grossly different from the January 06 CT exam. Upper GI and Small Bowel X-Ray 01/08/25 15:39 IMPRESSION: Findings concerning for small bowel obstruction. Ileus with delayed transit time could have a similar appearance. Recommend follow-up KUB later this evening or tomorrow morning if patient is managed conservatively. Abdomen X-Ray 01/10/25 07:59 IMPRESSION: Delayed transit of contrast which does extend through the rectosigmoid region consistent with partial small bowel obstruction or ileus. Labs Labs: Laboratory Results - last 24 hr 01/09/25 01/10/25 01/10/25 17:16 00:11 06:11 WBC 9.6 RBC 4.47 Hgb 12.2 Hct 39.8 MCV 89.0 MCH 27.3 MCHC 30.7 L RDW 15.1 H Plt Count 283 MPV 9.4 Immature Gran % (Auto) Not Reportable Neut % (Auto) Not Reportable Lymph % (Auto) Not Reportable Louisa % (Auto) Not Reportable Eos % (Auto) Not Reportable Baso % (Auto) Not Reportable Lymph # (Auto) Not Reportable Louisa # (Auto) Not Reportable Eos # (Auto) Not Reportable Baso # (Auto) Not Reportable Abs Immat Gran (auto) Not Reportable Absolute Neuts (auto) Not Reportable Absolute Nucleated RBC Not Reportable Total Counted 100 Neutrophils % (Manual) 45 L Band Neutrophils % 29 H Lymphocytes % (Manual) 7.0 L Monocytes % (Manual) 9 Eosinophils % (Manual) 2 Basophils % (Manual) 1 Metamyelocytes % 2 Myelocytes % 5 Nucleated RBC % Not Reportable Abs Neuts (Manual) 7.10 H Abs Lymphs (Manual) 0.67 L Abs Monocytes (Manual) 0.86 Absolute Eos (Manual) 0.19 Abs Basophils (Manual) 0.09 Platelet Estimate Adequate Anisocytosis Occasional Ovalocytes Occasional Mentcle Cells 1+ Schistocytes None seen Sodium 143 Potassium 3.6 Chloride 114 H Carbon Dioxide 18 L Anion Gap 11 BUN 24 H Creatinine 1.04 H Estim Creat Clear Calc 48 Estimated GFR 52 L Glucose 72 POC Capillary Glucose 75 87 Calcium 8.9 01/10/25 01/10/25 01/10/25 06:13 07:16 11:37 WBC RBC Hgb Hct MCV MCH MCHC RDW Plt Count MPV Immature Gran % (Auto) Neut % (Auto) Lymph % (Auto) Louisa % (Auto) Eos % (Auto) Baso % (Auto) Lymph # (Auto) Louisa # (Auto) Eos # (Auto) Baso # (Auto) Abs Immat Gran (auto) Absolute Neuts (auto) Absolute Nucleated RBC Total Counted Neutrophils % (Manual) Band Neutrophils % Lymphocytes % (Manual) Monocytes % (Manual) Eosinophils % (Manual) Basophils % (Manual) Metamyelocytes % Myelocytes % Nucleated RBC % Abs Neuts (Manual) Abs Lymphs (Manual) Abs Monocytes (Manual) Absolute Eos (Manual) Abs Basophils (Manual) Platelet Estimate Anisocytosis Ovalocytes Mentcle Cells Schistocytes Sodium Potassium Chloride Carbon Dioxide Anion Gap BUN Creatinine Estim Creat Clear Calc Estimated GFR Glucose POC Capillary Glucose 69 128 H 98 Calcium Quality VTE Prophylaxis VTE prophylaxis: mechanical ordered
--- NOTE | 2025-01-10 13:31 | PC.NURSE ---
I, Sindy Gardner RN, have reviewed documentation by [employer] MASON and agree with the findings.
[2025-01-10 14:00] VITALS: BP 152/72; PULSE 88; RESP 18; TEMP 36.6; O2SAT 98
--- NOTE | 2025-01-10 16:39 | PC.NURSE ---
This RN called hospitalist Jazmine, to inform her of lost IV access. No answer. Will try to call again.
--- NOTE | 2025-01-10 16:43 | PC.NURSE ---
This RN called and left a message for the hospitalist at [phone] regarding loosing IV access on the pt.
[2025-01-10] MEDS: PANTOPRAZOLE 40 MG TABLET PO (20:50)
[2025-01-10 22:00] VITALS: BP 145/70; PULSE 80; RESP 20; TEMP 36.3; O2SAT 100
[2025-01-11 06:00] VITALS: BP 150/70; PULSE 74; RESP 16; TEMP 36.3; O2SAT 93
[2025-01-11] MEDS: PANTOPRAZOLE 40 MG TABLET PO ×2 (08:21→21:59)
--- NOTE | 2025-01-11 13:44 | WPDPN ---
Progress Note: A&P Assessment and Plan (1) SBO (small bowel obstruction): Code(s): K56.609 - Unspecified intestinal obstruction, unspecified as to partial versus complete obstruction Status: Acute Assessment and Plan: Patient has responded well to non operative management. NG tube removed yesterday she has tolerated coming out. Tolerated clear liquids. We will go ahead advanced to full liquids today. Continue supportive management. Hopefully may be can advance to soft diet and maybe home later tomorrow. Subjective Date/time seen: 01/11/25 13:44 Interval history: Patient doing well. NG tube was removed yesterday and she tolerated that well. Tolerated clear liquids last night and earlier today. Having diarrhea right now but no abdominal pain and does not really feel bloated. Exam GI: Other: Abdomen is soft and minimally distended. Nontender to palpation. Benign. Objective Data Vital Signs Vital Signs: Vital Signs - 24 hr 01/10/25 14:00 01/10/25 20:50 01/10/25 22:00 Temperature 36.6 C 36.3 C L Pulse Rate 88 80 Respiratory Rate 18 20 Blood Pressure 152/72 H 145/70 H Pulse Oximetry 98 100 Oxygen Delivery Room Air 01/11/25 06:00 01/11/25 08:00 Temperature 36.3 C L Pulse Rate 74 Respiratory Rate 16 Blood Pressure 150/70 H Pulse Oximetry 93 Oxygen Delivery Room Air Intake/Output Intake/Output: Intake & Output 01/08/25 01/09/25 01/10/25 01/11/25 23:59 23:59 23:59 23:59 Intake Total 1850 3050 2420 800 Output Total 700 850 600 Balance 1150 2200 1820 800 Meds/Results Medications: Active Medications Generic Name Dose Route Start Last Admin Trade Name Freq PRN Reason Stop Dose Admin Benzocaine 1 lozenge 01/07/25 09:57 01/07/25 11:38 Benzocaine/Menthol (*Bkc) 18 Ea Lozenge PO 1 lozenge PRN PRN Administration Sore Throat Dextrose 12.5 gm 01/07/25 04:31 01/10/25 06:24 Dextrose 50% 25 Gm/50 Ml Syringe IV PUSH 12.5 gm PRN PRN Administration Hypoglycemia Protocol Glucagon 1 mg 01/07/25 04:31 01/10/25 06:37 Glucagon For Inj 1 Mg Vial IM 1 mg PRN PRN Administration Hypoglycemia Protocol Glucose 15 gm 01/07/25 04:31 Glucose Oral Gel 15 Gm Of Glucse In 37.5 Gm Tube PO PRN PRN Hypoglycemia Protocol Dextrose 1,000 mls @ 100 mls/hr 01/07/25 04:31 Dextrose 5% 1,000 Ml IVPB PRN PRN Hypoglycemia Protocol Insulin Aspart 2 - 5 units 01/07/25 06:00 01/11/25 12:18 Insulin Aspart (*Bkc) 100 Units/Ml SUB-Q Not Given Q6HR ANTIONETTE Protocol Ondansetron HCl 4 mg 01/06/25 18:56 Ondansetron Inj 4 Mg/2 Ml Vial IV PUSH Q4H PRN Nausea Pantoprazole Sodium 40 mg 01/10/25 21:00 01/11/25 08:21 Pantoprazole 40 Mg Tablet PO 40 mg Q12HR ANTIONETTE Administration Radiology Results: ITS Impressions Abdomen/Pelvis CT 01/06/25 17:52 IMPRESSION: 1. Small bowel obstruction with transition point in the pelvis. 2. Ill-defined stranding within the mesentery which is nonspecific however carcinomatosis is not excluded. 3. Pancreatic lesions detailed above, contrast-enhanced MRI is recommended Ankle Brachial Index 01/07/25 11:29 IMPRESSION: 1. Nondiagnostic evaluation of the left BO. 2. Right BO of 0.84 suggest mild peripheral artery disease in the right lower extremity. IMPRESSION: No acute findings. Abdomen MRI 01/07/25 15:58 IMPRESSION: 1. Minimally complex cystic lesions throughout the pancreas. Findings could be associated with intraductal papillary mucinous neoplasm or sequelae of pancreatitis. Correlation with follow-up MRI of the abdomen/pancreas in 6 months recommended. 2. Cholelithiasis with no obvious evidence of acute cholecystitis. Pericholecystic fluid present probably associated with ascites. 3. Obstructive appearing bowel gas pattern not grossly different from the January 06 CT exam. Upper GI and Small Bowel X-Ray 01/08/25 15:39 IMPRESSION: Findings concerning for small bowel obstruction. Ileus with delayed transit time could have a similar appearance. Recommend follow-up KUB later this evening or tomorrow morning if patient is managed conservatively. Abdomen X-Ray 01/10/25 07:59 IMPRESSION: Delayed transit of contrast which does extend through the rectosigmoid region consistent with partial small bowel obstruction or ileus. Labs Labs: Laboratory Results - last 24 hr 01/10/25 01/11/25 01/11/25 17:57 00:07 06:23 POC Capillary Glucose 80 156 H 162 H 01/11/25 11:35 POC Capillary Glucose 152 H
--- NOTE | 2025-01-11 14:08 | P.PNIM_ITS ---
Progress Note: A&P Assessment and Plan (1) Hypertension: Qualifiers: Hypertension type: essential hypertension Qualified Code(s): I10 - Essential (primary) hypertension Code(s): I10 - Essential (primary) hypertension Status: Chronic (2) SBO (small bowel obstruction): Code(s): K56.609 - Unspecified intestinal obstruction, unspecified as to partial versus complete obstruction Status: Acute Plan 74-year-old female patient presented with complaints of abdominal pain for the last 2-3 weeks. She has had intermittent nausea vomiting with this as well. CT abdomen showed small-bowel obstruction with transition point in pelvis, ill- defined stranding within the mesentery which is nonspecific however carcinomatosis is not excluded 1. Small-bowel obstruction: Continue with NG tube X-ray KUB with persistent obstruction Small-bowel follow-through pending Continue with IV fluids NPO Continue with PPI Continue with ceftriaxone Surgery following - 01/10 NG clamped per surgery. improved. no nausea clear diet started 01/11- NG removed. pt doing well. monitor for n/v/d 2. Diabetes mellitus: NPO status Blood glucose check q.6 hours Continue with sliding scale insulin Adjust dose as needed clear diet now- advance per surgery 3. DVT prophylaxis: SCDs 4. Code status: Full 5. Disposition: Pending improvement Time Spent With Patient Time with patient: 25 - 35 minutes Subjective Date/time seen: 01/11/25 14:08 Interval history: Pt is seen and examined. Patient doing well. NG tube was removed yesterday and she tolerated that well. Tolerated clear liquids last night and earlier today. A bit bloated but no nausea. able to get up and move around. family at the bedside, updated on plan of care. Review of Systems Review of Systems: All systems reviewed & are unremarkable except as noted in HPI and below Constitutional: Constitutional: Reports as per HPI and Reports no additional constitutional complaints Eyes: Eyes: Reports as per HPI and Reports no additional eye complaints ENT: Reports system reviewed and no additional complaints, except as documented and Reports Normal hearing present Cardiovascular: Cardiovascular: Reports no additional cardiovascular complaints Respiratory: Respiratory: Reports as per HPI and Reports no additional respiratory complaints Gastrointestinal: Gastrointestinal: Reports as per HPI and Reports no additional gastrointestinal complaints Genitourinary: Genitourinary: Reports no additional female genitourinary complaints Musculoskeletal: Musculoskeletal: Reports no additional musculoskeletal complaints Integumentary/Breasts: Skin/Breast: Reports system reviewed and no additional complaints, except as docu Neurologic: Reports system reviewed and no additional complaints, except as documented and Reports Normal hearing present Psychiatric: Psychiatric: Reports no additional psychiatric complaints and Reports as per HPI Hematologic/Lymphatic: Hematologic/Lymphatic: Reports no additional hematologic/lymphatic complaints Allergic/Immunologic: Allergic/Immunologic: Reports no additional allergic/immunologic complaints Exam Const: General: cooperative, comfortable, no acute distress, well developed, awake, average body habitus and well nourished Nutritional Appearance: average body habitus and well nourished Orientation/consciousness: oriented to person, oriented to place, oriented to time and patient oriented x3 Limitations: no limitations HENMT: Head: normal to inspection, No palpable skull fracture present, normocephalic, atraumatic and abrasion Ears: hearing grossly normal bilaterally and external ears normal Eyes: General: appearance normal, both eyes and all related structures Alignment and Position: alignment normal Periorbital: periorbital findings normal Neck: Neck: normal visual inspection and full ROM Chest: Chest palpation & inspection: normal inspection of the chest Resp: Effort & Inspection: normal respiratory effort Auscultation: clear to auscultation bilaterally Cardio: Palpation: normal PMI Rate: regular rate Rhythm: regular rhythm Heart sounds: S1 normal heart sound present, S2 normal heart sound present and Murmur heart sound present Peripheral pulses: Peripheral pulses 2+ throughout GI: Inspection: distended GI Palp: Yes Soft to palpation Auscultation: normal bowel sounds Skin: General skin exam: normal color Wounds: no wounds Hair: normal Nails: normal Other: Multiple ulcerated areas to the lower extremities. Area around ulceration is erythematous without any drainage. Lower extremities are warm to touch and tender. Neuro: General: oriented to person, oriented to place, oriented to time and patient oriented x3 Cranial nerves: Yes Normal hearing present Extrem: General: normal to inspection and normal exam except as noted Right upper extremity: normal to inspection and shoulder/upper arm Left upper extremity: normal to inspection and shoulder/upper arm Right lower extremity: normal to inspection Left lower extremity: normal to inspection Other: PMS BLE intact Psych: Appearance: grossly normal Mental Status: mental status grossly normal Speech and movement: Normal speech and movement present Affect: normal affect Attitude: cooperative Thought process: Normal thought pro cess present Insight: Good insight present (Psych) Judgement: Good judgement present (Psych) Objective Data Vital Signs Vital Signs: Vital Signs - 24 hr 01/10/25 20:50 01/10/25 22:00 01/11/25 06:00 Temperature 97.4 F L 97.4 F L Pulse Rate 80 74 Respiratory Rate 20 16 Blood Pressure 145/70 H 150/70 H Pulse Oximetry 100 93 Oxygen Delivery Room Air 01/11/25 08:00 Temperature Pulse Rate Respiratory Rate Blood Pressure Pulse Oximetry Oxygen Delivery Room Air Intake/Output Intake/Output: Intake & Output 01/08/25 01/09/25 01/10/25 01/11/25 23:59 23:59 23:59 23:59 Intake Total 1850 3050 2420 800 Output Total 700 850 600 Balance 1150 2200 1820 800 Meds/Results Medications: Active Medications Generic Name Dose Route Start Last Admin Trade Name Freq PRN Reason Stop Dose Admin Benzocaine 1 lozenge 01/07/25 09:57 01/07/25 11:38 Benzocaine/Menthol (*Bkc) 18 Ea Lozenge PO 1 lozenge PRN PRN Administration Sore Throat Dextrose 12.5 gm 01/07/25 04:31 01/10/25 06:24 Dextrose 50% 25 Gm/50 Ml Syringe IV PUSH 12.5 gm PRN PRN Administration Hypoglycemia Protocol Glucagon 1 mg 01/07/25 04:31 01/10/25 06:37 Glucagon For Inj 1 Mg Vial IM 1 mg PRN PRN Administration Hypoglycemia Protocol Glucose 15 gm 01/07/25 04:31 Glucose Oral Gel 15 Gm Of Glucse In 37.5 Gm Tube PO PRN PRN Hypoglycemia Protocol Dextrose 1,000 mls @ 100 mls/hr 01/07/25 04:31 Dextrose 5% 1,000 Ml IVPB PRN PRN Hypoglycemia Protocol Insulin Aspart 2 - 5 units 01/07/25 06:00 01/11/25 12:18 Insulin Aspart (*Bkc) 100 Units/Ml SUB-Q Not Given Q6HR [facility] Protocol Ondansetron HCl 4 mg 01/06/25 18:56 Ondansetron Inj 4 Mg/2 Ml Vial IV PUSH Q4H PRN Nausea Pantoprazole Sodium 40 mg 01/10/25 21:00 01/11/25 08:21 Pantoprazole 40 Mg Tablet PO 40 mg Q12HR [facility] Administration Radiology Results: ITS Impressions Abdomen/Pelvis CT 01/06/25 17:52 IMPRESSION: 1. Small bowel obstruction with transition point in the pelvis. 2. Ill-defined stranding within the mesentery which is nonspecific however carcinomatosis is not excluded. 3. Pancreatic lesions detailed above, contrast-enhanced MRI is recommended Ankle Brachial Index 01/07/25 11:29 IMPRESSION: 1. Nondiagnostic evaluation of the left BO. 2. Right BO of 0.84 suggest mild peripheral artery disease in the right lower extremity. IMPRESSION: No acute findings. Abdomen MRI 01/07/25 15:58 IMPRESSION: 1. Minimally complex cystic lesions throughout the pancreas. Findings could be associated with intraductal papillary mucinous neoplasm or sequelae of pancreatitis. Correlation with follow-up MRI of the abdomen/pancreas in 6 months recommended. 2. Cholelithiasis with no obvious evidence of acute cholecystitis. Peric holecystic fluid present probably associated with ascites. 3. Obstructive appearing bowel gas pattern not grossly different from the January 06 CT exam. Upper GI and Small Bowel X-Ray 01/08/25 15:39 IMPRESSION: Findings concerning for small bowel obstruction. Ileus with delayed transit time could have a similar appearance. Recommend follow-up KUB later this evening or tomorrow morning if patient is managed conservatively. Abdomen X-Ray 01/10/25 07:59 IMPRESSION: Delayed transit of contrast which does extend through the rectosigmoid region consistent with partial small bowel obstruction or ileus. Labs Labs: Laboratory Results - last 24 hr 01/10/25 01/11/25 01/11/25 17:57 00:07 06:23 POC Capillary Glucose 80 156 H 162 H 01/11/25 11:35 POC Capillary Glucose 152 H Quality VTE Prophylaxis VTE prophylaxis: mechanical ordered
[2025-01-11 14:54] VITALS: BP 166/89; PULSE 84; RESP 16; TEMP 36.5; O2SAT 96
[2025-01-11 20:40] VITALS: BP 147/81; PULSE 81; RESP 22; TEMP 36.6; O2SAT 97
[2025-01-12 06:00] VITALS: BP 133/75; PULSE 79; RESP 16; TEMP 36.8; O2SAT 99
[2025-01-12] MEDS: PANTOPRAZOLE 40 MG TABLET PO (09:52)
--- NOTE | 2025-01-12 10:44 | P.PN_ITS ---
Progress Note: A&P Assessment and Plan (1) Ventral hernia: Qualifiers: Obstruction and gangrene presence: without obstruction or gangrene Qualified Code(s): K43.9 - Ventral hernia without obstruction or gangrene Code(s): K43.9 - Ventral hernia without obstruction or gangrene Status: Chronic Assessment and Plan: Periumbilical ventral hernia containing fluid on initial admission CT scan. Nontender and asymptomatic at this time. Will have the patient follow-up Dr. Cao in the office in a couple of weeks for further evaluation as an outpatient. (2) SBO (small bowel obstruction): Code(s): K56.609 - Unspecified intestinal obstruction, unspecified as to partial versus complete obstruction Status: Acute Assessment and Plan: Partial small-bowel obstruction has resolved. She is not having bowel movements and tolerating diet. Advanced to soft diet today. If she tolerates that she can discharge home later today with follow-up in the office Dr. Cao. (3) Pancreatic cyst: Code(s): K86.2 - Cyst of pancreas Status: Chronic Assessment and Plan: Sent off finding on CT scan. Patient follow-up see Dr. Cao in the office in about 2 weeks and discuss any further outpatient workup. Subjective Date/time seen: 01/12/25 10:44 Interval history: Patient doing well today. Complaints of any pain or nausea. Continue to have bowel movements started have some formed her bowel movements. Tolerated full liquids and going to get soft diet for lunch. No fever. Hemodynamically stable. Exam GI: Other: Abdomen is soft and nondistended. Nontender to palpation. Periumbilical bulge which is nontender. CT scan on admission showed this to be a fluid-filled the hernia sac. No bowel involvement. Exam is benign. Objective Data Vital Signs Vital Signs: Vital Signs - 24 hr 01/11/25 14:54 01/11/25 20:40 01/11/25 22:00 Temperature 36.5 C 36.6 C Pulse Rate 84 81 Respiratory Rate 16 22 H Blood Pressure 166/89 H 147/81 H Pulse Oximetry 96 97 Oxygen Delivery Room Air 01/12/25 06:00 Temperature 36.8 C Pulse Rate 79 Respiratory Rate 16 Blood Pressure 133/75 Pulse Oximetry 99 Oxygen Delivery Intake/Output Intake/Output: Intake & Output 01/09/25 01/10/25 01/11/2501/12/25 23:59 23:59 23:59 23:59 Intake Total 3050 2420 1290 540 Output Total 850 600 Balance 2200 1820 1290 540 Meds/Results Medications: Active Medications Generic Name Dose Route Start Last Admin Trade Name Freq PRN Reason Stop Dose Admin Benzocaine 1 lozenge 01/07/25 09:57 01/07/25 11:38 Benzocaine/Menthol (*Bkc) 18 Ea Lozenge PO 1 lozenge PRN PRN Administration Sore Throat Dextrose 12.5 gm 01/07/25 04:31 01/10/25 06:24 Dextrose 50% 25 Gm/50 Ml Syringe IV PUSH 12.5 gm PRN PRN Administration Hypoglycemia Protocol Glucagon 1 mg 01/07/25 04:31 01/10/25 06:37 Glucagon For Inj 1 Mg Vial IM 1 mg PRN PRN Administration Hypoglycemia Protocol Glucose 15 gm 01/07/25 04:31 Glucose Oral Gel 15 Gm Of Glucse In 37.5 Gm Tube PO PRN PRN Hypoglycemia Protocol Dextrose 1,000 mls @ 100 mls/hr 01/07/25 04:31 Dextrose 5% 1,000 Ml IVPB PRN PRN Hypoglycemia Protocol Insulin Aspart 2 - 5 units 01/07/25 06:00 01/12/25 07:30 Insulin Aspart (*Bkc) 100 Units/Ml SUB-Q Not Given Q6HR [facility] Protocol Ondansetron HCl 4 mg 01/06/25 18:56 Ondansetron Inj 4 Mg/2 Ml Vial IV PUSH Q4H PRN Nausea Pantoprazole Sodium 40 mg 01/10/25 21:00 01/12/25 09:52 Pantoprazole 40 Mg Tablet PO 40 mg Q12HR [facility] Administration Radiology Results: ITS Impressions Abdomen/Pelvis CT 01/06/25 17:52 IMPRESSION: 1. Small bowel obstruction with transition point in the pelvis. 2. Ill-defined stranding within the mesentery which is nonspecific however carcinomatosis is not excluded. 3. Pancreatic lesions detailed above, contrast-enhanced MRI is recommended Ankle Brachial Index 01/07/25 11:29 IMPRESSION: 1. Nondiagnostic evaluation of the left BO. 2. Right BO of 0.84 suggest mild peripheral artery disease in the right lower extremity. IMPRESSION: No acute findings. Abdomen MRI 01/07/25 15:58 IMPRESSION: 1. Minimally complex cystic lesions throughout the pancreas. Findings could be associated with intraductal papillary mucinous neoplasm or sequelae of pancreatitis. Correlation with follow-up MRI of the abdomen/pancreas in 6 months recommended. 2. Cholelithiasis with no obvious evidence of acute cholecystitis. Pericholecystic fluid present probably associated with ascites. 3. Obstructive appearing bowel gas pattern not grossly different from the [place] 17 CT exam. Upper GI and Small Bowel X-Ray 01/08/25 15:39 IMPRESSION: Findings concerning for small bowel obstruction. Ileus with delayed transit time could have a similar appearance. Recommend follow-up KUB later this evening or tomorrow morning if patient is managed conservatively. Abdomen X-Ray 01/10/25 07:59 IMPRESSION: Delayed transit of contrast which does extend through the rectosigmoid region consistent with partial small bowel obstruction or ileus. Labs Labs: Laboratory Results - last 24 hr 01/11/25 01/11/25 01/12/25 11:35 18:12 00:29 POC Capillary Glucose 152 H 173 H 152 H 01/12/25 07:32 POC Capillary Glucose 156 H
--- NOTE | 2025-01-12 11:00 | P.DS_ITS ---
DS: Admitting Diagnosis Discharge Date 01/12 Admitting Diagnosis sbo DS: Discharge Diagnosis Discharge Diagnosis (1) Hypertension: Qualifiers: Hypertension type: essential hypertension Qualified Code(s): I10 - Essential (primary) hypertension Code(s): I10 - Essential (primary) hypertension Status: Chronic (2) SBO (small bowel obstruction): Code(s): K56.609 - Unspecified intestinal obstruction, unspecified as to partial versus complete obstruction Status: Acute DS: Summary Hospital Course Hospital Course: 74-year-old female patient presented with complaints of abdominal pain for the last 2-3 weeks. She has had intermittent nausea vomiting with this as well. CT abdomen showed small-bowel obstruction with transition point in pelvis, ill- defined stranding within the mesentery which is nonspecific however carcinomatosis is not excluded 1. Small-bowel obstruction: NG tube inserted X-ray KUB with persistent obstruction Continue with PPI Continue with ceftriaxone Surgery following - 01/10 NG clamped per surgery. improved. no nausea clear diet started 01/11- NG removed. pt doing well. monitor for n/v/d 01/12- diet advanced and pt doing well. Cleared for discharge per surgery. Periumbilical ventral hernia containing fluid on initial admission CT scan. Nontender and asymptomatic at this time. Will have the patient follow-up Dr. Cao in the office in a couple of weeks for further evaluation as an outpatient. # Pancreatic cyst: Surgery: Sent off finding on CT scan. Patient follow-up see Dr. Cao in the office in about 2 weeks and discuss any further outpatient workup. Status at Discharge Functional status at discharge: independent ambulation Overall status at discharge: patient is progressing back to baseline Time Spent with Patient Time attestation: Total time spent providing and/or coordinating discharge services: Time spent: Greater than 30 minutes Exam Const: General: cooperative, comfortable, no acute distress, well developed, awake, average body habitus and well nourished Nutritional Appearance: average body habitus and well nourished Orientation/consciousness: oriented to person, oriented to place, oriented to time and patient oriented x3 Limitations: no limitations HENMT: Head: normal to inspection, No palpable skull fracture present, normocephalic, atraumatic and abrasion Ears: hearing grossly normal bilaterally and external ears normal Eyes: General: appearance normal, both eyes and all related structures Neck: Neck: normal visual inspection and full ROM Chest: Chest palpation & inspection: normal inspection of the chest Resp: Effort & Inspection: normal respiratory effort Auscultation: clear to auscultation bilaterally Cardio: Palpation: normal PMI Rate: regular rate Rhythm: regular rhythm Heart sounds: S1 normal heart sound present, S2 normal heart sound present and Murmur heart sound present Peripheral pulses: Peripheral pulses 2+ throughout GI: Inspection: distended Auscultation: normal bowel sounds and abnormal bowel sounds (hypo RLQ, LUQ, LLQ) Skin: General skin exam: normal color Wounds: no wounds Hair: normal Nails: normal Other: Multiple ulcerated areas to the lower extremities. Area around ulceration is erythematous without any drainage. Lower extremities are warm to touch and tender. Neuro: General: oriented to person, oriented to place, oriented to time and patient oriented x3 Cranial nerves: Yes Normal hearing present Extrem: General: normal to inspection and normal exam except as noted Right upper extremity: normal to inspection and shoulder/upper arm Left upper extremity: normal to inspection and shoulder/upper arm Right lower extremity: normal to inspection Left lower extremity: normal to inspection Other: PMS BLE intact Psych: Appearance: grossly normal Mental Status: mental status grossly normal Speech and movement: Normal speech and movement present Affect: normal affect Attitude: cooperative Thought process: Normal thought process present Insight: Good insight present (Psych) Judgement: Good judgement present (Psych) DS: Data Data Completed and Pending Completed studies during hospitalization: abd xray, ct abd/pelvis, abd mri Labs on day of discharge: Labs from last 24 hours 01/12/25 01/12/25 01/11/25 07:32 00:29 18:12 POC Capillary Glucose 156 H 152 H 173 H 01/11/25 11:35 POC Capillary Glucose 152 H Discharge Plan Discharge Attending physician on discharge: Heath Shepard Consulting providers: uRfina Cao; Britney Hill; Jose L Ramos Discharging Clinician: Griselda Wolfe Patient Disposition: Home Activity: unlimited Diet: regular Discharge Instructions: Patient may discharge home today if tolerating solid food. Follow-up see Dr. Cao in the office in 2 weeks. Patient to call [phone] for an appointment. No activity restrictions at discharge. To have a normal diabetic diet at home. Discharge medications as per hospitalist. No additional medications from general surgery standpoint. Patient Instructions: Antibiotic Form, Bowel Obstruction (GEN) Patient Language: Frisian Stand Alone Forms: General Discharge Information Follow-up/Referrals: Rufina Cao MD [Physician, General Surgery] Referral Note: Follow-up in office with Dr. Cao in 2 weeks. Jonnie Barrow MD [Primary Care Provider, [facility]] - 2 Weeks Discharge Medications: Continued aspirin [Adult Aspirin Regimen] 81 mg tablet,delayed release (DR/EC) 81 mg PO DAILY potassium chloride 10 mEq capsule, extended release See Rx Instructions .ROUTE .COMPLEX Rx Instructions: TAKE 1 CAPSULE BY MOUTH EVERY OTHER DAY metoprolol succinate 25 mg tablet extended release 24 hr See Rx Instructions .ROUTE .COMPLEX Qty: 45 1RF Dose Instruction: TAKE 1/2 TABLET BY MOUTH EVERY DAY AT BEDTIME Rx Instructions: TAKE 1/2 TABLET BY MOUTH EVERY DAY AT BEDTIME metformin 1,000 mg tablet See Rx Instructions .ROUTE .COMPLEX Qty: 180 1RF Dose Instruction: TAKE 1 TABLET BY MOUTH TWICE A DAY Rx Instructions: TAKE 1 TABLET BY MOUTH TWICE A DAY furosemide 40 mg tablet See Rx Instructions .ROUTE .COMPLEX Qty: 90 1RF Dose Instruction: TAKE 1 TABLET BY MOUTH EVERY DAY IN THE MORNING Rx Instructions: TAKE 1 TABLET BY MOUTH EVERY DAY IN THE MORNING irbesartan 300 mg tablet See Rx Instructions .ROUTE .COMPLEX Qty: 90 1RF Dose Instruction: TAKE 1 TABLET BY MOUTH EVERY DAY Rx Instructions: TAKE 1 TABLET BY MOUTH EVERY DAY glimepiride 2 mg tablet See Rx Instructions .ROUTE .COMPLEX Qty: 135 1RF Dose Instruction: TAKE 1 TABLET BY MOUTH IN THE MORNING AND 0.5 TABLETS IN THE EVENING Rx Instructions: TAKE 1 TABLET BY MOUTH IN THE MORNING AND 0.5 TABLETS IN THE EVENING atorvastatin 10 mg tablet See Rx Instructions .ROUTE .COMPLEX Qty: 90 1RF Dose Instruction: TAKE 1 TABLET BY MOUTH EVERY DAY Rx Instructions: TAKE 1 TABLET BY MOUTH EVERY DAY Jardiance 25 mg tablet 25 mg PO QAM Qty: 90 1RF Date of admission: 01/06/25 18:57 Primary Care Provider: Jonnie Barrow Admitting Provider: Shay Almeida Attending physician on admission: Shay Almeida Condition: Improved Quality VTE Prophylaxis VTE prophylaxis: mechanical ordered Hospitalist MIPS Heart Failure (Exclusion) Patient has history of Heart Transplant or Left Ventricular Assistive Device?: No IF YES, STOP HERE Heart Failure (Qualifier) Patient has current or prior documentation of LVEF less than or equal to 40%, or mod/servere depressed LVSF?: No IF NO, STOP HERE
== END 2025-01-12 13:55 | disposition home or self-care (01) | DRG 389 ==
LOC: ANHED 18:56 → ANH3MEDSUR 19:52
PROVIDERS: Nurse Practitioner; Admitting Provider Student in an Organized Health Care Education/Training Program; Emergency Provider Physician Assistant; PCP Family Medicine; Visit Provider Nurse Practitioner
DX: K56.600 Partial intestinal obstruction, unspecified as to cause (principal); K86.2 Cyst of pancreas; N17.9 Acute kidney failure, unspecified; L97.929 Non-pressure chronic ulcer of unspecified part of left lower leg with unspecified severity; L97.919 Non-pressure chronic ulcer of unspecified part of right lower leg with unspecified severity; K42.9 Umbilical hernia without obstruction or gangrene; E78.5 Hyperlipidemia, unspecified; K80.20 Calculus of gallbladder without cholecystitis without obstruction; E11.22 Type 2 diabetes mellitus with diabetic chronic kidney disease; E87.5 Hyperkalemia; I12.9 Hypertensive chronic kidney disease with stage 1 through stage 4 chronic kidney disease, or unspecified chronic kidney disease; N18.9 Chronic kidney disease, unspecified; E86.0 Dehydration; E66.9 Obesity, unspecified; I87.2 Venous insufficiency (chronic) (peripheral); Z96.651 Presence of right artificial knee joint; Z68.32 Body mass index [BMI] 32.0-32.9, adult; Z79.82 Long term (current) use of aspirin; Z85.048 Personal history of other malignant neoplasm of rectum, rectosigmoid junction, and anus
CPT/HCPCS: 36415; 74018; 74176; 74183; 74250; 80048; 80053; 82948; 83036; 83605; 85025; 85610; 85730; 86850; 86900; 86901; 93005; 93922; 96361; 96374; 96375; 99285; A9270; A9577; J0696; J1610; J2405; J2470; J7030